=== PATIENT | female | born 1935 | race Asian ===

== ENCOUNTER 2016-07-24 17:00 | Inpatient (IN) | payer MEDICARE, BC ==
[~2016-07-24] VITALS: Ht 152.4 cm; Wt 54.0 kg
[2016-07-24] MEDS ORDERED: ONDANSETRON 4 MG INJ IV STA (17:24)
[2016-07-24] MEDS ORDERED: morphine 4 MG/ML VIAL IV STA (17:24)
[2016-07-24] MEDS ORDERED: SOD CHLORIDE 0.9% 1,000 ML IV STA ×2 (17:25→18:36)
[2016-07-24 17:35] LABS: ADD SCAN DIFF NO
[2016-07-24 17:37] LABS: BASOPHILS % 0.1 % (0.0-2.0); EOSINOPHILS % 0.1 % (0.0-7.0); HEMATOCRIT 43.7 % (37.0-47.0); HEMOGLOBIN 15.1 g/dl (12.0-16.0); LYMPHOCYTES # 0.9 10^3/ul (0.8-2.9); LYMPHOCYTES % 5.3 % (15.0-51.0); MEAN CORPUSCULAR HEMOGLOBIN 31.1 pg (29.0-33.0); MEAN CORPUSCULAR HGB CONC 34.6 g/dl (32.0-37.0); MEAN CORPUSCULAR VOLUME 89.9 fl (82.0-101.0); MEAN PLATELET VOLUME 9.8 fl (7.4-10.4); MONOCYTE # 1.1 10^3/ul (0.3-0.9); MONOCYTES % 6.5 % (0.0-11.0); NEUTROPHIL # 15.3 10^3/ul (1.6-7.5); NEUTROPHILS % 87.3 % (39.0-77.0); PLATELET COUNT 305 10^3/UL (140-415); RED BLOOD COUNT 4.86 10^6/ul (4.20-5.40); WHITE BLOOD COUNT 17.5 10^3/ul (4.8-10.8)
[2016-07-24 17:46] LABS: INR 1.09; PROTIME 14.1 Sec (12.2-14.2); PT RATIO 1.1
[2016-07-24 17:47] LABS: PARTIAL THROMBOPLASTIN TIME 25.4 Sec (25.0-35.0)
[2016-07-24 17:51] LABS: ALBUMIN 3.5 g/dl (3.3-4.9); ALBUMIN/GLOBULIN RATIO 1.12; BILIRUBIN,INDIRECT 0.9 mg/dl (0-1.1); BILIRUBIN,TOTAL 0.9 mg/dl (0.2-1.3); CALCIUM 8.5 mg/dl (8.4-10.2); CREATININE 0.64 mg/dl (0.44-1.00); POTASSIUM 4.1 mmol/L (3.5-5.1); TOTAL PROTEIN 6.6 g/dl (6.1-8.1)
[2016-07-24 18:01] LABS: TROPONIN-I 0.069 ng/ml (0.00-0.12)
--- NOTE | 2016-07-24 18:32 | RADRPT ---
PROCEDURE: XR Chest. CLINICAL INDICATION: Chest and abdomen pain. TECHNIQUE: Single frontal view. COMPARISON: None. FINDINGS: There is mild right basilar atelectasis. The lungs are otherwise clear. The heart size is normal. There is calcification in the aorta consistent with atherosclerosis. There is no pleural effusion. There is no pneumothorax. IMPRESSION: 1. Mild right basilar atelectasis. 2. Atherosclerosis. RPTAT: QQ .Burke Marcus MD, MD Date Time Electronically viewed and signed by .Burke Marcus MD, MD on 07/24/2016 18:32 .R/
[2016-07-24] MEDS ORDERED: CEFEPIME 2GM/50 ML (PMX) 50 ML IVPB STA (18:36)
[2016-07-24] MEDS ORDERED: BLOOD PRESSURE PO (18:36)
[2016-07-24] MEDS ORDERED: CHOLESTEROL PO (18:36)
--- NOTE | 2016-07-24 18:40 | RADRPT ---
PROCEDURE: US Abdomen Limited . CLINICAL INDICATION: Abdominal pain TECHNIQUE: Multiple real-time images were acquired of the patient's right upper quadrant abdomen u tilizing a high resolution transducer. COMPARISON: None FINDINGS: The liver measures 12.4 cm and demonstrates a coarsened echogenicity. The gallbladder is filled with a small amount of bile. 3 mm echogenic potential stone is identified in the gallbladder. The gallbl adder wall is thickened at 4.3 mm. Mild prominence of the mucosa of the gallbladder wall is seen. A moderate amount of pericholecystic fluid is identified adjacent to the gallbladder. The common bile duct measures 3.0 mm in diameter. The visualized portions of the proximal pancreas are unremarkabl e. The tail of the pancreas is not well visualized. Antegrade flow is seen in the portal vein. Right kidney measures 10.2 cm. Right kidney demonstrates a normal echogenicity. No hydronephrosis, masses or stones are noted. IMPRESSION: Cholelithiasis with a thickened gallbladder wall and pericholecystic fluid. Findings raise suspicio n for cholecystitis. Mild prominence of the mucosa of the gallbladder wall. This may reflect accent uation of the mucosa secondary to gallbladder wall edema. Mild sloughing of the inner mucosa and pot ential early gangrenous cholecystitis are not definitely excluded. Further characterization with CT, MRI or HIDA scan could be helpful. Diffuse fatty infiltration of the liver. Tail of the pancreas not well visualized. If characterization of this structure is needed repeat exa m or CT/MRI is recommended. Call report: A call report of the findings was made to Dr. Munoz at 6:38 PM on 07/24/2016 . RPTAT: AA .Shadi Winter MD, MD Date Time Electronically viewed and signed by .Shadi Winter MD, MD on 07/24/2016 18:40 .P/
[2016-07-24 18:52] LABS: ADD UMIC YES; URINE COLOR YELLOW (YELLOW); URINE GLUCOSE (Dip) NEGATIVE (NEGATIVE); URINE KETONES (Dip) 1+ (NEGATIVE); URINE TOTAL PROTEIN (Dip) TRACE (NEGATIVE)
[2016-07-24 18:53] LABS: URINE BLOOD (Dip) TRACE (NEGATIVE); URINE LEUKOCYTE ESTERASE (Dip) NEGATIVE (NEGATIVE); URINE NITRITE (Dip) NEGATIVE (NEGATIVE); URINE UROBILINOGEN (Dip) 0.2 E.U./dL (0.1-1.0)
[2016-07-24 18:56] LABS: URINE BILIRUBIN (Dip) NEGATIVE (NEGATIVE)
[2016-07-24 18:59] LABS: SQUAMOUS EPITHELIAL CELL,UR FEW
[2016-07-24] MEDS ORDERED: ACETAMINOPHEN 325 MG TAB PO PRN (19:30)
[2016-07-24] MEDS ORDERED: NACL 0.9% 3 ML SYG IV SCH (19:30)
[2016-07-24] MEDS ORDERED: ONDANSETRON 4 MG INJ IV PRN ×2 (19:30)
[2016-07-24] MEDS ORDERED: HYDROCODONE/APAP (5/325) TAB PO PRN (19:30)
--- NOTE | 2016-07-24 19:30 | ERA ---
ER Documentation Chief Complaint Date/Time DATE: 07/24/16 TIME: 19:27 Chief Complaint ap x 6 days HPI Patient is an 8-year-old female with breast cancer who presents with abdominal pain. She has had 6 days where she feels like "something is wrong". She has abdominal pain in the right upper quadrant. She had a fall 2010 days ago. She has had decreased intake by mouth over the past 6 days as well. Today she ate a little bit in the morning. The patient has no vomiting or diarrhea. There have been no fevers. The patient lives alone. Upon review of old medical records this the patient's first visit to the emergency department. She does not know the name of her primary doctor. ROS All systems reviewed and are negative except as per history of present illness. Medications Home Meds Reported Medications [Cholesterol] No Conflict Check, PO DAILY 07/24/16 [Blood Pressure] No Conflict Check, PO NON 07/24/16 Allergies Allergies: Coded Allergies: No Known Allergy (Unverified , 07/24/16) PMhx/Soc History of Surgery: No Anesthesia Reaction: No Hx Neurological Disorder: No Hx Respiratory Disorders: No Hx Cardiac Disorders: Yes (htn) Hx Psychiatric Problems: No Hx Miscellaneous Medical Probl: No Hx Alcohol Use: No Hx Substance Use: No Hx Tobacco Use: No Smoking Status: Never smoker FmHx Family History: No diabetes Physical Exam Vitals Vital Signs Date Time Temp Pulse Resp B/P Pulse Ox O2 Delivery O2 Flow Rate FiO2 07/24/16 18:30 98.1 73 20 113/73 99 Room Air 07/24/16 17:55 118/68 07/24/16 17:02 98.1 119 20 132/74 99 Physical Exam Const: Mild distress secondary to pain Head: Atraumatic Eyes: Normal Conjunctiva ENT: Normal External Ears, Nose and Mouth. Neck: Full range of motion..~ No meningismus. Resp: Clear to auscultation bilaterally Cardio: Regular rate and rhythm, no murmurs Abd: Soft, right upper quadrant pain with palpation Skin: No petechiae or rashes Back: No midline or flank tenderness Ext: No cyanosis, or edema Neur: Awake and alert Psych: Normal Mood and Affect Result Diagram: 07/24/16 1730 07/24/16 1730 Results 24 hrs Laboratory Tests Test 4/13/17 17:30 07/24/16 18:30 White Blood Count 17.510^3/ul Red Blood Count 4.8610^6/ul Hemoglobin 15.1g/dl Hematocrit 43.7% Mean Corpuscular Volume 89.9fl Mean Corpuscular Hemoglobin 31.1pg Mean Corpuscular Hemoglobin Concent 34.6g/dl Red Cell Distribution Width 12.0% Platelet Count 35224^3/UL Mean Platelet Volume 9.8fl Neutrophils % 87.3% Lymphocytes % 5.3% Monocytes % 6.5% Eosinophils % 0.1% Basophils % 0.1% Nucleated Red Blood Cells % 0.0/100WBC Neutrophils # 15.310^3/ul Lymphocytes # 0.910^3/ul Monocytes # 1.110^3/ul Eosinophils # 0.010^3/ul Basophils # 0.010^3/ul Nucleated Red Blood Cells # 0.010^3/ul Prothrombin Time 14.1Sec Prothrombin Time Ratio 1.1 INR International Normalized Ratio 1.09 Activated Partial Thromboplast Time 25.4Sec Sodium Level 127mmol/L Potassium Level 4.1mmol/L Chloride Level 91mmol/L Carbon Dioxide Level 31mmol/L Anion Gap 9 Blood Urea Nitrogen 14mg/dl Creatinine 0.64mg/dl Glucose Level 144mg/dl Calcium Level 8.5mg/dl Total Bilirubin 0.9mg/dl Direct Bilirubin 0.00mg/dl Indirect Bilirubin 0.9mg/dl Aspartate Amino Transf (AST/SGOT) 46IU/L Alanine Aminotransferase (ALT/SGPT) 88IU/L Alkaline Phosphatase 60IU/L Troponin I 0.069ng/ml Total Protein 6.6g/dl Albumin 3.5g/dl Globulin 3.10g/dl Albumin/Globulin Ratio 1.12 Lipase 208U/L Urine Color YELLOW Urine Clarity CLEAR Urine pH 5.5 Urine Specific [place] 1.015 Urine Ketones 1+ Urine Nitrite NEGATIVE Urine Bilirubin NEGATIVE Urine Urobilinogen 0.2 E.U./dL Urine Leukocyte Esterase NEGATIVE Urine Microscopic RBC 2-5/HPF Urine Microscopic WBC 0-2/HPF Urine Squamous Epithelial Cells FEW Urine Hemoglobin TRACE Urine Glucose NEGATIVE% Urine Total Protein TRACE Current Medications Medications (Trade) Dose Ordered Sig/Jana Route PRN Reason Start Time Stop Time Status Last Admin Dose Admin Morphine Sulfate (morphine) 4 mg ONCE STAT IV 07/24/16 17:24 4/13/17 17:25 DC 07/24/16 17:52 Ondansetron HCl 4 mg 4 mg ONCE STAT IV 07/24/16 17:24 07/24/16 17:25 DC 07/24/16 17:51 Sodium Chloride 1,000 ml @ 1,000 mls/hr Q1H STAT IV 07/24/16 17:25 07/24/16 18:24 DC 07/24/16 17:52 Cefepime HCl 50 ml @ 100 mls/hr ONCE STAT IVPB 07/24/16 18:36 07/24/16 19:05 DC 07/24/16 18:54 Sodium Chloride (NS) 1,000 ml @ 1,000 mls/hr Q1H STAT IV 07/24/16 18:36 07/24/16 19:35 07/24/16 18:54 Ondansetron HCl (Zofran Inj) 4 mg BRIDGE ORDER PRN IV NAUSEA AND/OR VOMITING 07/24/16 19:30 07/25/16 19:29 Acetaminophen 650 mg 650 mg ER BRIDGE PRN PO MILD PAIN/FEVER 07/24/16 19:30 07/25/16 19:29 Dextrose/Sodium Chloride (D5-1/2ns) 1,000 ml @ 80 mls/hr [id number] IV 07/24/16 19:23 UNV IV Flush (NS 3 ml) 3 ml PER PROTOCOL IV 07/24/16 19:30 UNV Ondansetron HCl (Zofran Inj) 4 mg Q6H PRN IV NAUSEA AND/OR VOMITING 07/24/16 19:30 UNV Acetaminophen (Tylenol Tab) 650 mg Q6H PRN PO PAIN LEVEL 1-3 OR FEVER 07/24/16 19:30 UNV Acetaminophen/ Hydrocodone Bitart ([place] (5/325)) 1 tab Q6H PRN PO MODERATE PAIN LEVEL 4-6 07/24/16 19:30 UNV Morphine Sulfate 2 mg 2 mg Q4H PRN IV SEVERE PAIN LEVEL 7-10 07/24/16 19:30 UNV Piperacillin Sod/ Tazobactam Sod (Zosyn 3.375gm/ 100 ml (Pmx)) 100 ml @ 200 mls/hr Q8 IVPB 07/24/16 22:00 UNV Procedures/MDM Ultrasound shows acute cholecystitis per radiology. CT scan pending at this time. Patient is an 80-year-old female who presents with right upper quadrant abdominal pain. She was found to have leukocytosis and hyponatremia. She was also found to have acute cholecystitis on ultrasound. She was given cefepime IV and I spoke with Dr. Pepper from the panel team for admission as she has Medicare insurance and does not know the name of her primary doctor. I also spoke with Dr. Booth from general surgery who will see patient in consultation. At this point I doubt sepsis but lactic acid is pending. The patient was given a full 2 L of fluid for fluid resuscitation. This is more than the needed 30 mL/kg fluid bolus for sepsis. I doubt appendicitis, pancreatitis, or bowel obstruction. Departure Diagnosis: Primary Impression: Cholecystitis Additional Impressions: Leukocytosis Qualified Code: D72.829 - Leukocytosis, unspecified type Abdominal pain Qualified Code: R10.11 - Right upper quadrant abdominal pain Condition: ANGEL Thomas MD Jul 24, 2016 19:30
--- NOTE | 2016-07-24 19:40 | RADRPT ---
PROCEDURE: CT brain without contrast CLINICAL INDICATION: Fall. Headaches. TECHNIQUE: A CT of the brain was performed utilizing axial sections from the skull base through th e vertex without contrast. Sagittal and coronal images were also reformatted. The exam CTDIvol = 44. 93 mGy and DLP = 720.23 mGy-cm. COMPARISON: None available FINDINGS: No acute intracranial hemorrhage is identified. There is no mass effect or midline shift. No extra -axial fluid collection is seen. The ventricles and sulci are larger in size and configuration for the patient's provided age of 80 years consistent with advanced generalized atrophy. Low attenuatio n of the subcortical and periventricular white matter is not specific but likely reflects chronic sm all vessel ischemic disease. Bentley-white differentiation is preserved with no findings to suggest an acute ischemic infarct. The fourth ventricle is midline and there is no density alteration within the laurie or cerebellum. The osseous structures are unremarkable. The mastoid air cells and visualized paranasal sinuses are clear. RPTAT:HJJR IMPRESSION: Advanced atrophy for the patient's provided age and moderate cerebral white matter disease without e vidence of acute intracranial abnormality or mass effect. Physician Debi Date Time Electronically viewed and signed by Physician Debi on 07/24/2016 19:40 /
--- NOTE | 2016-07-24 20:34 | HP ---
DATE OF ADMISSION: 07/24/2016 CHIEF COMPLAINT: Abdominal pain. HISTORY OF PRESENT ILLNESS: The patient is an 80-year-old female with a history of hypertension; ot herwise, no significant medical history. The patient presents with abdominal pain for the past alona ral days. The patient describes the pain as right upper quadrant tenderness. In the ED, an ultraso und of the abdomen showed cholecystitis. Dr. Booth of surgery was contacted. The patient has no o ther complaints at this time. PAST MEDICAL HISTORY: Hypertension. PAST SURGICAL HISTORY: Denies. HOME MEDICATIONS: Please see medication reconciliation. ALLERGIES: NO KNOWN DRUG ALLERGIES. FAMILY HISTORY: Noncontributory. SOCIAL HISTORY: Denies alcohol, tobacco, or drugs. REVIEW OF SYSTEMS: A 12-point review of systems negative except that discussed in HPI. PHYSICAL EXAMINATION: VITAL SIGNS: Temperature is 98.1, pulse 73, respiratory rate 20, blood pressure is 113/73, saturati on 99% on room air. GENERAL: In no acute distress, alert and oriented. HEENT: Normocephalic, atraumatic. LUNGS: Clear to auscultation. CARDIOVASCULAR: Regular rate and rhythm. ABDOMEN: Soft, nondistended, tender to palpation in the right upper quadrant. EXTREMITIES: No clubbing, cyanosis, or edema. LABORATORY TESTS: White count 8.5, hemoglobin is 15.1, platelets of 305,000. Chemistry within norm al limits except for sodium 127, chloride 91. ALT is 88. INR is 1.09. UA: Within normal limits e xcept for 1+ ketones. DIAGNOSTICS: Gallbladder ultrasound shows cholelithiasis with thickened gallbladder wall and perich olecystic fluid suspicious for cholecystitis. There is also diffuse fatty infiltration of the liver . Chest x-ray shows mild right basilar atelectasis and atherosclerosis. ASSESSMENT AND PLAN: 1. Acute cholecystitis. Dr. Booth of surgery is aware. The patient will likely need a laparoscop ic cholecystectomy. We will treat with Zosyn IV. In the meantime, we will also give morphine p.r.n . for pain control. 2. History of hypertension. Blood pressure is currently stable. 3. Prophylaxis: SCDs. Dictated By: BRANDI SALDIVAR MD BS/NTS Conf#: [id number] DID#: [id number]
--- NOTE | 2016-07-24 20:59 | RADRPT ---
PROCEDURE: CT Abdomen and Pelvis without contrast. CLINICAL INDICATION: Abdominal pain TECHNIQUE: CT scan of the abdomen and pelvis without contrast was performed on a multidetector hig h-resolution CT scanner. The patient was scanned without intravenous contrast. Coronal and sagittal reformatted images were obtained from the axial source images. Images were reviewed on a high-resol NanoH2O PACS workstation. The total exam CTDI equals 5.91 mGy and the total exam DLP equals 333.98 mGy -cm. One or more of the following dose reduction techniques were used: Automated exposure control. Adjustment of the mA and/or kV according to patient size. Use of iterative reconstruction technique. COMPARISON: Right upper quadrant ultrasound 07/24/2016 FINDINGS: CT abdomen: The lung bases are remarkable for trace right pleural effusion. There is bibasilar atelectasis and pleural parenchymal scarring. Visualized ascending aorta measures up to 4 cm, upper limits of [place] l range. The heart size is normal, without pericardial thickening or effusion. There is pneumoperitoneum in the upper abdomen centered around the gallbladder suggesting gallbladde r perforation. The gallbladder is distended with significant wall thickening and pericholecystic in flammatory changes. The liver is normal in size and density without focal mass or intrahepatic biliary dilatation. The spleen is normal in size and homogeneous in density. The stomach is partially collapsed, but is gr ossly unremarkable. The pancreas as visualized is normal. There is no evidence for biliary dilatat ion. The adrenal glands are symmetric and normal. The kidneys are symmetrically unremarkable as we ll. There is 2 mm punctate nonobstructing stone in the upper pole right kidney. The aorta is of normal caliber. Aortic vascular calcifications are present. There is no retroperit etienne lymphadenopathy. The clarence hepatis region is clear. The bowel and mesentery, as visualized, are equally unremarkable. CT pelvis: The small bowel loops situated within the pelvis are unremarkable. The appendix is normal. Several m ild hyperdense fibroids are noted measures up to 3 cm. The pelvic organs are normal. The pelvic nelson ewalls and inguinal regions are clear. The sigmoid colon and rectum are remarkable for sigmoid dive rticulosis. No mass, lymphadenopathy, or free fluid is seen. No acute inflammation is seen. The s urrounding osseous structures are remarkable for degenerative spondylosis of the spine. No osteolyt ic or osteoblastic lesion is detected. A call report was made to Dr. BEA ORTIZ at 07/24/2016 8:50:48 PM following completion of the exami nation. IMPRESSION: 1. Pneumoperitoneum in the upper abdomen predominately around the gallbladder and liver suggesting gallbladder perforation. The gallbladder is markedly distended with significant wall thickening and surrounding inflammatory changes in keeping with cholecystitis. 2. Diverticulosis of the descending and sigmoid colon without evidence of acute diverticulitis. 3. Normal appendix. 4. Punctate nonobstructing stone in the upper pole right kidney. 5. Aortoiliac atherosclerosis. RPTAT: BB .Kin Nunez MD, MD Date Time Electronically viewed and signed by .Kin Nunez MD, MD on 07/24/2016 20:58 .O/
[2016-07-24 21:48] VITALS: TEMP 97.7
[2016-07-24 22:06] VITALS: BP 114/56; RESP 16
[2016-07-24 22:36] VITALS: Ht 152.4 cm; Wt 54.0 kg
[2016-07-24] MEDS: DEXTROSE 5%-0.45% NACL 1,000 ML IV SCH (23:24)
[2016-07-24] MEDS: PIPER-TAZO 3.375 GM IV (PMX) 100 ML IVPB SCH (23:25)
[2016-07-25] VITALS (21 sets, daily range): BP systolic 95–144; BP diastolic 53–80; PULSE 76–82; RESP 12–20
[2016-07-25] MEDS: PIPER-TAZO 3.375 GM IV (PMX) 100 ML IVPB SCH ×3 (05:26→21:13)
[2016-07-25 05:33] LABS: ADD SCAN DIFF NO
[2016-07-25 05:48] LABS: POTASSIUM 3.3 mmol/L (3.5-5.1)
[2016-07-25 05:50] LABS: BASOPHILS % 0.2 % (0.0-2.0); CREATININE 0.56 mg/dl (0.44-1.00); EOSINOPHILS % 0.2 % (0.0-7.0); HEMATOCRIT 36.8 % (37.0-47.0); HEMOGLOBIN 12.3 g/dl (12.0-16.0); LYMPHOCYTES # 0.7 10^3/ul (0.8-2.9); LYMPHOCYTES % 4.9 % (15.0-51.0); MEAN CORPUSCULAR HEMOGLOBIN 31.1 pg (29.0-33.0); MEAN CORPUSCULAR HGB CONC 33.4 g/dl (32.0-37.0); MEAN CORPUSCULAR VOLUME 92.9 fl (82.0-101.0); MONOCYTE # 1.1 10^3/ul (0.3-0.9); MONOCYTES % 8.3 % (0.0-11.0); NEUTROPHIL # 11.4 10^3/ul (1.6-7.5); NEUTROPHILS % 85.5 % (39.0-77.0); PLATELET COUNT 244 10^3/UL (140-415); RED BLOOD COUNT 3.96 10^6/ul (4.20-5.40); RED CELL DISTRIBUTION WIDTH 12.4 % (11.5-14.5); WHITE BLOOD COUNT 13.3 10^3/ul (4.8-10.8)
[2016-07-25 05:51] LABS: CALCIUM 7.4 mg/dl (8.4-10.2); PHOSPHORUS 2.6 mg/dl (2.5-4.9)
--- NOTE | 2016-07-25 07:28 | HP ---
DATE OF ADMISSION: 07/24/2016 REASON FOR CONSULTATION: Acute cholecystitis. HISTORY OF PRESENT ILLNESS: The patient is an otherwise quite healthy 80-year-old female who has mohan d no previous hospitalizations or illnesses, who now presents with severe midepigastric and right up per quadrant abdominal pain. She was noted to have a tender right upper quadrant. A gallbladder ul trasound showed gallstones with a thickened gallbladder and pericholecystic fluid, suspicious for [place] cholecystitis. The patient has had no fevers, chills or jaundice. PAST MEDICAL HISTORY: The patient has a history of a benign right breast mass in the past. OUTPATIENT MEDICATIONS: Blood pressure pill. ALLERGIES: NONE. REVIEW OF SYSTEMS: HEAD, EARS, EYES, NOSE AND THROAT: Unremarkable. PULMONARY: No history of pneumonia, asthma or shortness of breath. CARDIAC: Hypertension. No history of chest pain, [place] or arrhythmia. ABDOMEN: As in the HPI. EXTREMITIES: Unremarkable. PHYSICAL EXAMINATION: GENERAL: The patient is an alert, oriented 80-year-old female, who is in no acute distress. HEAD, EARS, EYES, NOSE, THROAT: Within normal limits. Sclerae are anicteric. LUNGS: Clear. HEART: Regular rhythm. ABDOMEN: There is tender fullness in the right upper quadrant, with a positive Graves's sign. EXTREMITIES: Unremarkable. LABORATORY DATA: Patient's hematocrit is 36.8. White count in the emergency room was 17,500. It h as come down to 13,300. BUN, glucose and electrolytes are unremarkable. INR 1.09. IMPRESSION: This patient has acute cholecystitis and will most certainly be benefited by a laparosc opic cholecystectomy, possibly open. I have discussed the procedure, outcomes, indications, alterna tives and risks in detail with the patient, who has an excellent understanding of the nature of her situation and agrees to the proposed plan of therapy as outlined. Dictated By: RAMON LUNA/CHIARA Conf#: [id number] DID#: [id number]
[2016-07-25] MEDS: DEXTROSE 5%-0.45% NACL 1,000 ML IV SCH ×4 (07:53→21:12)
[2016-07-25] MEDS ORDERED: POTASSIUM CHLORIDE 20 MEQ in SOD CHLORIDE 0.9% 100 ML IVPB ONE (08:30)
[2016-07-25] MEDS ORDERED: FENTAnyl 50 MCG/ML VIAL IV PRN (09:00)
[2016-07-25] MEDS ORDERED: PROCHLORPERAZINE 10 MG INJ IV PRN (09:00)
[2016-07-25] MEDS ORDERED: HYDROmorphONE (0.2 MG/ML) 10ML SYG IV PRN (09:00)
[2016-07-25] MEDS ORDERED: MEPERIDINE 25 MG INJ IV PRN (09:00)
[2016-07-25] MEDS ORDERED: ONDANSETRON 4 MG INJ IV PRN ×2 (09:00→11:00)
[2016-07-25] MEDS ORDERED: EPHEDrine SULFATE 50 MG/5 ML SYG IV PRN (09:00)
[2016-07-25] MEDS ORDERED: LABETALOL HCL 20MG INJ IV PRN (09:00)
[2016-07-25] MEDS ORDERED: DIPHENHYDRAMINE 50 MG INJ IV PRN (09:00)
[2016-07-25] MEDS ORDERED: hydrALAzine 20 MG INJ IV PRN (09:00)
[2016-07-25] MEDS ORDERED: SUCCINYLCHOLINE CHLORIDE 100 MG/5 ML SYG IV ONE (09:29)
[2016-07-25] MEDS ORDERED: LIDOCAINE 2% (SDV) 5 ML INJ ONE (09:29)
[2016-07-25] MEDS ORDERED: FENTAnyl 50 MCG/ML VIAL ONE (09:29)
[2016-07-25] MEDS ORDERED: PROPOFOL 20 ML ONE (09:29)
[2016-07-25] MEDS ORDERED: ROCURONIUM 50 MG INJ ONE (09:47)
[2016-07-25] MEDS ORDERED: DIPHENHYDRAMINE 50 MG INJ ONE (09:48)
[2016-07-25] MEDS ORDERED: ONDANSETRON 4 MG INJ ONE (09:48)
[2016-07-25] MEDS ORDERED: DEXAMETHASONE 4 MG/ML 1 ML INJ ONE (09:48)
[2016-07-25] MEDS ORDERED: BUPIVACAINE 0.25% (MPF) 30 ML INJ ONE (09:52)
[2016-07-25] MEDS ORDERED: GLYCOPYRROLATE 0.4 MG INJ ONE (10:00)
[2016-07-25] MEDS ORDERED: NEOSTIGMINE 3 MG/3 ML SYRINGE ONE (10:00)
[2016-07-25] MEDS ORDERED: ACETAMINOPHEN 1000MG/100ML IV 100 ML ONE (10:28)
[2016-07-25] MEDS ORDERED: BUPIVACAINE 0.25% (MPF) 30 ML INJ INJ ONE (10:30)
--- NOTE | 2016-07-25 10:59 | OPR ---
DATE OF OPERATION: PREOPERATIVE DIAGNOSIS: Acute cholecystitis. OPERATION PERFORMED: 1. Laparoscopic cholecystectomy. 2. Placement of drain. POSTOPERATIVE DIAGNOSIS: Acute cholecystitis. SURGEON: Ramon Booth MD ANESTHESIA: General. DESCRIPTION OF PROCEDURE: After satisfactory general anesthesia was achieved, the abdomen was prepp ed and draped in the usual fashion. The abdomen was insufflated with carbon dioxide through an umbi lical Veress needle to 15 mmHg pressure. The Veress needle was removed and the umbilical incision e xtended to 5 mm, through which a 5 mm trocar was placed. A 5-mm, 0-degree lens was placed. Laparos copy showed an acutely inflamed, edematous suppurative gallbladder covered with fibrin. Under direc t visualization, a 10 mm epigastric trocar was placed as well as two 5 mm right lateral abdominal tr ocars. The dome of the gallbladder was grasped and retracted superiorly. Lisandra pouch was retrac tessie inferiorly. The hepatoduodenal ligament was carefully dissected. The cystic duct was dissected high at the junction of the gallbladder and cystic duct, where it was triply hemoclipped and divide d between clips. The cystic artery was identified immediately posteriorly, this was a very small cy stic artery measuring a millimeter or so, and it was divided over a clip. The gallbladder was then dissected from below using electrocautery dissection and placed fully intact into an EndoCatch, dougie rios via the epigastric route. Hemostasis of the liver bed was adequate and irrigant returned clear. Because of the marked degree of infection and inflammation, it was elected to place a drain. A #1 9 round Chance drain was placed draining the right subhepatic space and gallbladder fossa. It exited through the lateral most puncture site where it was secured to the skin with 2-0 nylon. The abdome n was then desufflated and the trocars were removed. The fascia of the epigastrium was closed with a single suture of 0 Vicryl. The skin punctures were infiltrated with 30 mL of 0.25% plain Marcaine and closed with giorgio. OPERATIVE BLOOD LOSS: Approximately 30 mL. Sponge and needle counts reported as correct x2. The patient tolerated the procedure well and without incident or complication. Dictated By: RAMON LUNA/CHIARA Conf#: [id number] [facility]#: [id number]
[2016-07-25] MEDS ORDERED: morphine 2 MG INJ IV PRN (11:00)
--- NOTE | 2016-07-25 17:53 | PN ---
Date/Time of Note Date/Time of Note DATE: 07/25/16 TIME: 17:51 Assessment/Plan VTE Prophylaxis VTE Prophylaxis Intervention: SCD's Lines/Catheters IV Catheter Type (from Nrsg): Peripheral IV Assessment/Plan Chief Complaint/Hosp Course 1. Acute cholecystitis status post lap james with drain placement Pain control, continue Zosyn DC when cleared by surgery 2. History of hypertension- Blood pressure is currently stable without any meds 3. Prophylaxis: SCDs. Problems: Subjective 24 Hr Interval Summary Gastrointestinal: pain Exam/Review of Systems Vital Signs Vitals Vital Signs Date Time Temp Pulse Resp B/P Pulse Ox O2 Delivery O2 Flow Rate FiO2 07/25/16 15:24 98.9 78 16 100/60 95 07/25/16 11:46 Room Air 07/25/16 10:55 8.0 Intake and Output 07/24/16 07/24/16 07/25/16 15:00 23:00 07:00 Intake Total 2050 ml 1250 ml Balance 2050 ml 1250 ml Exam Constitutional: alert, oriented Respiratory: clear to auscultation Cardiovascular: regular rate and rhythm Gastrointestinal: soft, No distended Musculoskeletal: nl extremities to inspection Results Result Diagram: 07/25/16 0500 07/25/16 0500 Results 24 hrs Laboratory Tests Test 07/24/16 18:30 07/24/16 20:20 07/24/16 22:30 07/25/16 00:39 Urine Color YELLOW Urine Clarity CLEAR Urine pH 5.5 Urine Specific [place] 1.015 Urine Ketones 1+ H Urine Nitrite NEGATIVE Urine Bilirubin NEGATIVE Urine Urobilinogen 0.2 E.U./dL Urine Leukocyte Esterase NEGATIVE Urine Microscopic RBC 2-5 Urine Microscopic WBC 0-2 Urine Squamous Epithelial Cells FEW Urine Hemoglobin TRACE Urine Glucose NEGATIVE Urine Total Protein TRACE Lactic Acid Level 1.0 1.2 1.3 Test 07/25/16 05:00 White Blood Count 13.3 #H Red Blood Count 3.96 L Hemoglobin 12.3 Hematocrit 36.8 L Mean Corpuscular Volume 92.9 Mean Corpuscular Hemoglobin 31.1 Mean Corpuscular Hemoglobin Concent 33.4 Red Cell Distribution Width 12.4 Platelet Count 244 Mean Platelet Volume 10.0 Neutrophils % 85.5 H Lymphocytes % 4.9 L Monocytes % 8.3 Eosinophils % 0.2 Basophils % 0.2 Nucleated Red Blood Cells % 0.0 Neutrophils # 11.4 H Lymphocytes # 0.7 L Monocytes # 1.1 H Eosinophils # 0.0 Basophils # 0.0 Nucleated Red Blood Cells # 0.0 Sodium Level 132 L Potassium Level 3.3 L Chloride Level 99 Carbon Dioxide Level 27 Anion Gap 9 Blood Urea Nitrogen 11 Creatinine 0.56 Glucose Level 118 Hemoglobin A1c 5.6 Calcium Level 7.4 L Phosphorus Level 2.6 Magnesium Level 2.0 Medications Medications Current Medications Dextrose/Sodium Chloride (D5-1/2ns) 1,000 ml @ 80 mls/hr [id number] IV Last administered on 07/24/16 23:24; Admin Dose 80 MLS/HR; Start 07/24/16 at 19:23 Ondansetron HCl (Zofran Inj) 4 mg Q6H PRN IV NAUSEA AND/OR VOMITING; Start at 19:30 Acetaminophen (Tylenol Tab) 650 mg Q6H PRN PO PAIN LEVEL 1-3 OR FEVER; Start at 19:30 Acetaminophen/ Hydrocodone Bitart ([place] (5/325)) 1 tab Q6H PRN PO MODERATE PAIN LEVEL 4-6; Start 07/24/16 at 19:30 Morphine Sulfate 2 mg 2 mg Q4H PRN IV SEVERE PAIN LEVEL 7-10; Start 07/24/16 at 19:30 Piperacillin Sod/ Tazobactam Sod (Zosyn 3.375gm/ 100 ml (Pmx)) 100 ml @ 200 mls /hr Q8 IVPB Last administered on 07/25/16 14:41; Admin Dose 200 MLS/HR; Start 07/24/16 at 22:00 Oxycodone/ Acetaminophen (Percocet (5/ 325)) 1 tab Q4H PRN PO MILD PAIN (1-3); Start 07/25/16 at 11:00 Oxycodone/ Acetaminophen (Percocet (5/ 325)) 2 tab Q4H PRN PO MODERATE PAIN (4- 6); Start 07/25/16 at 11:00 Morphine Sulfate (morphine) 2 mg ONCE PRN IV SEVERE PAIN LEVEL 7-10; Start at 11:00; Stop 07/26/16 at 10:59 Ondansetron HCl (Zofran Inj) 4 mg Q6H PRN IV NAUSEA; Start 07/25/16 at 11:00 BRANDI SALDIVAR Jul 25, 2016 17:53
[2016-07-25] MEDS: morphine 2 MG INJ IV PRN (21:13)
[2016-07-26] MEDS: DEXTROSE 5%-0.45% NACL 1,000 ML IV SCH ×2 (05:31→21:22)
[2016-07-26] MEDS: PIPER-TAZO 3.375 GM IV (PMX) 100 ML IVPB SCH ×3 (05:32→21:14)
[2016-07-26] MEDS: morphine 2 MG INJ IV PRN (05:33)
[2016-07-26] MEDS: DIPHENHYDRAMINE 25 MG CAP PO PRN ×2 (05:37→17:07)
[2016-07-26 05:40] LABS: ADD SCAN DIFF NO
[2016-07-26 05:45] LABS: ABNORMAL IP MESSAGE 1; BASOPHILS % 0.1 % (0.0-2.0); EOSINOPHILS % 0.1 % (0.0-7.0); HEMATOCRIT 37.3 % (37.0-47.0); HEMOGLOBIN 12.3 g/dl (12.0-16.0); LYMPHOCYTES # 0.6 10^3/ul (0.8-2.9); LYMPHOCYTES % 3.3 % (15.0-51.0); MEAN CORPUSCULAR HEMOGLOBIN 30.8 pg (29.0-33.0); MEAN CORPUSCULAR VOLUME 93.3 fl (82.0-101.0); MEAN PLATELET VOLUME 10.1 fl (7.4-10.4); MONOCYTE # 1.1 10^3/ul (0.3-0.9); MONOCYTES % 6.4 % (0.0-11.0); NEUTROPHIL # 14.8 10^3/ul (1.6-7.5); NEUTROPHILS % 89.4 % (39.0-77.0); PLATELET COUNT 300 10^3/UL (140-415); RED CELL DISTRIBUTION WIDTH 12.5 % (11.5-14.5); WHITE BLOOD COUNT 16.6 10^3/ul (4.8-10.8)
[2016-07-26 06:19] LABS: ALBUMIN 2.5 g/dl (3.3-4.9)
[2016-07-26 06:20] LABS: POTASSIUM 3.3 mmol/L (3.5-5.1)
[2016-07-26 06:22] LABS: ALBUMIN/GLOBULIN RATIO 0.89; BILIRUBIN,INDIRECT 0.4 mg/dl (0-1.1); BILIRUBIN,TOTAL 0.4 mg/dl (0.2-1.3); CALCIUM 7.7 mg/dl (8.4-10.2); CREATININE 0.54 mg/dl (0.44-1.00); TOTAL PROTEIN 5.3 g/dl (6.1-8.1)
[2016-07-26 07:30] VITALS: BP 99/56; RESP 19
--- NOTE | 2016-07-26 10:57 | PN ---
Date/Time of Note Date/Time of Note DATE: 07/26/16 TIME: 10:54 Assessment/Plan VTE Prophylaxis VTE Prophylaxis Intervention: SCD's Lines/Catheters IV Catheter Type (from Nrsg): Peripheral IV Assessment/Plan Assessment/Plan 1. Acute cholecystitis status post lap james with drain placement, WBC still high on IV abx zosyn Pain control, continue Zosyn 2. History of hypertension- Blood pressure is currently stable without any meds 3. Prophylaxis: SCDs. IVF D51/2 NS Pain control IV abx zosyn G surg to deccide about drain removal will follow up Subjective 24 Hr Interval Summary Free Text/Dictation s/p lap james, drain in place 410 cc in drain in last 24 hr Exam/Review of Systems Vital Signs Vitals Vital Signs Date Time Temp Pulse Resp B/P Pulse Ox O2 Delivery O2 Flow Rate FiO2 07/26/16 07:30 98.3 81 19 99/56 97 07/25/16 11:46 Room Air 07/25/16 10:55 8.0 Intake and Output 07/25/16 07/25/16 07/26/16 15:00 23:00 07:00 Intake Total 270 ml 760 ml 1500 ml Output Total 40 ml 400 ml Balance 230 ml 360 ml 1500 ml Exam Constitutional: alert, oriented Respiratory: clear to auscultation Cardiovascular: regular rate and rhythm Gastrointestinal: soft, No distended Musculoskeletal: nl extremities to inspection Results Result Diagram: 07/26/16 0422 07/26/16 0422 Results 24 hrs Laboratory Tests Test 07/26/16 04:22 White Blood Count 16.6 #H Red Blood Count 4.00 L Hemoglobin 12.3 Hematocrit 37.3 Mean Corpuscular Volume 93.3 Mean Corpuscular Hemoglobin 30.8 Mean Corpuscular Hemoglobin Concent 33.0 Red Cell Distribution Width 12.5 Platelet Count 300 # Mean Platelet Volume 10.1 Neutrophils % 89.4 H Lymphocytes % 3.3 L Monocytes % 6.4 Eosinophils % 0.1 Basophils % 0.1 Nucleated Red Blood Cells % 0.0 Neutrophils # 14.8 H Lymphocytes # 0.6 L Monocytes # 1.1 H Eosinophils # 0.0 Basophils # 0.0 Nucleated Red Blood Cells # 0.0 Sodium Level 132 L Potassium Level 3.3 L Chloride Level 95 L Carbon Dioxide Level 30 Anion Gap 10 Blood Urea Nitrogen 7 Creatinine 0.54 Glucose Level 159 Calcium Level 7.7 L Total Bilirubin 0.4 Direct Bilirubin 0.00 Indirect Bilirubin 0.4 Aspartate Amino Transf (AST/SGOT) 70 H Alanine Aminotransferase (ALT/SGPT) 81 H Alkaline Phosphatase 46 Total Protein 5.3 #L Albumin 2.5 #L Globulin 2.80 Albumin/Globulin Ratio 0.89 Medications Medications Current Medications Dextrose/Sodium Chloride (D5-1/2ns) 1,000 ml @ 80 mls/hr [id number] IV Last administered on 07/26/16 05:31; Admin Dose 80 MLS/HR; Start 07/24/16 at 19:23 Ondansetron HCl (Zofran Inj) 4 mg Q6H PRN IV NAUSEA AND/OR VOMITING; Start at 19:30 Acetaminophen (Tylenol Tab) 650 mg Q6H PRN PO PAIN LEVEL 1-3 OR FEVER; Start at 19:30 Acetaminophen/ Hydrocodone Bitart ([place] (5/325)) 1 tab Q6H PRN PO MODERATE PAIN LEVEL 4-6; Start 07/24/16 at 19:30 Morphine Sulfate 2 mg 2 mg Q4H PRN IV SEVERE PAIN LEVEL 7-10 Last administered on 07/26/16 05:33; Admin Dose 2 MG; Start 07/24/16 at 19:30 Piperacillin Sod/ Tazobactam Sod (Zosyn 3.375gm/ 100 ml (Pmx)) 100 ml @ 200 mls /hr Q8 IVPB Last administered on 07/26/16 05:32; Admin Dose 200 MLS/HR; Start 07/24/16 at 22:00 Oxycodone/ Acetaminophen (Percocet (5/ 325)) 1 tab Q4H PRN PO MILD PAIN (1-3); Start 07/25/16 at 11:00 Oxycodone/ Acetaminophen (Percocet (5/ 325)) 2 tab Q4H PRN PO MODERATE PAIN (4- 6); Start 07/25/16 at 11:00 Morphine Sulfate (morphine) 2 mg ONCE PRN IV SEVERE PAIN LEVEL 7-10; Start at 11:00; Stop 07/26/16 at 10:59 Ondansetron HCl (Zofran Inj) 4 mg Q6H PRN IV NAUSEA; Start 07/25/16 at 11:00 Diphenhydramine HCl (Benadryl) 25 mg Q6H PRN PO ITCHING Last administered on t 05:37; Admin Dose 25 MG; Start 07/25/16 at 22:00 ALEX SANCHEZ MD Jul 26, 2016 10:57
[2016-07-26] MEDS ORDERED: ONDANSETRON 4 MG INJ IV PRN (11:30)
[2016-07-26] MEDS ORDERED: POTASSIUM CHLORIDE 20 MEQ in SOD CHLORIDE 0.9% 100 ML IVPB ONE (12:00)
[2016-07-26] MEDS: OXYCODONE/ACETAMINOPHEN (5/325) TAB PO PRN ×2 (12:28→21:14)
--- NOTE | 2016-07-26 15:04 | PN ---
Date/Time of Note Date/Time of Note DATE: 07/26/16 TIME: 15:00 Assessment/Plan Lines/Catheters IV [facility] Type (from [facility]): Peripheral IV Assessment/Plan Chief Complaint/Hosp Course Coverage for Dr. Booth: 1. Paralytic ileus -oob/ambulate -chew gum 2. Transaminitis 2nd acute surgery and inflammation -monitor 3. Leukocytosis as above -abx -drain -monitor -oob/ambulate -IS 4. Hypoalbuminemia -eventual diet optimization 5. Hypokalemia -replete 6. Hyponatremia -correct with fluid management 7. HTN -nut and med optimization 8. Hyperlipidemia -nut and med optimization Thank you, Problems: Subjective 24 Hr Interval Summary No f/c/n/v. No flatus or bm. Drain has been leaking around insertion site. No cough/sz/rash/mohan/dizzy/visual or neuro changes. No dysuria. Leukocytosis with slight elevation of LFTs. Exam/Review of Systems Vital Signs Vitals Vital Signs Date Time Temp Pulse Resp B/P Pulse Ox O2 Delivery O2 Flow Rate FiO2 07/26/16 07:30 98.3 81 19 99/56 97 07/25/16 11:46 Room Air 07/25/16 10:55 8.0 Intake and Output 07/25/16 07/25/16 07/26/16 15:00 23:00 07:00 Intake Total 270 ml 760 ml 1500 ml Output Total 40 ml 400 ml Balance 230 ml 360 ml 1500 ml Exam Constitutional: alert, oriented, No distress Psych: nl mood/affect, No anxiety Head: atraumatic, normocephalic Eyes: EOMI, PERRL, nl conjunctiva, No icteric ENMT: mucosa pink and moist, nl external ears & nose, nl lips & teeth Neck: non-tender, supple, No jvd Respiratory: normal air movement, No congested cough, No labored breathing Cardiovascular: regular rate and rhythm, No edema Gastrointestinal: other (CHETAN with serosang), soft, tender (min), No distended, No rebound or guarding Musculoskeletal: nl extremities to inspection, No joint tenderness Extremities: normal pulses, No calf tenderness, No cyanosis Neurological: nl mental status, nl speech, nl strength Skin: nl turgor, No diaphoresis, No rash or lesions Lymph: nl lymph nodes Results Result Diagram: 07/26/16 0422 07/26/16 0422 ANNA MARIE DARLING MD Jul 26, 2016 15:04
[2016-07-26 19:37] VITALS: BP 112/62; RESP 20
[2016-07-27] MEDS: DIPHENHYDRAMINE 25 MG CAP PO PRN (04:24)
[2016-07-27] MEDS: PIPER-TAZO 3.375 GM IV (PMX) 100 ML IVPB SCH ×3 (05:09→21:07)
[2016-07-27 05:12] LABS: ADD SCAN DIFF NO
[2016-07-27 05:18] LABS: INR 1.15; PROTIME 14.7 Sec (12.2-14.2); PT RATIO 1.1
[2016-07-27 05:19] LABS: PARTIAL THROMBOPLASTIN TIME 29.3 Sec (25.0-35.0)
[2016-07-27 05:21] LABS: ALBUMIN 2.7 g/dl (3.3-4.9); ALBUMIN/GLOBULIN RATIO 0.93; BILIRUBIN,INDIRECT 0.4 mg/dl (0-1.1); BILIRUBIN,TOTAL 0.4 mg/dl (0.2-1.3); CALCIUM 7.7 mg/dl (8.4-10.2); CREATININE 0.53 mg/dl (0.44-1.00); POTASSIUM 3.3 mmol/L (3.5-5.1); TOTAL PROTEIN 5.6 g/dl (6.1-8.1)
[2016-07-27 05:51] LABS: BASOPHILS % 0.1 % (0.0-2.0); EOSINOPHILS # 0.1 10^3/ul (0.0-0.5); EOSINOPHILS % 0.7 % (0.0-7.0); HEMOGLOBIN 13.5 g/dl (12.0-16.0); LYMPHOCYTES # 0.9 10^3/ul (0.8-2.9); LYMPHOCYTES % 6.3 % (15.0-51.0); MEAN CORPUSCULAR HEMOGLOBIN 31.3 pg (29.0-33.0); MEAN CORPUSCULAR HGB CONC 33.8 g/dl (32.0-37.0); MEAN CORPUSCULAR VOLUME 92.6 fl (82.0-101.0); MEAN PLATELET VOLUME 9.7 fl (7.4-10.4); MONOCYTES % 6.6 % (0.0-11.0); NEUTROPHIL # 12.7 10^3/ul (1.6-7.5); NEUTROPHILS % 85.8 % (39.0-77.0); PLATELET COUNT 335 10^3/UL (140-415); RED BLOOD COUNT 4.32 10^6/ul (4.20-5.40); RED CELL DISTRIBUTION WIDTH 12.4 % (11.5-14.5); WHITE BLOOD COUNT 14.8 10^3/ul (4.8-10.8)
[2016-07-27 07:30] VITALS: BP 109/64; RESP 19
[2016-07-27] MEDS ORDERED: POTASSIUM CHLORIDE 20 MEQ in SOD CHLORIDE 0.9% 100 ML IVPB ONE (11:30)
--- NOTE | 2016-07-27 12:31 | PN ---
Date/Time of Note Date/Time of Note DATE: 07/27/16 TIME: 12:29 Assessment/Plan VTE Prophylaxis VTE Prophylaxis Intervention: SCD's Lines/Catheters IV Catheter Type (from Nrsg): Peripheral IV Assessment/Plan Assessment/Plan 1. Acute cholecystitis status post lap james with drain placement, WBC 14.9 on IV abx zosyn Pain control, 2. History of hypertension- Blood pressure is currently stable without any meds 3. Prophylaxis: SCDs. IVF D51/2 NS- continue it KCL Repalcement pt tolerating clear liquids but still having high drain output, will have G surgery to decide about Advancement of diet and drain plan will follow up Subjective 24 Hr Interval Summary Free Text/Dictation pain controlled, K low, still having large drain output Exam/Review of Systems Vital Signs Vitals Vital Signs Date Time Temp Pulse Resp B/P Pulse Ox O2 Delivery O2 Flow Rate FiO2 07/27/16 07:30 98.9 86 19 109/64 96 07/25/16 11:46 Room Air 07/25/16 10:55 8.0 Intake and Output 07/26/16 07/26/16 07/27/16 15:00 23:00 07:00 Intake Total 400 ml 2050 ml 1375 ml Output Total 985 ml 450 ml Balance 400 ml 1065 ml 925 ml Exam Constitutional: alert, oriented Respiratory: clear to auscultation Cardiovascular: regular rate and rhythm Gastrointestinal: soft, No distended, + CHETAN drain in place Musculoskeletal: nl extremities to inspection Results Result Diagram: 07/27/16 0415 07/27/16 0415 Results 24 hrs Laboratory Tests Test 07/27/16 04:15 White Blood Count 14.8 H Red Blood Count 4.32 Hemoglobin 13.5 Hematocrit 40.0 Mean Corpuscular Volume 92.6 Mean Corpuscular Hemoglobin 31.3 Mean Corpuscular Hemoglobin Concent 33.8 Red Cell Distribution Width 12.4 Platelet Count 335 Mean Platelet Volume 9.7 Neutrophils % 85.8 H Lymphocytes % 6.3 L Monocytes % 6.6 Eosinophils % 0.7 Basophils % 0.1 Nucleated Red Blood Cells % 0.0 Neutrophils # 12.7 H Lymphocytes # 0.9 Monocytes # 1.0 H Eosinophils # 0.1 Basophils # 0.0 Nucleated Red Blood Cells # 0.0 Prothrombin Time 14.7 H Prothrombin Time Ratio 1.1 INR International Normalized Ratio 1.15 Activated Partial Thromboplast Time 29.3 Sodium Level 131 L Potassium Level 3.3 L Chloride Level 98 Carbon Dioxide Level 30 Anion Gap 6 L Blood Urea Nitrogen 6 L Creatinine 0.53 Glucose Level 104 # Calcium Level 7.7 L Total Bilirubin 0.4 Direct Bilirubin 0.00 Indirect Bilirubin 0.4 Aspartate Amino Transf (AST/SGOT) 46 Alanine Aminotransferase (ALT/SGPT) 69 Alkaline Phosphatase 67 Total Protein 5.6 L Albumin 2.7 L Globulin 2.90 Albumin/Globulin Ratio 0.93 Medications Medications Current Medications Dextrose/Sodium Chloride (D5-1/2ns) 1,000 ml @ 70 mls/hr [id number] IV Last administered on 07/26/16 21:22; Admin Dose 70 MLS/HR; Start 07/24/16 at 19:23 Acetaminophen (Tylenol Tab) 650 mg Q6H PRN PO PAIN LEVEL 1-3 OR FEVER; Start at 19:30 Acetaminophen/ Hydrocodone Bitart ([place] (5/325)) 1 tab Q6H PRN PO MODERATE PAIN LEVEL 4-6; Start 07/24/16 at 19:30 Morphine Sulfate 2 mg 2 mg Q4H PRN IV SEVERE PAIN LEVEL 7-10 Last administered on 07/26/16 05:33; Admin Dose 2 MG; Start 07/24/16 at 19:30 Piperacillin Sod/ Tazobactam Sod (Zosyn 3.375gm/ 100 ml (Pmx)) 100 ml @ 200 mls /hr Q8 IVPB Last administered on 07/27/16 05:09; Admin Dose 200 MLS/HR; Start 07/24/16 at 22:00 Oxycodone/ Acetaminophen (Percocet (5/ 325)) 1 tab Q4H PRN PO MILD PAIN (1-3); Start 07/25/16 at 11:00 Oxycodone/ Acetaminophen (Percocet (5/ 325)) 2 tab Q4H PRN PO MODERATE PAIN (4- 6) Last administered on 07/26/16 21:14; Admin Dose 2 TAB; Start 07/25/16 at 11: 00 Diphenhydramine HCl (Benadryl) 25 mg Q6H PRN PO ITCHING Last administered on 4/ 16/17at 04:24; Admin Dose 25 MG; Start 07/25/16 at 22:00 Ondansetron HCl 4 mg 4 mg Q4H PRN IV NAUSEA AND/OR VOMITING; Start 07/26/16 at 11:30 Potassium Chloride/Sodium Chloride (KCl/NS) 110 ml @ 55 mls/hr ONCE ONCE IVPB Last administered on 07/27/16t 11:35; Admin Dose 55 MLS/HR; Start 07/27/16 at 11:30; Stop 07/27/16 at 13:29 ALEX SANCHEZ MD Jul 27, 2016 12:31
[2016-07-27] MEDS: OXYCODONE/ACETAMINOPHEN (5/325) TAB PO PRN ×2 (12:37→19:03)
[2016-07-27] MEDS: DEXTROSE 5%-0.45% NACL 1,000 ML IV SCH (14:03)
[2016-07-27 21:55] VITALS: BP 98/59; RESP 18
--- NOTE | 2016-07-27 22:13 | PN ---
Date/Time of Note Date/Time of Note DATE: 07/27/16 TIME: 22:12 Assessment/Plan Lines/Catheters IV Catheter Type (from [facility]): Peripheral IV Assessment/Plan Chief Complaint/Hosp Course Coverage for Dr. Booth: 1. Paralytic ileus. Improving -oob/ambulate -chew gum 2. Transaminitis 2nd acute surgery and inflammation -monitor 3. Leukocytosis as above -abx -drain -monitor -oob/ambulate -IS 4. Hypoalbuminemia -eventual diet optimization 5. Hypokalemia -replete 6. Hyponatremia -correct with fluid management 7. HTN -nut and med optimization 8. Hyperlipidemia -nut and med optimization Thank you, Problems: Subjective 24 Hr Interval Summary No f/c/n/v. No flatus or bm. Drain has been leaking around insertion site. No cough/sz/rash/mohan/dizzy/visual or neuro changes. No dysuria. Leukocytosis slowly improving. LFTs improved. High CHETAN output. Exam/Review of Systems Vital Signs Vitals Vital Signs Date Time Temp Pulse Resp B/P Pulse Ox O2 Delivery O2 Flow Rate FiO2 07/27/16 21:55 98.4 81 18 98/59 96 07/25/16 11:46 Room Air 07/25/16 10:55 8.0 Intake and Output 07/26/16 07/26/16 07/27/16 15:00 23:00 07:00 Intake Total 400 ml 2050 ml 1375 ml Output Total 985 ml 450 ml Balance 400 ml 1065 ml 925 ml Exam Free Text/Dictation Constitutional: alert, oriented, No distress Psych: nl mood/affect, No anxiety Head: atraumatic, normocephalic Eyes: EOMI, PERRL, nl conjunctiva, No icteric ENMT: mucosa pink and moist, nl external ears & nose, nl lips & teeth Neck: non-tender, supple, No jvd Respiratory: normal air movement, No congested cough, No labored breathing Cardiovascular: regular rate and rhythm, No edema Gastrointestinal: other (CHETAN with serosang), soft, tender (min), No distended, No rebound or guarding Musculoskeletal: nl extremities to inspection, No joint tenderness Extremities: normal pulses, No calf tenderness, No cyanosis Neurological: nl mental status, nl speech, nl strength Skin: nl turgor, No diaphoresis, No rash or lesions Lymph: nl lymph nodes Results Result Diagram: 07/27/16 0415 07/27/16 0415 ANNA MARIE DARLING MD Jul 27, 2016 22:13
[2016-07-28] VITALS (7 sets, daily range): BP systolic 81–119; BP diastolic 51–68; PULSE 104; RESP 18–20
[2016-07-28] MEDS: OXYCODONE/ACETAMINOPHEN (5/325) TAB PO PRN ×2 (01:27→16:31)
[2016-07-28] MEDS ORDERED: SOD CHLORIDE 0.9% 500 ML IV ONE (01:30)
[2016-07-28] MEDS: DEXTROSE 5%-0.45% NACL 1,000 ML IV SCH ×3 (03:28→18:30)
[2016-07-28] MEDS: PIPER-TAZO 3.375 GM IV (PMX) 100 ML IVPB SCH ×3 (05:12→21:27)
[2016-07-28 05:42] LABS: ADD SCAN DIFF NO
[2016-07-28 05:50] LABS: BASOPHILS % 0.1 % (0.0-2.0); EOSINOPHILS % 0.2 % (0.0-7.0); HEMATOCRIT 27.3 % (37.0-47.0); HEMOGLOBIN 9.2 g/dl (12.0-16.0); LYMPHOCYTES # 0.7 10^3/ul (0.8-2.9); LYMPHOCYTES % 3.9 % (15.0-51.0); MEAN CORPUSCULAR HEMOGLOBIN 31.6 pg (29.0-33.0); MEAN CORPUSCULAR HGB CONC 33.7 g/dl (32.0-37.0); MEAN CORPUSCULAR VOLUME 93.8 fl (82.0-101.0); MEAN PLATELET VOLUME 9.4 fl (7.4-10.4); MONOCYTE # 1.2 10^3/ul (0.3-0.9); MONOCYTES % 6.6 % (0.0-11.0); NEUTROPHIL # 15.5 10^3/ul (1.6-7.5); NEUTROPHILS % 88.5 % (39.0-77.0); PLATELET COUNT 303 10^3/UL (140-415); RED BLOOD COUNT 2.91 10^6/ul (4.20-5.40); RED CELL DISTRIBUTION WIDTH 12.6 % (11.5-14.5); WHITE BLOOD COUNT 17.5 10^3/ul (4.8-10.8)
[2016-07-28 05:59] LABS: INR 1.46; PROTIME 17.8 Sec (12.2-14.2); PT RATIO 1.4
[2016-07-28 06:00] LABS: PARTIAL THROMBOPLASTIN TIME 34.9 Sec (25.0-35.0)
[2016-07-28 07:53] LABS: POTASSIUM 3.5 mmol/L (3.5-5.1)
[2016-07-28 07:56] LABS: CREATININE 0.51 mg/dl (0.44-1.00)
[2016-07-28 07:57] LABS: CALCIUM 7.6 mg/dl (8.4-10.2)
--- NOTE | 2016-07-28 10:34 | PN ---
Date/Time of Note Date/Time of Note DATE: 07/28/16 TIME: 10:32 Assessment/Plan VTE Prophylaxis VTE Prophylaxis Intervention: SCD's Lines/Catheters IV Catheter Type (from Nrsg): Peripheral IV Assessment/Plan Assessment/Plan 1. Acute cholecystitis status post lap james with drain placement, WBC 14.9 on IV abx zosyn Pain control, 2. History of hypertension- Blood pressure is currently stable without any meds 3. Prophylaxis: SCDs. IVF D51/2 NS- continue it KCL Repalcement pt had a large BM today with blood clots, Pain control SCD for DVT Prophylaxis Subjective 24 Hr Interval Summary Free Text/Dictation pt has large BM with blood clots today AM, BP stable, c/o pain Exam/Review of Systems Vital Signs Vitals Vital Signs Date Time Temp Pulse Resp B/P Pulse Ox O2 Delivery O2 Flow Rate FiO2 07/28/16 08:07 97.8 98 18 101/63 96 07/25/16 11:46 Room Air 07/25/16 10:55 8.0 Intake and Output 07/27/16 07/27/16 07/28/16 15:00 23:00 07:00 Intake Total 1910 ml 1200 ml Output Total 1150 ml 200 ml Balance 760 ml 1000 ml Exam Constitutional: alert, oriented Respiratory: clear to auscultation Cardiovascular: regular rate and rhythm Gastrointestinal: soft, No distended, + CHETAN drain in place Musculoskeletal: nl extremities to inspection Results Result Diagram: 07/28/16 0517 07/28/16 0655 Results 24 hrs Laboratory Tests Test 07/28/16 05:17 07/28/16 06:55 White Blood Count 17.5 H Red Blood Count 2.91 #L Hemoglobin 9.2 #L Hematocrit 27.3 #L Mean Corpuscular Volume 93.8 Mean Corpuscular Hemoglobin 31.6 Mean Corpuscular Hemoglobin Concent 33.7 Red Cell Distribution Width 12.6 Platelet Count 303 Mean Platelet Volume 9.4 Neutrophils % 88.5 H Lymphocytes % 3.9 L Monocytes % 6.6 Eosinophils % 0.2 Basophils % 0.1 Nucleated Red Blood Cells % 0.0 Neutrophils # 15.5 H Lymphocytes # 0.7 L Monocytes # 1.2 H Eosinophils # 0.0 Basophils # 0.0 Nucleated Red Blood Cells # 0.0 Prothrombin Time 17.8 #H Prothrombin Time Ratio 1.4 INR International Normalized Ratio 1.46 Activated Partial Thromboplast Time 34.9 Sodium Level 132 L Potassium Level 3.5 Chloride Level 98 Carbon Dioxide Level 28 Anion Gap 10 Blood Urea Nitrogen 11 Creatinine 0.51 Glucose Level 128 Calcium Level 7.6 L Medications Medications Current Medications Dextrose/Sodium Chloride (D5-1/2ns) 1,000 ml @ 70 mls/hr [id number] IV Last administered on 07/28/16 05:14; Admin Dose 70 MLS/HR; Start 07/24/16 at 19:23 Acetaminophen (Tylenol Tab) 650 mg Q6H PRN PO PAIN LEVEL 1-3 OR FEVER; Start at 19:30 Acetaminophen/ Hydrocodone Bitart ([place] (5/325)) 1 tab Q6H PRN PO MODERATE PAIN LEVEL 4-6; Start 07/24/16 at 19:30 Morphine Sulfate 2 mg 2 mg Q4H PRN IV SEVERE PAIN LEVEL 7-10 Last administered on 07/26/16 05:33; Admin Dose 2 MG; Start 07/24/16 at 19:30 Piperacillin Sod/ Tazobactam Sod (Zosyn 3.375gm/ 100 ml (Pmx)) 100 ml @ 200 mls /hr Q8 IVPB Last administered on 07/28/16 05:12; Admin Dose 200 MLS/HR; Start 07/24/16 at 22:00 Oxycodone/ Acetaminophen (Percocet (5/ 325)) 1 tab Q4H PRN PO MILD PAIN (1-3) Last administered on 07/28/16 01:27; Admin Dose 1 TAB; Start 07/25/16 at 11:00 Oxycodone/ Acetaminophen (Percocet (5/ 325)) 2 tab Q4H PRN PO MODERATE PAIN (4- 6) Last administered on 07/27/16 19:03; Admin Dose 2 TAB; Start 07/25/16 at 11: 00 Diphenhydramine HCl (Benadryl) 25 mg Q6H PRN PO ITCHING Last administered on 04:24; Admin Dose 25 MG; Start 07/25/16 at 22:00 Ondansetron HCl (Zofran Inj) 4 mg Q4H PRN IV NAUSEA AND/OR VOMITING; Start at 11:30 ALEX SANCHEZ MD Jul 28, 2016 10:34
[2016-07-28 17:42] LABS: MAGNESIUM 1.7 mg/dl (1.7-2.5); PHOSPHORUS 3.3 mg/dl (2.5-4.9)
[2016-07-28] MEDS ORDERED: PEG/ELECTROLYTES 4L BTL PO ONE (19:00)
[2016-07-28 19:23] LABS: ADD SCAN DIFF NO
[2016-07-28 19:26] LABS: BASOPHILS % 0.1 % (0.0-2.0); EOSINOPHILS # 0.1 10^3/ul (0.0-0.5); EOSINOPHILS % 0.9 % (0.0-7.0); HEMATOCRIT 24.3 % (37.0-47.0); HEMOGLOBIN 8.3 g/dl (12.0-16.0); LYMPHOCYTES % 6.7 % (15.0-51.0); MEAN CORPUSCULAR HEMOGLOBIN 31.7 pg (29.0-33.0); MEAN CORPUSCULAR HGB CONC 34.2 g/dl (32.0-37.0); MEAN CORPUSCULAR VOLUME 92.7 fl (82.0-101.0); MEAN PLATELET VOLUME 8.8 fl (7.4-10.4); MONOCYTE # 1.1 10^3/ul (0.3-0.9); MONOCYTES % 7.5 % (0.0-11.0); NEUTROPHIL # 12.1 10^3/ul (1.6-7.5); PLATELET COUNT 306 10^3/UL (140-415); RED BLOOD COUNT 2.62 10^6/ul (4.20-5.40); RED CELL DISTRIBUTION WIDTH 12.5 % (11.5-14.5); WHITE BLOOD COUNT 14.4 10^3/ul (4.8-10.8)
--- NOTE | 2016-07-28 20:07 | PN ---
Date/Time of Note Date/Time of Note DATE: 07/28/16 TIME: 20:00 Assessment/Plan Lines/Catheters IV Catheter Type (from [facility]): Peripheral IV Assessment/Plan Chief Complaint/Hosp Course Coverage for Dr. Booth: 1. GIB, ? etiology, ? location -ppi -gi consult for EGD and colonoscopy -tx prn -supportive measures 2. Transaminitis 2nd acute surgery and inflammation. Improved -monitor 3. Leukocytosis, ? 2nd bleeding vs other -abx -drain -monitor -oob/ambulate -IS -monitor -as above 4. Hypoalbuminemia -eventual diet optimization 5. Hypokalemia corrected 6. Hyponatremia -correct with fluid management 7. HTN -nut and med optimization 8. Hyperlipidemia -nut and med optimization 9. Paralytic ileus. Improved Thank you, Problems: Subjective 24 Hr Interval Summary No f/c/n/v. Abdominal pain improved. Having large amounts of clots per rectum with hypotension and drop in Hg. No cough/sz/rash/mohan/dizzy/visual or neuro changes. No dysuria. Leukocytosis. CHETAN output with dark blood. Exam/Review of Systems Vital Signs Vitals Vital Signs Date Time Temp Pulse Resp B/P Pulse Ox O2 Delivery O2 Flow Rate FiO2 07/28/16 08:07 97.8 98 18 101/63 96 07/25/16 11:46 Room Air 07/25/16 10:55 8.0 Intake and Output 07/27/16 07/27/16 07/28/16 15:00 23:00 07:00 Intake Total 1910 ml 1200 ml Output Total 1150 ml 200 ml Balance 760 ml 1000 ml Exam Free Text/Dictation Constitutional: alert, oriented, No distress Psych: nl mood/affect, No anxiety Head: atraumatic, normocephalic Eyes: EOMI, PERRL, nl conjunctiva, No icteric ENMT: mucosa pink and moist, nl external ears & nose, nl lips & teeth Neck: non-tender, supple, No jvd Respiratory: normal air movement, No congested cough, No labored breathing Cardiovascular: regular rate and rhythm, No edema Gastrointestinal: other (CHETAN with min dark blood), soft, tender (min), No distended, No rebound or guarding Musculoskeletal: nl extremities to inspection, No joint tenderness Extremities: normal pulses, No calf tenderness, No cyanosis Neurological: nl mental status, nl speech, nl strength Skin: nl turgor, No diaphoresis, No rash or lesions Lymph: nl lymph nodes Results Result Diagram: 07/28/16 1918 07/28/16 0655 ANNA MARIE DARLING MD Jul 28, 2016 20:06
[2016-07-29] VITALS (7 sets, daily range): BP systolic 95–143; BP diastolic 47–67; PULSE 76–84; RESP 14–18
[2016-07-29 04:56] LABS: ADD SCAN DIFF NO
[2016-07-29 05:31] LABS: CALCIUM 7.9 mg/dl (8.4-10.2); CREATININE 0.53 mg/dl (0.44-1.00); POTASSIUM 3.2 mmol/L (3.5-5.1)
[2016-07-29 05:38] LABS: INR 1.17; PARTIAL THROMBOPLASTIN TIME 34.4 Sec (25.0-35.0); PT RATIO 1.2
[2016-07-29 05:39] LABS: BASOPHILS % 0.2 % (0.0-2.0); EOSINOPHILS # 0.2 10^3/ul (0.0-0.5); EOSINOPHILS % 1.9 % (0.0-7.0); HEMATOCRIT 25.6 % (37.0-47.0); HEMOGLOBIN 8.4 g/dl (12.0-16.0); LYMPHOCYTES # 0.9 10^3/ul (0.8-2.9); MEAN CORPUSCULAR HEMOGLOBIN 30.9 pg (29.0-33.0); MEAN CORPUSCULAR HGB CONC 32.8 g/dl (32.0-37.0); MEAN CORPUSCULAR VOLUME 94.1 fl (82.0-101.0); MEAN PLATELET VOLUME 9.1 fl (7.4-10.4); MONOCYTES % 9.3 % (0.0-11.0); NEUTROPHIL # 8.8 10^3/ul (1.6-7.5); NEUTROPHILS % 79.9 % (39.0-77.0); PLATELET COUNT 352 10^3/UL (140-415); RED BLOOD COUNT 2.72 10^6/ul (4.20-5.40); RED CELL DISTRIBUTION WIDTH 12.7 % (11.5-14.5)
[2016-07-29] MEDS: PIPER-TAZO 3.375 GM IV (PMX) 100 ML IVPB SCH ×3 (07:03→20:17)
[2016-07-29] MEDS ORDERED: LIDOCAINE 2% (SDV) 5 ML INJ ONE (10:58)
[2016-07-29] MEDS ORDERED: PROPOFOL 60 ML ONE (10:58)
--- NOTE | 2016-07-29 11:02 | CONS ---
DATE OF ADMISSION: 07/24/2016 DATE OF CONSULTATION: 07/29/2016 REFERRING PHYSICIAN: Alex Sanchez MD Dear Dr. Sanchez: Thank you for allowing me to participate in taking care of your patient who is a pleasant 80-year-ol d female with a history of hypertension, comes to the ER complaining of pain in the right upper quad rant. Patient had an ultrasound which showed acute cholecystitis, also had a CAT scan of abdomen an d pelvis which showed pneumoperitoneum from the possible rupture of the gallbladder. So patient was operated, had a cholecystectomy and CHETAN drain was placed. However, yesterday she was passing clots per rectum. It was dark in color, not ____ blood, so GI consult was called in. No chest pain, no s hortness of breath, no or GERIATRIC PSYCHIATRIST problem. PAST MEDICAL HISTORY: Hypertension. SOCIAL HISTORY: Does not smoke or drink. ALLERGIES: None. REVIEW OF SYSTEMS: Negative. PHYSICAL EXAMINATION: GENERAL: Alert, awake, not in distress. VITAL SIGNS: Stable. HEENT: Unremarkable. NECK: Supple, no thyromegaly, no lymphadenopathy. CARDIOVASCULAR: No murmur, gallop or click. LUNGS: Clear. ABDOMEN: Benign. EXTREMITIES: No edema. CENTRAL NERVOUS SYSTEM: Grossly within normal limit. IMPRESSION: 1. Acute cholecystitis status post cholecystectomy. 2. Rectal bleeding. 3. Hypertension. 4. Anemia. 5. Distended bladder, urinary bladder outlet obstruction. PLAN: I told the staff to immediately pass the Delgadillo catheter to decompress it. We will proceed w ith EGD and colonoscopy to find out the source of bleeding. In the interim, continue present care. Dictated By: MEL FERRER MD PJ/NTS Conf#: [id number] DID#: [id number] CC: MEL FERRER MD; ALEX SANCHEZ MD;*EndCC*
--- NOTE | 2016-07-29 11:03 | PN ---
Date/Time of Note Date/Time of Note DATE: 07/29/16 TIME: 11:01 Assessment/Plan VTE Prophylaxis VTE Prophylaxis Intervention: SCD's Lines/Catheters IV Catheter Type (from Nrsg): Peripheral IV Urinary Cath still in place: Yes Reason Cath still needed: urinary retention Assessment/Plan Assessment/Plan 1. Acute cholecystitis status post lap james with drain placement, WBC 14.9 on IV abx zosyn Pain control, 2. History of hypertension- Blood pressure is currently stable without any meds 3. Prophylaxis: SCDs. 4. BRBPR- s/p GI consult, plan for EGD + colonoscopy 5. acute Urinary retention s/p Martinez catheter placement IVF D51/2 NS- continue it SCD for DVT Prophylaxis Subjective 24 Hr Interval Summary Free Text/Dictation had a urinary retention, required martinez, S/p GI consult, plan for EGD + colonoscopy Exam/Review of Systems Vital Signs Vitals Vital Signs Date Time Temp Pulse Resp B/P Pulse Ox O2 Delivery O2 Flow Rate FiO2 07/29/16 08:08 98.2 81 16 95/47 97 07/25/16 11:46 Room Air 07/25/16 10:55 8.0 Intake and Output 07/28/16 07/28/16 07/29/16 15:00 23:00 07:00 Intake Total 1020 ml 3070 ml Balance 1020 ml 3070 ml Exam Constitutional: alert, oriented Respiratory: clear to auscultation Cardiovascular: regular rate and rhythm Gastrointestinal: soft, No distended, + CHETAN drain in place , + martinez catheter Musculoskeletal: nl extremities to inspection Results Result Diagram: 07/29/16 0415 07/29/16 0415 Results 24 hrs Laboratory Tests Test 07/28/16 19:18 07/29/16 04:15 White Blood Count 14.4 H 11.0 #H Red Blood Count 2.62 L 2.72 L Hemoglobin 8.3 L 8.4 L Hematocrit 24.3 L 25.6 L Mean Corpuscular Volume 92.7 94.1 Mean Corpuscular Hemoglobin 31.7 30.9 Mean Corpuscular Hemoglobin Concent 34.2 32.8 Red Cell Distribution Width 12.5 12.7 Platelet Count 306 352 Mean Platelet Volume 8.8 9.1 Neutrophils % 84.0 H 79.9 H Lymphocytes % 6.7 L 8.0 L Monocytes % 7.5 9.3 Eosinophils % 0.9 1.9 Basophils % 0.1 0.2 Nucleated Red Blood Cells % 0.0 0.0 Neutrophils # 12.1 H 8.8 H Lymphocytes # 1.0 0.9 Monocytes # 1.1 H 1.0 H Eosinophils # 0.1 0.2 Basophils # 0.0 0.0 Nucleated Red Blood Cells # 0.0 0.0 Prothrombin Time 15.0 H Prothrombin Time Ratio 1.2 INR International Normalized Ratio 1.17 Activated Partial Thromboplast Time 34.4 Sodium Level 135 Potassium Level 3.2 L Chloride Level 99 Carbon Dioxide Level 30 Anion Gap 9 Blood Urea Nitrogen 6 L Creatinine 0.53 Glucose Level 111 Calcium Level 7.9 L Magnesium Level 1.8 Medications Medications Current Medications Dextrose/Sodium Chloride (D5-1/2ns) 1,000 ml @ 70 mls/hr [id number] IV Last administered on 07/28/16 18:30; Admin Dose 70 MLS/HR; Start 07/24/16 at 19:23 Acetaminophen (Tylenol Tab) 650 mg Q6H PRN PO PAIN LEVEL 1-3 OR FEVER; Start at 19:30 Acetaminophen/ Hydrocodone Bitart ([place] (5/325)) 1 tab Q6H PRN PO MODERATE PAIN LEVEL 4-6; Start 07/24/16 at 19:30 Morphine Sulfate 2 mg 2 mg Q4H PRN IV SEVERE PAIN LEVEL 7-10 Last administered on 07/26/16 05:33; Admin Dose 2 MG; Start 07/24/16 at 19:30 Piperacillin Sod/ Tazobactam Sod (Zosyn 3.375gm/ 100 ml (Pmx)) 100 ml @ 200 mls /hr Q8 IVPB Last administered on 07/29/16 07:03; Admin Dose 200 MLS/HR; Start 07/24/16 at 22:00 Oxycodone/ Acetaminophen (Percocet (5/ 325)) 1 tab Q4H PRN PO MILD PAIN (1-3) Last administered on 07/28/16 16:31; Admin Dose 1 TAB; Start 07/25/16 at 11:00 Oxycodone/ Acetaminophen (Percocet (5/ 325)) 2 tab Q4H PRN PO MODERATE PAIN (4- 6) Last administered on 07/27/16 19:03; Admin Dose 2 TAB; Start 07/25/16 at 11: 00 Diphenhydramine HCl (Benadryl) 25 mg Q6H PRN PO ITCHING Last administered on 04:24; Admin Dose 25 MG; Start 07/25/16 at 22:00 Ondansetron HCl (Zofran Inj) 4 mg Q4H PRN IV NAUSEA AND/OR VOMITING Last administered on 07/28/16 16:31; Admin Dose 4 MG; Start 07/26/16 at 11:30 ALEX SANCHEZ MD Jul 29, 2016 11:03
--- NOTE | 2016-07-29 12:37 | PN ---
DATE: 07/29/2016 The events over the weekend are noted. The patient is currently not in the room and is down in GI l ab getting an upper and lower GI endoscopy. Further recommendations to follow after completion of h er endoscopy. Dictated By: RAMON RAMOS MD AR/NTS Conf#: [id number] DID#: [id number]
[2016-07-29] MEDS ORDERED: FENTAnyl 25 MCG IV PRN (13:00)
[2016-07-29] MEDS ORDERED: EPHEDRINE SULFATE 5 MG IV PRN (13:00)
[2016-07-29] MEDS ORDERED: LABETALOL 5 MG IV PRN (13:00)
[2016-07-29] MEDS ORDERED: ONDANSETRON 4 MG INJ IV PRN (13:00)
[2016-07-29] MEDS: SUCRALFATE (100 MG/ML) 10ML CUP PO SCH ×3 (13:00→20:17)
--- NOTE | 2016-07-29 13:59 | GILP ---
DATE OF PROCEDURE: PROCEDURE: 1. Esophagogastroduodenoscopy with biopsy. 2. Colonoscopy. SURGEON: Mel Ferrer MD INDICATION: An 80-year-old female undergoing this procedure for GI bleeding manifested in the form of passing dark clots per rectum. The purpose is evaluate both upper GI and lower GI tract and find out the source of bleeding. INFORMED CONSENT: The risk of the procedure, related and unrelated complications, anesthetic risks, alternatives discussed. Informed consent was obtained. DESCRIPTION OF PROCEDURE: The patient was brought to the GI lab, sedated by Dr. Horvath. After optimu m sedation, scope was passed with much ease into the esophagus. She had a very defined ulcer near t he GE junction. Two, 3 such ulcers were identified. Stomach mucosa revealed gastritis. Pyloric ch delfino was edematous, inflamed, opening was barely visible. Managed to pass through that and immedia tely upon entering into the duodenum, the scope tip was right in what appeared to be a diverticulum covered with old blood. Immediately removed it, cleaned thoroughly with water and again the same ol d blood was seen. No vessel was identified. We did not know what it was. Finally, found the batsheva n of this diverticulum, which was ulcerated, so definitely this was a giant duodenal ulcer covered w ith old blood clots. There was another ulcer while entering into the second part, but no attempt wa s made to go into second part because of the fear of creating perforation of this giant duodenal ulc er. Scope was then removed. Multiple biopsies were obtained from the body of the stomach to rule o ut H. pylori infection. Retroversion was normal. Scope was straightened out and removed with good patient tolerance. IMPRESSION 1. 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 The size of the ulc er was that a quarter. 2. Edematous pyloric channel and narrowed lumen secondary to edema. 3. Esophageal ulceration. PLAN: Is to double the dose of PPI. No aspirin, no NSAIDs. COLONOSCOPY: The patient was turned around, scope was passed with much ease into rectum, advanced t hrough sigmoid, descending, transverse colon all the way into cecum. Appendiceal orifice and IC ranjan ve identified. While coming out, mucosa thoroughly inspected. Multiple diverticula seen. None of them were bleeding. It was a normal colon. No altered blood was seen. There was a polyp about 1.5 cm in diameter, appeared to be flat in the sigmoid colon. No attempt was made to take out the poly p. At this point, scope was removed with good patient tolerance. IMPRESSION: 1. A 1.5 cm polyp in the sigmoid colon, needs to be removed after a few months to year. 2. Diverticulosis mainly on the left side of the colon. 3. Negative all the way into cecum. 4. No evidence of bleeding or altered blood. PLAN: Continue present care. Continue PPI. This polyp needs to be removed after 1 year. Dictated By: MEL FERRER MD PJ/NTS Conf#: [id number] DID#: [id number] CC: MEL FERRER MD; ALEX SANCHEZ MD;*End*
[2016-07-29] MEDS: PANTOPRAZOLE 40 MG INJ IV SCH (17:04)
[2016-07-29] MEDS: DEXTROSE 5%-0.45% NACL 1,000 ML IV SCH (22:22)
[2016-07-30 04:46] LABS: ADD SCAN DIFF NO
[2016-07-30 05:06] LABS: INR 1.09; PROTIME 14.1 Sec (12.2-14.2); PT RATIO 1.1
[2016-07-30 05:09] LABS: CALCIUM 7.6 mg/dl (8.4-10.2); CREATININE 0.5 mg/dl (0.44-1.00)
[2016-07-30 05:20] LABS: BASOPHILS % 0.3 % (0.0-2.0); EOSINOPHILS # 0.3 10^3/ul (0.0-0.5); EOSINOPHILS % 3.3 % (0.0-7.0); HEMATOCRIT 23.3 % (37.0-47.0); HEMOGLOBIN 7.8 g/dl (12.0-16.0); LYMPHOCYTES % 13.1 % (15.0-51.0); MEAN CORPUSCULAR HEMOGLOBIN 31.3 pg (29.0-33.0); MEAN CORPUSCULAR HGB CONC 33.5 g/dl (32.0-37.0); MEAN CORPUSCULAR VOLUME 93.6 fl (82.0-101.0); MEAN PLATELET VOLUME 10.1 fl (7.4-10.4); MONOCYTE # 0.8 10^3/ul (0.3-0.9); MONOCYTES % 10.1 % (0.0-11.0); NEUTROPHIL # 5.7 10^3/ul (1.6-7.5); NEUTROPHILS % 72.8 % (39.0-77.0); PLATELET COUNT 317 10^3/UL (140-415); RED BLOOD COUNT 2.49 10^6/ul (4.20-5.40); RED CELL DISTRIBUTION WIDTH 12.6 % (11.5-14.5); WHITE BLOOD COUNT 7.9 10^3/ul (4.8-10.8)
[2016-07-30] MEDS: DEXTROSE 5%-0.45% NACL 1,000 ML IV SCH ×2 (05:20→23:45)
[2016-07-30] MEDS: PIPER-TAZO 3.375 GM IV (PMX) 100 ML IVPB SCH ×3 (05:21→22:33)
[2016-07-30] MEDS: PANTOPRAZOLE 40 MG INJ IV SCH ×2 (05:22→18:32)
[2016-07-30] MEDS: OXYCODONE/ACETAMINOPHEN (5/325) TAB PO PRN (05:24)
[2016-07-30 08:05] VITALS: BP 127/68; RESP 18
[2016-07-30] MEDS: SUCRALFATE (100 MG/ML) 10ML CUP PO SCH ×4 (08:53→20:40)
--- NOTE | 2016-07-30 13:15 | PN ---
Date/Time of Note Date/Time of Note DATE: 07/30/16 TIME: 13:10 Assessment/Plan VTE Prophylaxis VTE Prophylaxis Intervention: SCD's Lines/Catheters IV C[facility]ter Type (from [facility] Peripheral IV Urinary Cath still in place: Yes Reason Cath still needed: urinary retention Assessment/Plan Assessment/Plan 1. Acute cholecystitis status post lap james with drain placement, WBC 14.9 on IV abx zosyn 2. History of hypertension- Blood pressure is currently stable without any meds 4. BRBPR- s/p GI consult, S/p EGD showed Giant duodenal ulcer covered with an old thin layer of black-colored clots. The size of the ulcer was that a quarter. Edematous pyloric channel and narrowed lumen secondary to edema.Esophageal ulceration. Colonoscopy showed 1.5 cm polyp in the sigmoid colon, needs to be removed after a few months to year.Diverticulosis mainly on the left side of the colon.Negative all the way into cecum. No evidence of bleeding or altered blood. no more bleeding today 5. acute Urinary retention s/p Martinez catheter placement IVF D51/2 NS- continue it SCD for DVT Prophylaxis SNF placement Subjective 24 Hr Interval Summary Free Text/Dictation still has CHETAN draink, tolerating po diet, pt has EGD that showed giant duodenal ulcer with bleeding clots, which could be source of bleeding , Colonoscopy showed sigmoid polyp but no evidence of bleeding Exam/Review of Systems Vital Signs Vitals Vital Signs Date Time Temp Pulse Resp B/P Pulse Ox O2 Delivery O2 Flow Rate FiO2 07/30/16 08:05 97.9 81 18 127/68 97 07/29/16 11:53 Nasal Cannula 2.0 Intake and Output 07/29/16 07/29/16 07/30/16 15:00 23:00 07:00 Intake Total 200 ml 800 ml 1450 ml Output Total 30 ml 2700 ml 1900 ml Balance 170 ml -1900 ml -450 ml Exam Constitutional: alert, oriented Respiratory: clear to auscultation Cardiovascular: regular rate and rhythm Gastrointestinal: soft, No distended,, + martinez catheter Musculoskeletal: nl extremities to inspection Results Result Diagram: 07/30/16 0415 07/30/16 0415 Results 24 hrs Laboratory Tests Test 07/30/16 04:15 White Blood Count 7.9 # Red Blood Count 2.49 L Hemoglobin 7.8 L Hematocrit 23.3 L Mean Corpuscular Volume 93.6 Mean Corpuscular Hemoglobin 31.3 Mean Corpuscular Hemoglobin Concent 33.5 Red Cell Distribution Width 12.6 Platelet Count 317 Mean Platelet Volume 10.1 Neutrophils % 72.8 Lymphocytes % 13.1 L Monocytes % 10.1 Eosinophils % 3.3 Basophils % 0.3 Nucleated Red Blood Cells % 0.0 Neutrophils # 5.7 Lymphocytes # 1.0 Monocytes # 0.8 Eosinophils # 0.3 Basophils # 0.0 Nucleated Red Blood Cells # 0.0 Prothrombin Time 14.1 Prothrombin Time Ratio 1.1 INR International Normalized Ratio 1.09 Activated Partial Thromboplast Time 22.0 L Sodium Level 134 L Potassium Level 3.0 L Chloride Level 103 Carbon Dioxide Level 29 Anion Gap 5 L Blood Urea Nitrogen 4 L Creatinine 0.50 Glucose Level 105 Calcium Level 7.6 L Medications Medications Current Medications Dextrose/Sodium Chloride (D5-1/2ns) 1,000 ml @ 70 mls/hr [id number] IV Last administered on 07/30/16 05:20; Admin Dose 70 MLS/HR; Start 07/24/16 at 19:23 Acetaminophen (Tylenol Tab) 650 mg Q6H PRN PO PAIN LEVEL 1-3 OR FEVER; Start at 19:30 Acetaminophen/ Hydrocodone Bitart ([place] (5/325)) 1 tab Q6H PRN PO MODERATE PAIN LEVEL 4-6; Start 07/24/16 at 19:30 Morphine Sulfate 2 mg 2 mg Q4H PRN IV SEVERE PAIN LEVEL 7-10 Last administered on 07/26/16 05:33; Admin Dose 2 MG; Start 07/24/16 at 19:30 Piperacillin Sod/ Tazobactam Sod (Zosyn 3.375gm/ 100 ml (Pmx)) 100 ml @ 200 mls /hr Q8 IVPB Last administered on 07/30/16 05:21; Admin Dose 200 MLS/HR; Start 07/24/16 at 22:00 Oxycodone/ Acetaminophen (Percocet (5/ 325)) 1 tab Q4H PRN PO MILD PAIN (1-3) Last administered on 07/30/16 05:24; Admin Dose 1 TAB; Start 07/25/16 at 11:00 Oxycodone/ Acetaminophen (Percocet (5/ 325)) 2 tab Q4H PRN PO MODERATE PAIN (4- 6) Last administered on 07/27/16 19:03; Admin Dose 2 TAB; Start 07/25/16 at 11: 00 Diphenhydramine HCl (Benadryl) 25 mg Q6H PRN PO ITCHING Last administered on 04:24; Admin Dose 25 MG; Start 07/25/16 at 22:00 Ondansetron HCl (Zofran Inj) 4 mg Q4H PRN IV NAUSEA AND/OR VOMITING Last administered on 07/28/16 16:31; Admin Dose 4 MG; Start 07/26/16 at 11:30 Pantoprazole (Protonix Iv) 40 mg BID@,18 IV Last administered on 07/30/16 05 :22; Admin Dose 40 MG; Start 07/29/16 at 18:00 Sucralfate (Carafate Susp) 1 gm QID PO Last administered on 07/30/16 12:41; Admin Dose 1 GM; Start 07/29/16 at 13:00 ALEX SANCHEZ MD Jul 30, 2016 13:15
[2016-07-30] MEDS ORDERED: POTASSIUM CHLORIDE 20 MEQ in SOD CHLORIDE 0.9% 100 ML IVPB ONE (17:30)
--- NOTE | 2016-07-30 17:58 | CONS ---
Date/Time of Note Date/Time of Note DATE: 07/30/16 TIME: 17:57 Assessment/Plan Assessment/Plan Additional Assessment/Plan IMPRESSION: 1. Acute cholecystitis status post cholecystectomy. 2. Rectal bleeding. From giant duodenal ulcer 3. Hypertension. 4. Anemia. 5. Distended bladder, urinary bladder outlet obstruction. Plan PPI twice daily for at least 8 week Monitor H&H periodically Refrain from aspirin and NSAID CHETAN drain to be removed by the surgeon Consultation Date/Type/Reason Admit Date/Time Jul 24, 2016 at 19:04 Initial Consult Date 24 HR Interval Summary Constitutional: improved, no complaints Exam/Review of Systems Vital Signs Vitals Vital Signs Date Time Temp Pulse Resp B/P Pulse Ox O2 Delivery O2 Flow Rate FiO2 07/30/16 08:05 97.9 81 18 127/68 97 07/29/16 11:53 Nasal Cannula 2.0 Intake and Output 07/29/16 07/29/16 07/30/16 15:00 23:00 07:00 Intake Total 200 ml 800 ml 1450 ml Output Total 30 ml 2700 ml 1900 ml Balance 170 ml -1900 ml -450 ml Exam Constitutional: alert, oriented, well developed Psych: nl mood/affect, no complaints Head: atraumatic, normocephalic Eyes: EOMI, PERRL, nl conjunctiva, nl lids, nl sclera ENMT: nl external ears & nose, nl lips & teeth, nl nasal mucosa & septum Neck: non-tender, supple Respiratory: clear to auscultation, normal air movement Cardiovascular: nl pulses, regular rate and rhythm Gastrointestinal: nl liver, spleen, non-tender, soft Musculoskeletal: nl extremities to inspection, nl gait and stance Extremities: normal pulses Neurological: COMPUTER TYPESETTER KEYLINER II-XII intact, nl mental status, nl speech, nl strength Skin: nl turgor, No rash or lesions Lymph: nl lymph nodes Results Result Diagram: 07/30/16 0415 07/30/16 0415 Results 24 hrs Laboratory Tests Test 07/30/16 04:15 White Blood Count 7.9 # Red Blood Count 2.49 L Hemoglobin 7.8 L Hematocrit 23.3 L Mean Corpuscular Volume 93.6 Mean Corpuscular Hemoglobin 31.3 Mean Corpuscular Hemoglobin Concent 33.5 Red Cell Distribution Width 12.6 Platelet Count 317 Mean Platelet Volume 10.1 Neutrophils % 72.8 Lymphocytes % 13.1 L Monocytes % 10.1 Eosinophils % 3.3 Basophils % 0.3 Nucleated Red Blood Cells % 0.0 Neutrophils # 5.7 Lymphocytes # 1.0 Monocytes # 0.8 Eosinophils # 0.3 Basophils # 0.0 Nucleated Red Blood Cells # 0.0 Prothrombin Time 14.1 Prothrombin Time Ratio 1.1 INR International Normalized Ratio 1.09 Activated Partial Thromboplast Time 22.0 L Sodium Level 134 L Potassium Level 3.0 L Chloride Level 103 Carbon Dioxide Level 29 Anion Gap 5 L Blood Urea Nitrogen 4 L Creatinine 0.50 Glucose Level 105 Calcium Level 7.6 L Medications Medications Current Medications Dextrose/Sodium Chloride (D5-1/2ns) 1,000 ml @ 70 mls/hr [id number] IV Last administered on 07/30/16 05:20; Admin Dose 70 MLS/HR; Start 07/24/16 at 19:23 Acetaminophen (Tylenol Tab) 650 mg Q6H PRN PO PAIN LEVEL 1-3 OR FEVER; Start at 19:30 Acetaminophen/ Hydrocodone Bitart ([place] (5/325)) 1 tab Q6H PRN PO MODERATE PAIN LEVEL 4-6; Start 07/24/16 at 19:30 Morphine Sulfate 2 mg 2 mg Q4H PRN IV SEVERE PAIN LEVEL 7-10 Last administered on 07/26/16 05:33; Admin Dose 2 MG; Start 07/24/16 at 19:30 Piperacillin Sod/ Tazobactam Sod (Zosyn 3.375gm/ 100 ml (Pmx)) 100 ml @ 200 mls /hr Q8 IVPB Last administered on 07/30/16 14:53; Admin Dose 200 MLS/HR; Start 07/24/16 at 22:00 Oxycodone/ Acetaminophen (Percocet (5/ 325)) 1 tab Q4H PRN PO MILD PAIN (1-3) Last administered on 07/30/16 05:24; Admin Dose 1 TAB; Start 07/25/16 at 11:00 Oxycodone/ Acetaminophen (Percocet (5/ 325)) 2 tab Q4H PRN PO MODERATE PAIN (4- 6) Last administered on 07/27/16 19:03; Admin Dose 2 TAB; Start 07/25/16 at 11: 00 Diphenhydramine HCl (Benadryl) 25 mg Q6H PRN PO ITCHING Last administered on 04:24; Admin Dose 25 MG; Start 07/25/16 at 22:00 Ondansetron HCl (Zofran Inj) 4 mg Q4H PRN IV NAUSEA AND/OR VOMITING Last administered on 07/28/16 16:31; Admin Dose 4 MG; Start 07/26/16 at 11:30 Pantoprazole (Protonix Iv) 40 mg BID@06,18 IV Last administered on 07/30/16 05 :22; Admin Dose 40 MG; Start 07/29/16 at 18:00 Sucralfate 1 gm 1 gm QID PO Last administered on 07/30/16 12:41; Admin Dose 1 GM; Start 07/29/16 at 13:00 Potassium Chloride/Sodium Chloride (KCl/NS) 110 ml @ 55 mls/hr ONCE ONCE IVPB ; Start 07/30/16 at 17:30; Stop 07/30/16 at 19:29 MEL FERRER MD Jul 30, 2016 17:58
--- NOTE | 2016-07-30 18:49 | PN ---
DATE: 07/30/2016 Postoperative day #5. The patient's hematocrit is 23 with a white count of 7900 with resolution of left shift. The patient feels clinically well, and her abdominal examination is benign. CHETAN drainag e is draining minimal serosanguineous fluid. EGD findings showed a giant duodenal ulcer yesterday c overed with clot. PLAN: I removed the CHETAN drain at the bedside today. The patient is clinically stable, should be abl e to be discharged tomorrow with outpatient followup. Dictated By: RAMON ULNA/CHIARA Conf#: [id number] DID#: [id number]
[2016-07-30 19:35] VITALS: BP 127/73; RESP 20
[2016-07-31 05:21] LABS: ADD SCAN DIFF NO
[2016-07-31] MEDS: PIPER-TAZO 3.375 GM IV (PMX) 100 ML IVPB SCH ×3 (05:34→21:16)
[2016-07-31] MEDS: PANTOPRAZOLE 40 MG INJ IV SCH ×2 (05:35→18:05)
[2016-07-31 05:36] LABS: BASOPHILS % 0.1 % (0.0-2.0); EOSINOPHILS # 0.2 10^3/ul (0.0-0.5); EOSINOPHILS % 2.5 % (0.0-7.0); HEMATOCRIT 24.9 % (37.0-47.0); HEMOGLOBIN 8.1 g/dl (12.0-16.0); LYMPHOCYTES # 0.9 10^3/ul (0.8-2.9); LYMPHOCYTES % 9.9 % (15.0-51.0); MEAN CORPUSCULAR HEMOGLOBIN 30.2 pg (29.0-33.0); MEAN CORPUSCULAR HGB CONC 32.5 g/dl (32.0-37.0); MEAN CORPUSCULAR VOLUME 92.9 fl (82.0-101.0); MONOCYTE # 0.8 10^3/ul (0.3-0.9); MONOCYTES % 9.7 % (0.0-11.0); NEUTROPHIL # 6.7 10^3/ul (1.6-7.5); NEUTROPHILS % 77.3 % (39.0-77.0); PLATELET COUNT 429 10^3/UL (140-415); RED BLOOD COUNT 2.68 10^6/ul (4.20-5.40); RED CELL DISTRIBUTION WIDTH 12.6 % (11.5-14.5); WHITE BLOOD COUNT 8.7 10^3/ul (4.8-10.8)
[2016-07-31 05:51] LABS: CREATININE 0.53 mg/dl (0.44-1.00)
[2016-07-31 05:52] LABS: CALCIUM 8.1 mg/dl (8.4-10.2)
[2016-07-31 05:56] LABS: POTASSIUM 2.7 mmol/L (3.5-5.1)
[2016-07-31] MEDS ORDERED: POTASSIUM CHLORIDE 250 ML IVPB ONE (07:00)
[2016-07-31 07:30] VITALS: BP 139/75; RESP 18
--- NOTE | 2016-07-31 07:53 | PN ---
DATE: Postoperative day #6. The patient remains afebrile throughout. Her abdominal examination is benign . The CHETAN was removed yesterday. The hematocrit is stable at 24.9. Of note is the fact that the po tassium today is down to 2.7. IMPRESSION: The patient is clinically stable. The patient can be discharged when medically cleared by the hospitalist. I will see the patient in 1 weeks' time for staple removal. Dictated By: RAMON LUNA/CHIARA Conf#: [id number] DID#: [id number]
[2016-07-31] MEDS: SUCRALFATE (100 MG/ML) 10ML CUP PO SCH ×4 (08:19→20:07)
--- NOTE | 2016-07-31 13:25 | PN ---
Date/Time of Note Date/Time of Note DATE: 07/31/16 TIME: 13:23 Assessment/Plan VTE Prophylaxis VTE Prophylaxis Intervention: SCD's Lines/Catheters IV Catheter Type (from Nrs): Peripheral IV Urinary Cath still in place: Yes Reason Cath still needed: other (indicate) (d/c martinez catheter ) Assessment/Plan Assessment/Plan 1. Acute cholecystitis status post lap james with drain placement, WBC 14.9 on IV abx zosyn - CHETAN drain removed 2. History of hypertension- Blood pressure is currently stable without any meds 4. BRBPR- s/p GI consult, S/p EGD showed Giant duodenal ulcer covered with an old thin layer of black-colored clots. The size of the ulcer was that a quarter. Edematous pyloric channel and narrowed lumen secondary to edema.Esophageal ulceration. Colonoscopy showed 1.5 cm polyp in the sigmoid colon, needs to be removed after a few months to year.Diverticulosis mainly on the left side of the colon.Negative all the way into cecum. No evidence of bleeding or altered blood. no more bleeding today 5. acute Urinary retention s/p Martinez catheter placement IVF D51/2 NS- continue it- add 20mEQ KCL to IVF KCL 40MEQ IV already replaced today AM SCD for DVT Prophylaxis SNF placement S/p PT consult, will recommned SNF placement Subjective 24 Hr Interval Summary Free Text/Dictation K 2.7, BP stabel, CHETAN drain removed Exam/Review of Systems Vital Signs Vitals Vital Signs Date Time Temp Pulse Resp B/P Pulse Ox O2 Delivery O2 Flow Rate FiO2 07/31/16 07:30 98.4 90 18 139/75 95 07/29/16 11:53 Nasal Cannula 2.0 Intake and Output 07/30/16 07/30/16 07/31/16 15:00 23:00 07:00 Intake Total 1670 ml 2065 ml Output Total 1700 ml 3000 ml Balance -30 ml -935 ml Exam Constitutional: alert, oriented Respiratory: clear to auscultation Cardiovascular: regular rate and rhythm Gastrointestinal: soft, No distended,, + martinez catheter Musculoskeletal: nl extremities to inspection Results Result Diagram: 07/31/16 0424 07/31/16 0424 Results 24 hrs Laboratory Tests Test 07/31/16 04:24 White Blood Count 8.7 Red Blood Count 2.68 L Hemoglobin 8.1 L Hematocrit 24.9 L Mean Corpuscular Volume 92.9 Mean Corpuscular Hemoglobin 30.2 Mean Corpuscular Hemoglobin Concent 32.5 Red Cell Distribution Width 12.6 Platelet Count 429 #H Mean Platelet Volume 9.0 Neutrophils % 77.3 H Lymphocytes % 9.9 L Monocytes % 9.7 Eosinophils % 2.5 Basophils % 0.1 Nucleated Red Blood Cells % 0.0 Neutrophils # 6.7 Lymphocytes # 0.9 Monocytes # 0.8 Eosinophils # 0.2 Basophils # 0.0 Nucleated Red Blood Cells # 0.0 Sodium Level 138 Potassium Level 2.7 *L Chloride Level 102 Carbon Dioxide Level 28 Anion Gap 11 Blood Urea Nitrogen 3 L Creatinine 0.53 Glucose Level 102 Calcium Level 8.1 L Medications Medications Current Medications Dextrose/Sodium Chloride (D5-1/2ns) 1,000 ml @ 70 mls/hr [id number] IV Last administered on 07/30/16 23:45; Admin Dose 70 MLS/HR; Start 07/24/16 at 19:23 Acetaminophen (Tylenol Tab) 650 mg Q6H PRN PO PAIN LEVEL 1-3 OR FEVER; Start at 19:30 Acetaminophen/ Hydrocodone Bitart ([place] (5/325)) 1 tab Q6H PRN PO MODERATE PAIN LEVEL 4-6; Start 07/24/16 at 19:30 Morphine Sulfate 2 mg 2 mg Q4H PRN IV SEVERE PAIN LEVEL 7-10 Last administered on 07/26/16 05:33; Admin Dose 2 MG; Start 07/24/16 at 19:30 Piperacillin Sod/ Tazobactam Sod (Zosyn 3.375gm/ 100 ml (Pmx)) 100 ml @ 200 mls /hr Q8 IVPB Last administered on 07/31/16 05:34; Admin Dose 200 MLS/HR; Start 07/24/16 at 22:00 Oxycodone/ Acetaminophen (Percocet (5/ 325)) 1 tab Q4H PRN PO MILD PAIN (1-3) Last administered on 07/30/16 05:24; Admin Dose 1 TAB; Start 07/25/16 at 11:00 Oxycodone/ Acetaminophen (Percocet (5/ 325)) 2 tab Q4H PRN PO MODERATE PAIN (4- 6) Last administered on 07/27/16 19:03; Admin Dose 2 TAB; Start 07/25/16 at 11: 00 Diphenhydramine HCl (Benadryl) 25 mg Q6H PRN PO ITCHING Last administered on 04:24; Admin Dose 25 MG; Start 07/25/16 at 22:00 Ondansetron HCl (Zofran Inj) 4 mg Q4H PRN IV NAUSEA AND/OR VOMITING Last administered on 07/28/16 16:31; Admin Dose 4 MG; Start 07/26/16 at 11:30 Pantoprazole (Protonix Iv) 40 mg BID@,18 IV Last administered on 07/31/16 05 :35; Admin Dose 40 MG; Start 07/29/16 at 18:00 Sucralfate (Carafate Susp) 1 gm QID PO Last administered on 07/31/16 08:19; Admin Dose 1 GM; Start 07/29/16 at 13:00 ALEX SANCHEZ MD Jul 31, 2016 13:25
--- NOTE | 2016-07-31 13:32 | PQ ---
Date/Time of Note Date/Time of Note DATE: 07/31/16 TIME: 13:09 Physician Query Documentation Clarification Dear Dr. Tabares, A review of the medical record found a need for documentation clarification. 80-year-old female undergoing this procedure for GI bleeding manifested in the form of passing dark clots per rectum IMPRESSION:1. Giant duodenal ulcer covered with an old thin layer of black- colored clots. The size of the ulcer was that a quarter. 3. Esophageal ulceration. Based on your medical judgment, can you further clarify which, if any, of the following the bleeding was most likely due to? Select all that apply: ( ) Acute duodenal ulcer with hemorrhage ( ) Acute duodenal ulcer without hemorrhage ( ) Ulcer of esophagus with bleeding ( ) Ulcer of esophagus without bleeding ( ) Others ( ) unable to determine Please provide your response by clicking edit document, making your choice ( x ), click ok/save and finally click sign. You may also document your response on your progress notes. Thank you for your time. Wyatt Eisenberg RN, BSN, CCS, CCDS Clinical E Commerce Developer Health Information Management, [employer] and Coding Services [phone] Room # 1525 - Coding [address]~ [address] WYATT EISENBERG Jul 31, 2016 13:31
[2016-07-31] MEDS: D5W-0.45 NACL + KCL 20 MEQ 1,000 ML IV SCH (13:34)
[2016-07-31] MEDS ORDERED: POTASSIUM CHLORIDE 20 MEQ in SOD CHLORIDE 0.9% 100 ML IVPB ONE (18:00)
--- NOTE | 2016-07-31 19:05 | CONS ---
Date/Time of Note Date/Time of Note DATE: 07/31/16 TIME: 19:04 Assessment/Plan Assessment/Plan Additional Assessment/Plan IMPRESSION: 1. Acute cholecystitis status post cholecystectomy. 2. Rectal bleeding. From giant duodenal ulcer bleeding has completely stopped 3. Hypertension. 4. Anemia. 5. Distended bladder, urinary bladder outlet obstruction. Plan PPI twice daily for at least 8 week Monitor H&H periodically Refrain from aspirin and NSAID CHETAN drain removed Follow-up in the office after few week Consultation Date/Type/Reason Admit Date/Time Jul 24, 2016 at 19:04 24 HR Interval Summary Constitutional: improved, no complaints Exam/Review of Systems Vital Signs Vitals Vital Signs Date Time Temp Pulse Resp B/P Pulse Ox O2 Delivery O2 Flow Rate FiO2 07/31/16 07:30 98.4 90 18 139/75 95 07/29/16 11:53 Nasal Cannula 2.0 Intake and Output 07/30/16 07/30/16 07/31/16 15:00 23:00 07:00 Intake Total 1670 ml 2065 ml Output Total 1700 ml 3000 ml Balance -30 ml -935 ml Exam Constitutional: alert, oriented, well developed Psych: nl mood/affect, no complaints Head: atraumatic, normocephalic Eyes: EOMI, PERRL, nl conjunctiva, nl lids, nl sclera ENMT: nl external ears & nose, nl lips & teeth, nl nasal mucosa & septum Neck: non-tender, supple Respiratory: clear to auscultation, normal air movement Cardiovascular: nl pulses, regular rate and rhythm Gastrointestinal: nl liver, spleen, non-tender, soft Musculoskeletal: nl extremities to inspection, nl gait and stance Extremities: normal pulses Neurological: HEALTH INFORMATION PROVIDER II-XII intact, nl mental status, nl speech, nl strength Skin: nl turgor, No rash or lesions Lymph: nl lymph nodes Results Result Diagram: 07/31/16 0424 07/31/16 1452 Results 24 hrs Laboratory Tests Test 07/31/16 04:24 07/31/16 14:52 White Blood Count 8.7 Red Blood Count 2.68 L Hemoglobin 8.1 L Hematocrit 24.9 L Mean Corpuscular Volume 92.9 Mean Corpuscular Hemoglobin 30.2 Mean Corpuscular Hemoglobin Concent 32.5 Red Cell Distribution Width 12.6 Platelet Count 429 #H Mean Platelet Volume 9.0 Neutrophils % 77.3 H Lymphocytes % 9.9 L Monocytes % 9.7 Eosinophils % 2.5 Basophils % 0.1 Nucleated Red Blood Cells % 0.0 Neutrophils # 6.7 Lymphocytes # 0.9 Monocytes # 0.8 Eosinophils # 0.2 Basophils # 0.0 Nucleated Red Blood Cells # 0.0 Sodium Level 138 Potassium Level 2.7 *L 3.3 L Chloride Level 102 Carbon Dioxide Level 28 Anion Gap 11 Blood Urea Nitrogen 3 L Creatinine 0.53 Glucose Level 102 Calcium Level 8.1 L Medications Medications Current Medications Acetaminophen (Tylenol Tab) 650 mg Q6H PRN PO PAIN LEVEL 1-3 OR FEVER; Start at 19:30 Acetaminophen/ Hydrocodone Bitart ([place] (5/325)) 1 tab Q6H PRN PO MODERATE PAIN LEVEL 4-6; Start 07/24/16 at 19:30 Morphine Sulfate 2 mg 2 mg Q4H PRN IV SEVERE PAIN LEVEL 7-10 Last administered on 07/26/16 05:33; Admin Dose 2 MG; Start 07/24/16 at 19:30 Piperacillin Sod/ Tazobactam Sod (Zosyn 3.375gm/ 100 ml (Pmx)) 100 ml @ 200 mls /hr Q8 IVPB Last administered on 07/31/16 13:34; Admin Dose 200 MLS/HR; Start 07/24/16 at 22:00 Oxycodone/ Acetaminophen (Percocet (5/ 325)) 1 tab Q4H PRN PO MILD PAIN (1-3) Last administered on 07/30/16 05:24; Admin Dose 1 TAB; Start 07/25/16 at 11:00 Oxycodone/ Acetaminophen (Percocet (5/ 325)) 2 tab Q4H PRN PO MODERATE PAIN (4- 6) Last administered on 07/27/16 19:03; Admin Dose 2 TAB; Start 07/25/16 at 11: 00 Diphenhydramine HCl (Benadryl) 25 mg Q6H PRN PO ITCHING Last administered on 04:24; Admin Dose 25 MG; Start 07/25/16 at 22:00 Ondansetron HCl (Zofran Inj) 4 mg Q4H PRN IV NAUSEA AND/OR VOMITING Last administered on 07/28/16 16:31; Admin Dose 4 MG; Start 07/26/16 at 11:30 Pantoprazole (Protonix Iv) 40 mg BID@06,18 IV Last administered on 07/31/16 18 :05; Admin Dose 40 MG; Start 07/29/16 at 18:00 Sucralfate 1 gm 1 gm QID PO Last administered on 07/31/16 18:05; Admin Dose 1 GM; Start 07/29/16 at 13:00 Potassium Chloride/Dextrose/ Sod Cl 1,000 ml @ 70 mls/hr [id number] IV Last administered on 07/31/16 13:34; Admin Dose 70 MLS/HR; Start 07/31/16 at 13:30 Potassium Chloride/Sodium Chloride (KCl/NS) 110 ml @ 55 mls/hr ONCE ONCE IVPB Last administered on 07/31/16 18:06; Admin Dose 55 MLS/HR; Start 07/31/16 at 18:00; Stop 07/31/16 at 19:59 MEL FERRER MD Jul 31, 2016 19:05
[2016-07-31 19:31] VITALS: BP 136/68; RESP 18
[2016-07-31] MEDS: ACETAMINOPHEN 325 MG TAB PO PRN (22:23)
[2016-08-01] MEDS: PANTOPRAZOLE 40 MG INJ IV SCH ×2 (05:21→17:41)
[2016-08-01] MEDS: PIPER-TAZO 3.375 GM IV (PMX) 100 ML IVPB SCH ×3 (05:21→22:05)
[2016-08-01] MEDS: D5W-0.45 NACL + KCL 20 MEQ 1,000 ML IV SCH ×2 (05:22→18:06)
[2016-08-01 07:15] VITALS: BP 160/85; PULSE 99; RESP 18
[2016-08-01 07:36] LABS: INR 1.02; PROTIME 13.4 Sec (12.2-14.2)
[2016-08-01 07:47] LABS: CALCIUM 8.6 mg/dl (8.4-10.2); CREATININE 0.52 mg/dl (0.44-1.00); POTASSIUM 3.8 mmol/L (3.5-5.1)
[2016-08-01 08:36] VITALS: BP 123/74; RESP 17
[2016-08-01] MEDS: SUCRALFATE (100 MG/ML) 10ML CUP PO SCH ×4 (09:00→21:08)
--- NOTE | 2016-08-01 12:13 | PN ---
Date/Time of Note Date/Time of Note DATE: 08/01/16 TIME: 12:10 Assessment/Plan VTE Prophylaxis VTE Prophylaxis Intervention: SCD's Lines/Catheters IV [facility]ter Type (from [facility]): Peripheral IV Urinary Cath still in place: Yes Reason Cath still needed: urinary retention Assessment/Plan Assessment/Plan 1. Acute cholecystitis status post lap james with drain placement, WBC 8.7 on IV abx zosyn - CHETAN drain removed 2. History of hypertension- Blood pressure is currently stable without any meds 4. BRBPR- s/p GI consult, S/p EGD showed Giant duodenal ulcer covered with an old thin layer of black-colored clots. The size of the ulcer was that a quarter. Edematous pyloric channel and narrowed lumen secondary to edema.Esophageal ulceration. Colonoscopy showed 1.5 cm polyp in the sigmoid colon, needs to be removed after a few months to year.Diverticulosis mainly on the left side of the colon.Negative all the way into cecum. No evidence of bleeding or altered blood. no more bleeding today 5. acute Urinary retention s/p Martinez catheter placement IVF D51/2 NS with 20mEQ KCL - plan is to d/c IVF tomorrow SCD for DVT Prophylaxis S/p PT consult- need SNF placement Subjective 24 Hr Interval Summary Free Text/Dictation WBC 8.7,K normal, CHETAN drain has been removed, denied by acute rehab Exam/Review of Systems Vital Signs Vitals Vital Signs Date Time Temp Pulse Resp B/P Pulse Ox O2 Delivery O2 Flow Rate FiO2 08/01/16 08:36 98.2 88 17 123/74 97 07/29/16 11:53 Nasal Cannula 2.0 Intake and Output 07/31/16 07/31/16 08/01/16 15:00 23:00 07:00 Intake Total 490 ml 1220 ml 1040 ml Output Total 1600 ml 2400 ml Balance 490 ml -380 ml -1360 ml Exam Constitutional: alert, oriented Respiratory: clear to auscultation Cardiovascular: regular rate and rhythm Gastrointestinal: soft, No distended,, + martinez catheter Musculoskeletal: nl extremities to inspection Results Result Diagram: 07/31/16 0424 08/01/16 0616 Results 24 hrs Laboratory Tests Test 07/31/16 14:52 08/01/16 05:16 08/01/16 06:16 Potassium Level 3.3 L 3.8 Prothrombin Time 13.4 Prothrombin Time Ratio 1.0 INR International Normalized Ratio 1.02 Activated Partial Thromboplast Time 28.0 Magnesium Level 2.0 Sodium Level 137 Chloride Level 106 Carbon Dioxide Level 28 Anion Gap 7 L Blood Urea Nitrogen 2 L Creatinine 0.52 Glucose Level 98 Calcium Level 8.6 Medications Medications Current Medications Acetaminophen (Tylenol Tab) 650 mg Q6H PRN PO PAIN LEVEL 1-3 OR FEVER Last administered on 07/31/16 22:23; Admin Dose 650 MG; Start 07/24/16 at 19:30 Acetaminophen/ Hydrocodone Bitart ([place] (5/325)) 1 tab Q6H PRN PO MODERATE PAIN LEVEL 4-6; Start 07/24/16 at 19:30 Morphine Sulfate 2 mg 2 mg Q4H PRN IV SEVERE PAIN LEVEL 7-10 Last administered on 07/26/16 05:33; Admin Dose 2 MG; Start 07/24/16 at 19:30 Piperacillin Sod/ Tazobactam Sod (Zosyn 3.375gm/ 100 ml (Pmx)) 100 ml @ 200 mls /hr Q8 IVPB Last administered on 08/01/16 05:21; Admin Dose 200 MLS/HR; Start 07/24/16 at 22:00 Oxycodone/ Acetaminophen (Percocet (5/ 325)) 1 tab Q4H PRN PO MILD PAIN (1-3) Last administered on 07/30/16 05:24; Admin Dose 1 TAB; Start 07/25/16 at 11:00 Oxycodone/ Acetaminophen (Percocet (5/ 325)) 2 tab Q4H PRN PO MODERATE PAIN (4- 6) Last administered on 07/27/16 19:03; Admin Dose 2 TAB; Start 07/25/16 at 11: 00 Diphenhydramine HCl (Benadryl) 25 mg Q6H PRN PO ITCHING Last administered on 04:24; Admin Dose 25 MG; Start 07/25/16 at 22:00 Ondansetron HCl (Zofran Inj) 4 mg Q4H PRN IV NAUSEA AND/OR VOMITING Last administered on 07/28/16 16:31; Admin Dose 4 MG; Start 07/26/16 at 11:30 Pantoprazole (Protonix Iv) 40 mg BID@06,18 IV Last administered on 08/01/16 05 :21; Admin Dose 40 MG; Start 07/29/16 at 18:00 Sucralfate 1 gm 1 gm QID PO Last administered on 08/01/16 09:00; Admin Dose 1 GM; Start 07/29/16 at 13:00 Potassium Chloride/Dextrose/ Sod Cl (D5-1/2ns + KCl 20 Meq) 1,000 ml @ 70 mls/ hr [id number] IV Last administered on 08/01/16 05:22; Admin Dose 70 MLS/HR; Start 07/31/16 at 13:30 ALEX SANCHEZ MD Aug 01, 2016 12:13
--- NOTE | 2016-08-01 16:08 | CONS ---
Date/Time of Note Date/Time of Note DATE: 08/01/16 TIME: 16:07 Assessment/Plan Assessment/Plan Additional Assessment/Plan IMPRESSION: 1. Acute cholecystitis status post cholecystectomy. 2. Rectal bleeding. From giant duodenal ulcer bleeding has completely stopped 3. Hypertension. 4. Anemia. 5. Distended bladder, urinary bladder outlet obstruction. Plan PPI twice daily for at least 8 week Monitor H&H periodically Refrain from aspirin and NSAID CHETAN drain removed Physical therapy Consultation Date/Type/Reason Admit Date/Time Jul 24, 2016 at 19:04 24 HR Interval Summary Constitutional: no complaints Exam/Review of Systems Vital Signs Vitals Vital Signs Date Time Temp Pulse Resp B/P Pulse Ox O2 Delivery O2 Flow Rate FiO2 08/01/16 08:36 98.2 88 17 123/74 97 07/29/16 11:53 Nasal Cannula 2.0 Intake and Output 07/31/16 07/31/16 08/01/16 15:00 23:00 07:00 Intake Total 490 ml 1220 ml 1040 ml Output Total 1600 ml 2400 ml Balance 490 ml -380 ml -1360 ml Exam Constitutional: alert, oriented, well developed Psych: nl mood/affect, no complaints Head: atraumatic, normocephalic Eyes: EOMI, PERRL, nl conjunctiva, nl lids, nl sclera ENMT: nl external ears & nose, nl lips & teeth, nl nasal mucosa & septum Neck: non-tender, supple Respiratory: clear to auscultation, normal air movement Cardiovascular: nl pulses, regular rate and rhythm Gastrointestinal: nl liver, spleen, non-tender, soft Musculoskeletal: nl extremities to inspection, nl gait and stance Extremities: normal pulses Neurological: VOLTAGE TESTER II-XII intact, nl mental status, nl speech, nl strength Skin: nl turgor, No rash or lesions Lymph: nl lymph nodes Results Result Diagram: 07/31/16 0424 08/01/16 0616 Results 24 hrs Laboratory Tests Test 08/01/16 05:16 08/01/16 06:16 Prothrombin Time 13.4 Prothrombin Time Ratio 1.0 INR International Normalized Ratio 1.02 Activated Partial Thromboplast Time 28.0 Magnesium Level 2.0 Sodium Level 137 Potassium Level 3.8 Chloride Level 106 Carbon Dioxide Level 28 Anion Gap 7 L Blood Urea Nitrogen 2 L Creatinine 0.52 Glucose Level 98 Calcium Level 8.6 Medications Medications Current Medications Acetaminophen (Tylenol Tab) 650 mg Q6H PRN PO PAIN LEVEL 1-3 OR FEVER Last administered on 07/31/16 22:23; Admin Dose 650 MG; Start 07/24/16 at 19:30 Acetaminophen/ Hydrocodone Bitart ([place] (5/325)) 1 tab Q6H PRN PO MODERATE PAIN LEVEL 4-6; Start 07/24/16 at 19:30 Morphine Sulfate 2 mg 2 mg Q4H PRN IV SEVERE PAIN LEVEL 7-10 Last administered on 07/26/16 05:33; Admin Dose 2 MG; Start 07/24/16 at 19:30 Piperacillin Sod/ Tazobactam Sod (Zosyn 3.375gm/ 100 ml (Pmx)) 100 ml @ 200 mls /hr Q8 IVPB Last administered on 08/01/16 13:59; Admin Dose 200 MLS/HR; Start 07/24/16 at 22:00 Oxycodone/ Acetaminophen (Percocet (5/ 325)) 1 tab Q4H PRN PO MILD PAIN (1-3) Last administered on 07/30/16 05:24; Admin Dose 1 TAB; Start 07/25/16 at 11:00 Oxycodone/ Acetaminophen (Percocet (5/ 325)) 2 tab Q4H PRN PO MODERATE PAIN (4- 6) Last administered on 07/27/16 19:03; Admin Dose 2 TAB; Start 07/25/16 at 11: 00 Diphenhydramine HCl (Benadryl) 25 mg Q6H PRN PO ITCHING Last administered on 04:24; Admin Dose 25 MG; Start 07/25/16 at 22:00 Ondansetron HCl (Zofran Inj) 4 mg Q4H PRN IV NAUSEA AND/OR VOMITING Last administered on 07/28/16 16:31; Admin Dose 4 MG; Start 07/26/16 at 11:30 Pantoprazole (Protonix Iv) 40 mg BID@06,18 IV Last administered on 08/01/16 05 :21; Admin Dose 40 MG; Start 07/29/16 at 18:00 Sucralfate 1 gm 1 gm QID PO Last administered on 08/01/16 13:59; Admin Dose 1 GM; Start 07/29/16 at 13:00 Potassium Chloride/Dextrose/ Sod Cl (D5-1/2ns + KCl 20 Meq) 1,000 ml @ 70 mls/ hr [id number] IV Last administered on 08/01/16t 05:22; Admin Dose 70 MLS/HR; Start 07/31/16 at 13:30 MEL FERRER MD Aug 01, 2016 16:08
[2016-08-01] MEDS ORDERED: METR500T14 PO (17:34)
[2016-08-01] MEDS ORDERED: CIPR500T4 PO (17:34)
[2016-08-01] MEDS ORDERED: PANT40TA3 PO (17:34)
[2016-08-01] MEDS ORDERED: CARAS PO (17:34)
[2016-08-01] MEDS ORDERED: HYDR-3498 PO (17:34)
[2016-08-01 19:40] VITALS: BP 137/75; PULSE 82
[2016-08-01 21:19] VITALS: BP 160/85; RESP 20
[2016-08-01 23:00] VITALS: BP 142/79
[2016-08-02] MEDS: D5W-0.45 NACL + KCL 20 MEQ 1,000 ML IV SCH ×2 (03:10→20:32)
[2016-08-02] MEDS: PANTOPRAZOLE 40 MG INJ IV SCH ×2 (05:41→18:09)
[2016-08-02] MEDS: PIPER-TAZO 3.375 GM IV (PMX) 100 ML IVPB SCH ×3 (05:42→22:13)
[2016-08-02 06:30] LABS: POTASSIUM 3.6 mmol/L (3.5-5.1)
[2016-08-02 06:32] LABS: CREATININE 0.58 mg/dl (0.44-1.00)
[2016-08-02 06:33] LABS: CALCIUM 8.4 mg/dl (8.4-10.2)
[2016-08-02 07:10] VITALS: BP 110/56; RESP 16
[2016-08-02] MEDS: SUCRALFATE (100 MG/ML) 10ML CUP PO SCH ×4 (08:53→20:24)
--- NOTE | 2016-08-02 10:38 | CONS ---
Date/Time of Note Date/Time of Note DATE: 08/02/16 TIME: 10:36 Assessment/Plan Assessment/Plan Chief Complaint/Hosp Course IMPRESSION: 1. Acute cholecystitis status post cholecystectomy. CHETAN drain pulled 2. Rectal bleeding. From giant duodenal ulcer bleeding has completely stopped. h/h stable. 3. Hypertension. 4. Anemia. h/h stable. 5. Distended bladder, urinary bladder outlet obstruction. Plan PPI twice daily for at least 8 week Monitor H&H periodically Refrain from aspirin and NSAID CHETAN drain removed Physical therapy OK from GI perspective to dc to SNF if ok with primary and other consultants Problems: Consultation Date/Type/Reason Admit Date/Time Jul 24, 2016 at 19:04 Initial Consult Date Type of Consultation: GI 24 HR Interval Summary Free Text/Dictation resting comfortably, no n/v, no abdominal pain Constitutional: improved Exam/Review of Systems Vital Signs Vitals Vital Signs Date Time Temp Pulse Resp B/P Pulse Ox O2 Delivery O2 Flow Rate FiO2 08/02/16 07:10 98.6 87 16 110/56 95 08/01/16 07:15 Room Air 07/29/16 11:53 2.0 Intake and Output 08/01/16 08/01/16 08/02/16 15:00 23:00 07:00 Intake Total 100 ml 1920 ml 920 ml Output Total 875 ml 1000 ml Balance 100 ml 1045 ml -80 ml Exam Constitutional: frail Head: atraumatic, normocephalic Eyes: EOMI, nl conjunctiva, nl lids, nl sclera ENMT: mucosa pink and moist, nl external ears & nose, nl lips & teeth, nl nasal mucosa & septum Neck: non-tender, supple Respiratory: clear to auscultation, normal air movement Cardiovascular: nl pulses, regular rate and rhythm Gastrointestinal: bowel sounds, non-tender, soft Results Result Diagram: 07/31/16 0424 08/02/16 0428 Results 24 hrs Laboratory Tests Test 08/02/16 04:28 Sodium Level 138 Potassium Level 3.6 Chloride Level 104 Carbon Dioxide Level 28 Anion Gap 10 Blood Urea Nitrogen 4 L Creatinine 0.58 Glucose Level 94 Calcium Level 8.4 Medications Medications Current Medications Acetaminophen (Tylenol Tab) 650 mg Q6H PRN PO PAIN LEVEL 1-3 OR FEVER Last administered on 07/31/16t 22:23; Admin Dose 650 MG; Start 4/13/17 at 19:30 Acetaminophen/ Hydrocodone Bitart ([place] (5/325)) 1 tab Q6H PRN PO MODERATE PAIN LEVEL 4-6; Start 07/24/16 at 19:30 Morphine Sulfate 2 mg 2 mg Q4H PRN IV SEVERE PAIN LEVEL 7-10 Last administered on 07/26/16 05:33; Admin Dose 2 MG; Start 07/24/16 at 19:30 Piperacillin Sod/ Tazobactam Sod (Zosyn 3.375gm/ 100 ml (Pmx)) 100 ml @ 200 mls /hr Q8 IVPB Last administered on 08/02/16 05:42; Admin Dose 200 MLS/HR; Start 07/24/16 at 22:00 Oxycodone/ Acetaminophen (Percocet (5/ 325)) 1 tab Q4H PRN PO MILD PAIN (1-3) Last administered on 07/30/16 05:24; Admin Dose 1 TAB; Start 07/25/16 at 11:00 Oxycodone/ Acetaminophen (Percocet (5/ 325)) 2 tab Q4H PRN PO MODERATE PAIN (4- 6) Last administered on 07/27/16 19:03; Admin Dose 2 TAB; Start 07/25/16 at 11: 00 Diphenhydramine HCl (Benadryl) 25 mg Q6H PRN PO ITCHING Last administered on 04:24; Admin Dose 25 MG; Start 07/25/16 at 22:00 Ondansetron HCl (Zofran Inj) 4 mg Q4H PRN IV NAUSEA AND/OR VOMITING Last administered on 07/28/16 16:31; Admin Dose 4 MG; Start 07/26/16 at 11:30 Pantoprazole (Protonix Iv) 40 mg BID@06,18 IV Last administered on 08/02/16 05 :41; Admin Dose 40 MG; Start 07/29/16 at 18:00 Sucralfate 1 gm 1 gm QID PO Last administered on 08/02/16 08:53; Admin Dose 1 GM; Start 07/29/16 at 13:00 Potassium Chloride/Dextrose/ Sod Cl (D5-1/2ns + KCl 20 Meq) 1,000 ml @ 70 mls/ hr [id number] IV Last administered on 08/02/16t 03:10; Admin Dose 70 MLS/HR; Start 07/31/16 at 13:30 THERESE BURGESS MD Aug 02, 2016 10:38
--- NOTE | 2016-08-02 11:14 | PN ---
Date/Time of Note Date/Time of Note DATE: 08/02/16 TIME: 11:09 Assessment/Plan VTE Prophylaxis VTE Prophylaxis Intervention: SCD's Lines/Catheters IV [facility] Type (from [facility]): Peripheral IV Assessment/Plan Chief Complaint/Hosp Course 1. Acute cholecystitis status post lap james with drain placement, WBC 8.7 on IV abx zosyn - CHETAN drain removed 2. History of hypertension- Blood pressure is currently stable without any meds 4. BRBPR- s/p GI consult, S/p EGD showed Giant duodenal ulcer covered with an old thin layer of black-colored clots. The size of the ulcer was that a quarter. Edematous pyloric channel and narrowed lumen secondary to edema.Esophageal ulceration. Colonoscopy showed 1.5 cm polyp in the sigmoid colon, needs to be removed after a few months to year.Diverticulosis mainly on the left side of the colon.Negative all the way into cecum. No evidence of bleeding or altered blood. no more bleeding today 5. Acute Urinary retention s/p Delgadillo catheter placement IVF D51/2 NS with 20mEQ KCL - plan is to d/c IVF tomorrow 6. Fall -pt fell yesterday -no pain or SKAGGS reported -S/p PT consult- need SNF placement Dispo- Plan was to [facility] to [facility] but pt fell yesterday and transfer was held, will F /U with [facility] recs, pt will need SNF if [facility] does not accept PPx- SCD's Problems: Subjective 24 Hr Interval Summary Constitutional: no complaints Exam/Review of Systems Vital Signs Vitals Vital Signs Date Time Temp Pulse Resp B/P Pulse Ox O2 Delivery O2 Flow Rate FiO2 08/02/16 07:10 98.6 87 16 110/56 95 08/01/16 07:15 Room Air 07/29/16 11:53 2.0 Intake and Output 08/01/16 08/01/16 08/02/16 15:00 23:00 07:00 Intake Total 100 ml 1920 ml 920 ml Output Total 875 ml 1000 ml Balance 100 ml 1045 ml -80 ml Exam Constitutional: alert Respiratory: clear to auscultation Cardiovascular: regular rate and rhythm Gastrointestinal: soft, No distended Musculoskeletal: nl extremities to inspection Results Result Diagram: 07/31/16 0424 08/02/16 0428 Results 24 hrs Laboratory Tests Test 08/02/16 04:28 Sodium Level 138 Potassium Level 3.6 Chloride Level 104 Carbon Dioxide Level 28 Anion Gap 10 Blood Urea Nitrogen 4 L Creatinine 0.58 Glucose Level 94 Calcium Level 8.4 Medications Medications Current Medications Acetaminophen (Tylenol Tab) 650 mg Q6H PRN PO PAIN LEVEL 1-3 OR FEVER Last administered on 07/31/16 22:23; Admin Dose 650 MG; Start 07/24/16 at 19:30 Acetaminophen/ Hydrocodone Bitart ([place] (5/325)) 1 tab Q6H PRN PO MODERATE PAIN LEVEL 4-6; Start 07/24/16 at 19:30 Morphine Sulfate 2 mg 2 mg Q4H PRN IV SEVERE PAIN LEVEL 7-10 Last administered on 07/26/16 05:33; Admin Dose 2 MG; Start 07/24/16 at 19:30 Piperacillin Sod/ Tazobactam Sod (Zosyn 3.375gm/ 100 ml (Pmx)) 100 ml @ 200 mls /hr Q8 IVPB Last administered on 08/02/16 05:42; Admin Dose 200 MLS/HR; Start 07/24/16 at 22:00 Oxycodone/ Acetaminophen (Percocet (5/ 325)) 1 tab Q4H PRN PO MILD PAIN (1-3) Last administered on 07/30/16 05:24; Admin Dose 1 TAB; Start 07/25/16 at 11:00 Oxycodone/ Acetaminophen (Percocet (5/ 325)) 2 tab Q4H PRN PO MODERATE PAIN (4- 6) Last administered on 07/27/16 19:03; Admin Dose 2 TAB; Start 07/25/16 at 11: 00 Diphenhydramine HCl (Benadryl) 25 mg Q6H PRN PO ITCHING Last administered on 04:24; Admin Dose 25 MG; Start 07/25/16 at 22:00 Ondansetron HCl (Zofran Inj) 4 mg Q4H PRN IV NAUSEA AND/OR VOMITING Last administered on 07/28/16 16:31; Admin Dose 4 MG; Start 07/26/16 at 11:30 Pantoprazole (Protonix Iv) 40 mg BID@06,18 IV Last administered on 08/02/16 05 :41; Admin Dose 40 MG; Start 07/29/16 at 18:00 Sucralfate 1 gm 1 gm QID PO Last administered on 08/02/16 08:53; Admin Dose 1 GM; Start 07/29/16 at 13:00 Potassium Chloride/Dextrose/ Sod Cl (D5-1/2ns + KCl 20 Meq) 1,000 ml @ 70 mls/ hr [id number] IV Last administered on 08/02/16 03:10; Admin Dose 70 MLS/HR; Start 07/31/16 at 13:30 BRANDI SALDIVAR Aug 02, 2016 11:14
[2016-08-02] MEDS: ACETAMINOPHEN 325 MG TAB PO PRN (14:23)
[2016-08-02 20:00] VITALS: BP 110/56; RESP 18
[2016-08-03] MEDS: PANTOPRAZOLE 40 MG INJ IV SCH (05:23)
[2016-08-03] MEDS: PIPER-TAZO 3.375 GM IV (PMX) 100 ML IVPB SCH ×3 (05:23→21:27)
[2016-08-03 05:47] LABS: ADD SCAN DIFF NO
[2016-08-03 06:19] LABS: CALCIUM 8.3 mg/dl (8.4-10.2); CREATININE 0.47 mg/dl (0.44-1.00); POTASSIUM 3.8 mmol/L (3.5-5.1)
[2016-08-03] MEDS: SUCRALFATE (100 MG/ML) 10ML CUP PO SCH ×4 (07:56→20:25)
[2016-08-03 08:33] VITALS: BP 117/68; RESP 18
[2016-08-03 09:29] LABS: BASOPHILS % 0.1 % (0.0-2.0); EOSINOPHILS # 0.3 10^3/ul (0.0-0.5); EOSINOPHILS % 3.2 % (0.0-7.0); HEMATOCRIT 23.8 % (37.0-47.0); HEMOGLOBIN 7.6 g/dl (12.0-16.0); LYMPHOCYTES # 0.9 10^3/ul (0.8-2.9); LYMPHOCYTES % 9.3 % (15.0-51.0); MEAN CORPUSCULAR HEMOGLOBIN 30.6 pg (29.0-33.0); MEAN CORPUSCULAR HGB CONC 31.9 g/dl (32.0-37.0); MEAN PLATELET VOLUME 9.1 fl (7.4-10.4); MONOCYTE # 0.8 10^3/ul (0.3-0.9); MONOCYTES % 8.7 % (0.0-11.0); NEUTROPHIL # 7.2 10^3/ul (1.6-7.5); NEUTROPHILS % 77.9 % (39.0-77.0); PLATELET COUNT 560 10^3/UL (140-415); RED BLOOD COUNT 2.48 10^6/ul (4.20-5.40); WHITE BLOOD COUNT 9.3 10^3/ul (4.8-10.8)
[2016-08-03] MEDS: TAMSULOSIN (SR) 0.4 MG CAP PO SCH (10:16)
[2016-08-03] MEDS ORDERED: SOD CHLORIDE 0.9% 250 ML IV* ONE (10:53)
--- NOTE | 2016-08-03 11:01 | CONS ---
Date/Time of Note Date/Time of Note DATE: 08/03/16 TIME: 10:58 Assessment/Plan Assessment/Plan Chief Complaint/Hosp Course IMPRESSION: 1. Acute cholecystitis status post cholecystectomy. CHETAN drain pulled 2. Rectal bleeding. From giant duodenal ulcer bleeding has completely stopped. h/h stable. 3. Hypertension. 4. Anemia. h/h dropped to 7.6 today 5. Distended bladder, urinary bladder outlet obstruction. Plan changed protonix to PO transfuse 2 units of pRBC Refrain from aspirin and NSAID Physical therapy hold transfer today I dc IVF as patient is eating Problems: Consultation Date/Type/Reason Admit Date/Time Jul 24, 2016 at 19:04 Type of Consultation: GI 24 HR Interval Summary Free Text/Dictation no melena, brbpr, coffee ground emesis or hematemesis. hgb dropped to 7.6 Exam/Review of Systems Vital Signs Vitals Vital Signs Date Time Temp Pulse Resp B/P Pulse Ox O2 Delivery O2 Flow Rate FiO2 08/03/16 08:33 98.2 89 18 117/68 95 08/01/16 07:15 Room Air Intake and Output 08/02/16 08/02/16 08/03/16 15:00 23:00 07:00 Intake Total 1710 ml 800 ml Output Total 1000 ml 1500 ml Balance 710 ml -700 ml Exam Constitutional: alert, oriented, well developed Psych: nl mood/affect, no complaints Head: atraumatic, normocephalic Eyes: EOMI, nl conjunctiva, nl lids, nl sclera ENMT: mucosa pink and moist, nl external ears & nose, nl lips & teeth, nl nasal mucosa & septum Neck: non-tender, supple Respiratory: clear to auscultation, normal air movement Cardiovascular: nl pulses, regular rate and rhythm Gastrointestinal: bowel sounds, non-tender, soft Results Result Diagram: 08/03/16 0430 08/03/16 0430 Results 24 hrs Laboratory Tests Test 08/03/16 04:30 White Blood Count 9.3 Red Blood Count 2.48 L Hemoglobin 7.6 L Hematocrit 23.8 L Mean Corpuscular Volume 96.0 Mean Corpuscular Hemoglobin 30.6 Mean Corpuscular Hemoglobin Concent 31.9 L Red Cell Distribution Width 14.0 Platelet Count 560 #H Mean Platelet Volume 9.1 Neutrophils % 77.9 H Lymphocytes % 9.3 L Monocytes % 8.7 Eosinophils % 3.2 Basophils % 0.1 Nucleated Red Blood Cells % 0.0 Neutrophils # 7.2 Lymphocytes # 0.9 Monocytes # 0.8 Eosinophils # 0.3 Basophils # 0.0 Nucleated Red Blood Cells # 0.0 Sodium Level 136 Potassium Level 3.8 Chloride Level 107 Carbon Dioxide Level 25 Anion Gap 8 Blood Urea Nitrogen 5 L Creatinine 0.47 Glucose Level 93 Calcium Level 8.3 L Medications Medications Current Medications Acetaminophen (Tylenol Tab) 650 mg Q6H PRN PO PAIN LEVEL 1-3 OR FEVER Last administered on 08/02/16 14:23; Admin Dose 650 MG; Start 07/24/16 at 19:30 Acetaminophen/ Hydrocodone Bitart ([place] (5/325)) 1 tab Q6H PRN PO MODERATE PAIN LEVEL 4-6; Start 07/24/16 at 19:30 Morphine Sulfate 2 mg 2 mg Q4H PRN IV SEVERE PAIN LEVEL 7-10 Last administered on 07/26/16 05:33; Admin Dose 2 MG; Start 07/24/16 at 19:30 Piperacillin Sod/ Tazobactam Sod (Zosyn 3.375gm/ 100 ml (Pmx)) 100 ml @ 200 mls /hr Q8 IVPB Last administered on 08/03/16 05:23; Admin Dose 200 MLS/HR; Start 07/24/16 at 22:00 Oxycodone/ Acetaminophen (Percocet (5/ 325)) 1 tab Q4H PRN PO MILD PAIN (1-3) Last administered on 07/30/16 05:24; Admin Dose 1 TAB; Start 07/25/16 at 11:00 Oxycodone/ Acetaminophen (Percocet (5/ 325)) 2 tab Q4H PRN PO MODERATE PAIN (4- 6) Last administered on 07/27/16 19:03; Admin Dose 2 TAB; Start 07/25/16 at 11: 00 Diphenhydramine HCl (Benadryl) 25 mg Q6H PRN PO ITCHING Last administered on 04:24; Admin Dose 25 MG; Start 07/25/16 at 22:00 Ondansetron HCl (Zofran Inj) 4 mg Q4H PRN IV NAUSEA AND/OR VOMITING Last administered on 07/28/16 16:31; Admin Dose 4 MG; Start 07/26/16 at 11:30 Pantoprazole (Protonix Iv) 40 mg BID@06,18 IV Last administered on 08/03/16 05 :23; Admin Dose 40 MG; Start 07/29/16 at 18:00 Sucralfate 1 gm 1 gm QID PO Last administered on 08/03/16 07:56; Admin Dose 1 GM; Start 07/29/16 at 13:00 Potassium Chloride/Dextrose/ Sod Cl (D5-1/2ns + KCl 20 Meq) 1,000 ml @ 70 mls/ hr [id number] IV Last administered on 08/02/16 20:32; Admin Dose 70 MLS/HR; Start 07/31/16 at 13:30 Tamsulosin HCl (Flomax) 0.4 mg DAILY PO Last administered on 08/03/16 10:16; Admin Dose 0.4 MG; Start 08/03/16 at 10:00 THERESE BURGESS MD Aug 03, 2016 11:01
[2016-08-03] MEDS: PANTOPRAZOLE (EC) 40 MG TAB PO SCH ×2 (12:00→18:57)
[2016-08-03 19:20] VITALS: BP 139/72; RESP 21
--- NOTE | 2016-08-03 19:44 | PN ---
Date/Time of Note Date/Time of Note DATE: 08/03/16 TIME: 19:42 Assessment/Plan VTE Prophylaxis VTE Prophylaxis Intervention: SCD's Lines/Catheters IV [facility]ter Type (from [facility]): Peripheral IV Assessment/Plan Chief Complaint/Hosp Course 1. Acute cholecystitis status post lap james with drain placement, WBC 8.7 on IV abx zosyn - CHETAN drain removed 2. History of hypertension- Blood pressure is currently stable without any meds 4. BRBPR- s/p GI consult, S/p EGD showed Giant duodenal ulcer covered with an old thin layer of black-colored clots. The size of the ulcer was that a quarter. Edematous pyloric channel and narrowed lumen secondary to edema.Esophageal ulceration. Colonoscopy showed 1.5 cm polyp in the sigmoid colon, needs to be removed after a few months to year.Diverticulosis mainly on the left side of the colon.Negative all the way into cecum. No evidence of bleeding or altered blood. no more bleeding today 5. Acute Urinary retention s/p Delgadillo catheter placement IVF D51/2 NS with 20mEQ KCL - plan is to d/c IVF tomorrow 6. Fall -pt fell yesterday -no pain or SKAGGS reported -S/p PT consult- need SNF placement 7. Anemia -transfuse 2 units of PRBC's today Dispo- Plan was to DC to [facility] but pt fell and now is anemic and hence may go tomorrow PPx- SCD's Problems: Subjective 24 Hr Interval Summary Constitutional: no complaints Exam/Review of Systems Vital Signs Vitals Vital Signs Date Time Temp Pulse Resp B/P Pulse Ox O2 Delivery O2 Flow Rate FiO2 08/03/16 08:33 98.2 89 18 117/68 95 08/01/16 07:15 Room Air Intake and Output 08/02/16 08/02/16 08/03/16 15:00 23:00 07:00 Intake Total 1710 ml 800 ml Output Total 1000 ml 1500 ml Balance 710 ml -700 ml Exam Constitutional: alert Respiratory: clear to auscultation Cardiovascular: regular rate and rhythm Gastrointestinal: soft, No distended Musculoskeletal: nl extremities to inspection Results Result Diagram: 08/03/16 0430 08/03/16 0430 Results 24 hrs Laboratory Tests Test 08/03/16 04:30 White Blood Count 9.3 Red Blood Count 2.48 L Hemoglobin 7.6 L Hematocrit 23.8 L Mean Corpuscular Volume 96.0 Mean Corpuscular Hemoglobin 30.6 Mean Corpuscular Hemoglobin Concent 31.9 L Red Cell Distribution Width 14.0 Platelet Count 560 #H Mean Platelet Volume 9.1 Neutrophils % 77.9 H Lymphocytes % 9.3 L Monocytes % 8.7 Eosinophils % 3.2 Basophils % 0.1 Nucleated Red Blood Cells % 0.0 Neutrophils # 7.2 Lymphocytes # 0.9 Monocytes # 0.8 Eosinophils # 0.3 Basophils # 0.0 Nucleated Red Blood Cells # 0.0 Sodium Level 136 Potassium Level 3.8 Chloride Level 107 Carbon Dioxide Level 25 Anion Gap 8 Blood Urea Nitrogen 5 L Creatinine 0.47 Glucose Level 93 Calcium Level 8.3 L Medications Medications Current Medications Acetaminophen (Tylenol Tab) 650 mg Q6H PRN PO PAIN LEVEL 1-3 OR FEVER Last administered on 08/02/16 14:23; Admin Dose 650 MG; Start 07/24/16 at 19:30 Acetaminophen/ Hydrocodone Bitart ([place] (5/325)) 1 tab Q6H PRN PO MODERATE PAIN LEVEL 4-6; Start 07/24/16 at 19:30 Morphine Sulfate 2 mg 2 mg Q4H PRN IV SEVERE PAIN LEVEL 7-10 Last administered on 07/26/16 05:33; Admin Dose 2 MG; Start 07/24/16 at 19:30 Piperacillin Sod/ Tazobactam Sod (Zosyn 3.375gm/ 100 ml (Pmx)) 100 ml @ 200 mls /hr Q8 IVPB Last administered on 08/03/16 15:42; Admin Dose 200 MLS/HR; Start 07/24/16 at 22:00 Oxycodone/ Acetaminophen (Percocet (5/ 325)) 1 tab Q4H PRN PO MILD PAIN (1-3) Last administered on 07/30/16 05:24; Admin Dose 1 TAB; Start 07/25/16 at 11:00 Oxycodone/ Acetaminophen (Percocet (5/ 325)) 2 tab Q4H PRN PO MODERATE PAIN (4- 6) Last administered on 07/27/16 19:03; Admin Dose 2 TAB; Start 07/25/16 at 11: 00 Diphenhydramine HCl (Benadryl) 25 mg Q6H PRN PO ITCHING Last administered on 04:24; Admin Dose 25 MG; Start 07/25/16 at 22:00 Ondansetron HCl (Zofran Inj) 4 mg Q4H PRN IV NAUSEA AND/OR VOMITING Last administered on 07/28/16 16:31; Admin Dose 4 MG; Start 07/26/16 at 11:30 Sucralfate (Carafate Susp) 1 gm QID PO Last administered on 08/03/16 18:57; Admin Dose 1 GM; Start 07/29/16 at 13:00 Tamsulosin HCl (Flomax) 0.4 mg DAILY PO Last administered on 08/03/16 10:16; Admin Dose 0.4 MG; Start 08/03/16 at 10:00 Pantoprazole (Protonix Tab) 40 mg BID@,18 PO Last administered on 08/03/16 18:57; Admin Dose 40 MG; Start 08/03/16 at 12:00 BRANDI SALDIVAR Aug 03, 2016 19:44
[2016-08-04] MEDS: PANTOPRAZOLE (EC) 40 MG TAB PO SCH ×2 (05:40→18:02)
[2016-08-04] MEDS: PIPER-TAZO 3.375 GM IV (PMX) 100 ML IVPB SCH ×2 (05:40→13:18)
[2016-08-04 05:58] LABS: ADD SCAN DIFF NO
[2016-08-04 06:12] LABS: BASOPHILS % 0.3 % (0.0-2.0); EOSINOPHILS # 0.3 10^3/ul (0.0-0.5); EOSINOPHILS % 3.1 % (0.0-7.0); HEMOGLOBIN 11.2 g/dl (12.0-16.0); LYMPHOCYTES # 0.9 10^3/ul (0.8-2.9); LYMPHOCYTES % 10.1 % (15.0-51.0); MEAN CORPUSCULAR HEMOGLOBIN 29.7 pg (29.0-33.0); MEAN CORPUSCULAR HGB CONC 33.9 g/dl (32.0-37.0); MEAN CORPUSCULAR VOLUME 87.5 fl (82.0-101.0); MEAN PLATELET VOLUME 8.5 fl (7.4-10.4); MONOCYTE # 0.6 10^3/ul (0.3-0.9); MONOCYTES % 7.1 % (0.0-11.0); NEUTROPHIL # 6.9 10^3/ul (1.6-7.5); NEUTROPHILS % 78.4 % (39.0-77.0); PLATELET COUNT 579 10^3/UL (140-415); RED BLOOD COUNT 3.77 10^6/ul (4.20-5.40); RED CELL DISTRIBUTION WIDTH 16.9 % (11.5-14.5); WHITE BLOOD COUNT 8.8 10^3/ul (4.8-10.8)
[2016-08-04 06:30] LABS: ALBUMIN 2.8 g/dl (3.3-4.9)
[2016-08-04 06:31] LABS: POTASSIUM 3.2 mmol/L (3.5-5.1)
[2016-08-04 06:33] LABS: BILIRUBIN,INDIRECT 1.6 mg/dl (0-1.1); BILIRUBIN,TOTAL 1.6 mg/dl (0.2-1.3); CREATININE 0.49 mg/dl (0.44-1.00); TOTAL PROTEIN 6.1 g/dl (6.1-8.1)
[2016-08-04 06:34] LABS: CALCIUM 8.7 mg/dl (8.4-10.2)
[2016-08-04 06:40] LABS: ALBUMIN/GLOBULIN RATIO 0.84
[2016-08-04 07:05] VITALS: RESP 18
[2016-08-04] MEDS: SUCRALFATE (100 MG/ML) 10ML CUP PO SCH ×3 (09:18→18:02)
[2016-08-04] MEDS: TAMSULOSIN (SR) 0.4 MG CAP PO SCH (09:19)
[2016-08-04 09:25] VITALS: BP 135/67
[2016-08-04] MEDS ORDERED: POTASSIUM CHLORIDE (SR) 20 MEQ TAB PO STA (11:25)
--- NOTE | 2016-08-04 16:36 | CONS ---
Date/Time of Note Date/Time of Note DATE: 08/04/16 TIME: 16:35 Assessment/Plan Assessment/Plan Additional Assessment/Plan Additional Assessment/Plan IMPRESSION: 1. Acute cholecystitis status post cholecystectomy. 2. Rectal bleeding. From giant duodenal ulcer bleeding has completely stopped 3. Hypertension. 4. Anemia. 5. Distended bladder, urinary bladder outlet obstruction. Plan PPI twice daily for at least 8 week Monitor H&H periodically Refrain from aspirin and NSAID CHETAN drain removed Physical therapy Hematocrit is improved now it is 33 after 2 units of packed cell RBC transfusion. There is no evidence of active bleeding Consultation Date/Type/Reason Admit Date/Time Jul 24, 2016 at 19:04 Type of Consultation: GI 24 HR Interval Summary Constitutional: improved, no complaints Exam/Review of Systems Vital Signs Vitals Vital Signs Date Time Temp Pulse Resp B/P Pulse Ox O2 Delivery O2 Flow Rate FiO2 08/04/16 09:25 98.2 90 135/67 08/04/16 07:05 18 97 08/01/16 07:15 Room Air Intake and Output 08/03/16 08/03/16 08/04/16 15:00 23:00 07:00 Intake Total 660 ml 1190 ml 1210 ml Output Total 200 ml 650 ml 500 ml Balance 460 ml 540 ml 710 ml Exam Constitutional: alert, oriented, well developed Psych: nl mood/affect, no complaints Head: atraumatic, normocephalic Eyes: EOMI, PERRL, nl conjunctiva, nl lids, nl sclera ENMT: nl external ears & nose, nl lips & teeth, nl nasal mucosa & septum Neck: non-tender, supple Respiratory: clear to auscultation, normal air movement Cardiovascular: nl pulses, regular rate and rhythm Gastrointestinal: nl liver, spleen, non-tender, soft Musculoskeletal: nl extremities to inspection, nl gait and stance Extremities: normal pulses Neurological: PROFESSOR OF BIOSTATISTICS II-XII intact, nl mental status, nl speech, nl strength Skin: nl turgor, No rash or lesions Lymph: nl lymph nodes Results Result Diagram: 08/04/16 0532 08/04/16 0532 Results 24 hrs Laboratory Tests Test 08/04/16 05:32 White Blood Count 8.8 Red Blood Count 3.77 #L Hemoglobin 11.2 #L Hematocrit 33.0 #L Mean Corpuscular Volume 87.5 Mean Corpuscular Hemoglobin 29.7 Mean Corpuscular Hemoglobin Concent 33.9 Red Cell Distribution Width 16.9 #H Platelet Count 579 H Mean Platelet Volume 8.5 Neutrophils % 78.4 H Lymphocytes % 10.1 L Monocytes % 7.1 Eosinophils % 3.1 Basophils % 0.3 Nucleated Red Blood Cells % 0.0 Neutrophils # 6.9 Lymphocytes # 0.9 Monocytes # 0.6 Eosinophils # 0.3 Basophils # 0.0 Nucleated Red Blood Cells # 0.0 Sodium Level 140 Potassium Level 3.2 L Chloride Level 106 Carbon Dioxide Level 26 Anion Gap 11 Blood Urea Nitrogen 6 L Creatinine 0.49 Glucose Level 97 Calcium Level 8.7 Total Bilirubin 1.6 H Direct Bilirubin 0.00 Indirect Bilirubin 1.6 H Aspartate Amino Transf (AST/SGOT) 34 Alanine Aminotransferase (ALT/SGPT) 41 Alkaline Phosphatase 78 Total Protein 6.1 Albumin 2.8 L Globulin 3.30 H Albumin/Globulin Ratio 0.84 Medications Medications Current Medications Acetaminophen (Tylenol Tab) 650 mg Q6H PRN PO PAIN LEVEL 1-3 OR FEVER Last administered on 08/02/16 14:23; Admin Dose 650 MG; Start 07/24/16 at 19:30 Acetaminophen/ Hydrocodone Bitart ([place] (5/325)) 1 tab Q6H PRN PO MODERATE PAIN LEVEL 4-6; Start 07/24/16 at 19:30 Morphine Sulfate 2 mg 2 mg Q4H PRN IV SEVERE PAIN LEVEL 7-10 Last administered on 07/26/16 05:33; Admin Dose 2 MG; Start 07/24/16 at 19:30 Piperacillin Sod/ Tazobactam Sod (Zosyn 3.375gm/ 100 ml (Pmx)) 100 ml @ 200 mls /hr Q8 IVPB Last administered on 08/04/16 13:18; Admin Dose 200 MLS/HR; Start 07/24/16 at 22:00 Oxycodone/ Acetaminophen (Percocet (5/ 325)) 1 tab Q4H PRN PO MILD PAIN (1-3) Last administered on 07/30/16 05:24; Admin Dose 1 TAB; Start 07/25/16 at 11:00 Oxycodone/ Acetaminophen (Percocet (5/ 325)) 2 tab Q4H PRN PO MODERATE PAIN (4- 6) Last administered on 07/27/16 19:03; Admin Dose 2 TAB; Start 07/25/16 at 11: 00 Diphenhydramine HCl (Benadryl) 25 mg Q6H PRN PO ITCHING Last administered on 04:24; Admin Dose 25 MG; Start 07/25/16 at 22:00 Ondansetron HCl (Zofran Inj) 4 mg Q4H PRN IV NAUSEA AND/OR VOMITING Last administered on 07/28/16 16:31; Admin Dose 4 MG; Start 07/26/16 at 11:30 Sucralfate (Carafate Susp) 1 gm QID PO Last administered on 08/04/16 12:44; Admin Dose 1 GM; Start 07/29/16 at 13:00 Tamsulosin HCl (Flomax) 0.4 mg DAILY PO Last administered on 08/04/16 09:19; Admin Dose 0.4 MG; Start 08/03/16 at 10:00 Pantoprazole (Protonix Tab) 40 mg BID@18 PO Last administered on 08/04/16 05:40; Admin Dose 40 MG; Start 08/03/16 at 12:00 MEL FERRER MD Aug 04, 2016 16:36
--- NOTE | 2016-08-05 03:22 | DS ---
DATE OF ADMISSION: 07/24/2016 DATE OF DISCHARGE: 08/04/2016 DISCHARGE DIAGNOSES: 1. Acute cholecystitis status post laparoscopic cholecystectomy with drain placement and drain dougie ranjan. 2. Gastrointestinal bleed status post esophagogastroduodenoscopy that showed a large duodenal ulcer . 3. Neurogenic bladder secondary to surgery, now improved. 4. Fall with debility. No pain reported by the patient. No change in mentation. The patient is t o be transferred to rehabilitation. HOSPITAL COURSE: The patient is an 80-year-old female with a history of hypertension, otherwise no medical history. The patient presented with abdominal pain and was found to have acute cholecystiti s. She was taken to the OR with Dr. Booth where the patient had a laparoscopic cholecystectomy and drain was ultimately placed. The patient did have a drop in her hemoglobin and was seen by GI. e did have positive stool occult blood. The patient was taken down for EGD with colonoscopy. The p atient had a polyp in the sigmoid colon that needs to be removed after a few months to a year. She had diverticulosis in the left side of the colon. Otherwise, negative colonoscopy. There was no ev idence of bleeding. The patient's EGD did show a giant duodenal ulcer. She did have edematous pylo kennedy channel and narrowed lumen secondary to edema and esophageal ulceration. The patient was put on Protonix as well as Carafate. Her hemoglobin did stabilize. At one point, it did drop again, and she was given 2 units of packed red blood cells. She was approved for acute rehabilitation, but at one point she did fall and at another point she required the 2 units of packed red blood cells; hen e, the transfer was delayed. Ultimately, she was cleared for transfer. The patient was felt to be stable for discharge. Of note, the drain was removed by the surgeon. On the day of discharge, the patient's vitals, labs, and physical exam were stable. She had no acute complaints. All questions were answered. CONDITION ON DISCHARGE: Stable. DISPOSITION: To acute rehab unit. MEDICATIONS: The patient was given 1. Cipro 500 mg p.o. b.i.d. 2. [place]. 3. Flagyl 500 mg q. 8 hours. 4. Protonix 40 mg p.o. b.i.d. 5. Carafate 1 gram p.o. q.i.d. The patient was to stop her blood pressure medications. FOLLOWUP: The patient is to follow up with physicians at the acute rehab unit and ultimately with h er PCP. Greater than 30 minutes was spent coordinating discharge of patient. Dictated By: BRANDI SALDIVAR MD BS/NTS Conf#: [id number] DID#: [id number]
== END 2016-08-04 18:10 | disposition short-term general hospital (02) | DRG 417 ==
LOC: E/R 17:00 → PP2 19:04
PROVIDERS: ADMIT Internal Medicine; ATTEND Internal Medicine
PROC: 0FT44ZZ Resection of Gallbladder, Percutaneous Endoscopic Approach (ICD-10-PCS; principal; 2016-07-25 07:30)
PROC: 0DJD8ZZ Inspection of Lower Intestinal Tract, Via Natural or Artificial Opening Endoscopic (ICD-10-PCS; 2016-07-29)
PROC: 0DB68ZX Excision of Stomach, Via Natural or Artificial Opening Endoscopic, Diagnostic (ICD-10-PCS; 2016-07-29 11:00)
PROC: 30233P1 Transfusion of Nonautologous Frozen Red Cells into Peripheral Vein, Percutaneous Approach (ICD-10-PCS; 2016-08-03)
DX: K81.0 Acute cholecystitis (principal); K26.4 Chronic or unspecified duodenal ulcer with hemorrhage; K56.0 Paralytic ileus; E88.09 Other disorders of plasma-protein metabolism, not elsewhere classified; E87.1 Hypo-osmolality and hyponatremia; K22.10 Ulcer of esophagus without bleeding; D62 Acute posthemorrhagic anemia; D72.829 Elevated white blood cell count, unspecified; I10 Essential (primary) hypertension; Z86.018 Personal history of other benign neoplasm; E87.6 Hypokalemia; E78.5 Hyperlipidemia, unspecified; R74.0 Nonspecific elevation of levels of transaminase and lactic acid dehydrogenase [LDH]; N13.9 Obstructive and reflux uropathy, unspecified; R33.9 Retention of urine, unspecified; K57.30 Diverticulosis of large intestine without perforation or abscess without bleeding; D12.5 Benign neoplasm of sigmoid colon
CPT/HCPCS: 36415; 36430; 70450; 71010; 74176; 76705; 80048; 80053; 81001; 81003; 82270; 83036; 83605; 83690; 83735; 84100; 84132; 84484; 85025; 85610; 85730; 86850; 86900; 86901; 86920; 87070; 87075; 88304; 88305; 88312; 93005; 96374; 96375; 97116; 97162; 97530; A4310; C9113; J0131; J0330; J0692; J1100; J1170; J1200; J2270; J2405; J2543; J2710; J3010; J3480; J7030; J7040; J7042; P9016

== ENCOUNTER 2016-08-04 16:22 | Inpatient (IN) | payer MEDICARE, BC ==
[~2016-08-04] VITALS: Ht 152.4 cm; Wt 54.0 kg
[~2016-08-04 16:22] MED LIST: CARAS PO; CIPR500T4 PO; HYDR-3498 PO; METR500T14 PO; PANT40TA3 PO
[2016-08-04 20:11] VITALS: BP 148/87; RESP 18
[2016-08-04] MEDS ORDERED: HYDROCODONE/APAP (5/325) TAB PO PRN (21:16)
[2016-08-04] MEDS ORDERED: NACL 0.9% 3 ML SYG IV SCH (21:16)
[2016-08-04] MEDS ORDERED: MAGNESIUM HYDROXIDE 30ML CUP PO PRN (21:30)
[2016-08-04] MEDS ORDERED: BISACODYL 10 MG SUPP PR PRN (21:30)
[2016-08-04] MEDS ORDERED: LACTULOSE 30ML CUP PO PRN (21:30)
[2016-08-04] MEDS: SUCRALFATE (100 MG/ML) 10ML CUP PO SCH (22:49)
[2016-08-04] MEDS: metroNIDAZOLE 500 MG TAB PO SCH (22:49)
[2016-08-05 02:44] LABS: ADD UMIC YES; URINE BILIRUBIN (Dip) NEGATIVE (NEGATIVE); URINE BLOOD (Dip) TRACE (NEGATIVE); URINE COLOR LT. YELLOW (YELLOW); URINE GLUCOSE (Dip) NEGATIVE (NEGATIVE); URINE KETONES (Dip) NEGATIVE (NEGATIVE); URINE LEUKOCYTE ESTERASE (Dip) NEGATIVE (NEGATIVE); URINE NITRITE (Dip) NEGATIVE (NEGATIVE); URINE TOTAL PROTEIN (Dip) NEGATIVE (NEGATIVE); URINE UROBILINOGEN (Dip) 0.2 E.U./dL (0.1-1.0)
[2016-08-05 02:55] LABS: BACTERIA,URINE RARE; SQUAMOUS EPITHELIAL CELL,UR RARE
[2016-08-05] MEDS: PANTOPRAZOLE (EC) 40 MG TAB PO SCH ×2 (06:20→17:44)
[2016-08-05] MEDS: metroNIDAZOLE 500 MG TAB PO SCH ×3 (06:20→21:14)
[2016-08-05] MEDS: CIPROFLOXACIN 500 MG TAB PO SCH ×2 (06:20→17:44)
[2016-08-05 07:30] LABS: ADD SCAN DIFF NO
[2016-08-05 07:38] LABS: BASOPHILS % 0.3 % (0.0-2.0); EOSINOPHILS # 0.3 10^3/ul (0.0-0.5); EOSINOPHILS % 3.6 % (0.0-7.0); HEMATOCRIT 32.7 % (37.0-47.0); HEMOGLOBIN 10.9 g/dl (12.0-16.0); LYMPHOCYTES # 0.9 10^3/ul (0.8-2.9); LYMPHOCYTES % 10.1 % (15.0-51.0); MEAN CORPUSCULAR HEMOGLOBIN 30.1 pg (29.0-33.0); MEAN CORPUSCULAR HGB CONC 33.3 g/dl (32.0-37.0); MEAN CORPUSCULAR VOLUME 90.3 fl (82.0-101.0); MEAN PLATELET VOLUME 8.4 fl (7.4-10.4); MONOCYTE # 0.7 10^3/ul (0.3-0.9); MONOCYTES % 7.7 % (0.0-11.0); NEUTROPHIL # 7.1 10^3/ul (1.6-7.5); NEUTROPHILS % 77.5 % (39.0-77.0); RED BLOOD COUNT 3.62 10^6/ul (4.20-5.40); RED CELL DISTRIBUTION WIDTH 16.7 % (11.5-14.5); WHITE BLOOD COUNT 9.2 10^3/ul (4.8-10.8)
[2016-08-05 08:00] LABS: PLATELET COUNT 615 10^3/UL (140-415)
[2016-08-05 08:09] LABS: ALBUMIN 2.9 g/dl (3.3-4.9); ALBUMIN/GLOBULIN RATIO 0.87; BILIRUBIN,INDIRECT 0.6 mg/dl (0-1.1); BILIRUBIN,TOTAL 0.6 mg/dl (0.2-1.3); CALCIUM 8.8 mg/dl (8.4-10.2); CREATININE 0.56 mg/dl (0.44-1.00); POTASSIUM 3.5 mmol/L (3.5-5.1); TOTAL PROTEIN 6.2 g/dl (6.1-8.1)
[2016-08-05] MEDS: SUCRALFATE (100 MG/ML) 10ML CUP PO SCH ×4 (08:48→21:14)
[2016-08-05] MEDS: DOCUSATE SODIUM 100 MG CAP PO SCH ×2 (08:48→21:14)
--- NOTE | 2016-08-05 12:37 | CONS ---
DATE OF ADMISSION: 08/04/2016 DATE OF CONSULTATION: 08/05/2016 REHABILITATION POST ADMISSION PHYSICIAN EVALUATION REHABILITATION IMPAIRMENT CATEGORY: Debility secondary to cholecystitis requiring laparoscopic cholecystectomy in addition to rectal bleed. ACTIVE COMORBIDITIES: 1. Urinary retention. 2. Status post rectal bleeding. 3. Hypertension. 4. Hyponatremia. 5. Impairments in self-care and mobility. HISTORY OF PRESENT ILLNESS: The patient is a very pleasant 80-year-old female who was admitted to [facility] with right upper quadrant pain. Workup was consistent with acute cholecystitis, and the patient did require a laparoscopic cholecystectomy. The patient's hospital course was notable for rectal bleeding, urinary retention, hyponatremia, and significant impairments in self-care and mobility as compared to baseline. The patient has been cleared to transfer to the rehabilitation unit for comprehensive interdisciplinary rehab care. FUNCTIONAL HISTORY: Prior to recent events, she was independent in self-care tasks and mobility. Currently, she requires minimal assist for self-care and mobility tasks. SOCIAL HISTORY: The patient reports living at home and hopes to return there upon discharge. PAST MEDICAL HISTORY: History of: 1. Right breast mass. 2. Hypertension. CURRENT MEDICATIONS: 1. [place] p.r.n. 2. Protonix 40 mg p.o. b.i.d. 3. Carafate 1 g p.o. q.i.d. 4. Ciprofloxacin 500 mg p.o. b.i.d. 5. Metronidazole 500 mg p.o. q.8h. ALLERGIES: THE PATIENT WITH NO KNOWN DRUG ALLERGIES. PHYSICAL EXAMINATION: VITAL SIGNS: The patient is currently afebrile with stable vital signs. HEENT: Extraocular motions intact. Oropharynx clear. NECK: Supple. LUNGS: Clear anteriorly. CARDIAC: S1, S2. ABDOMEN: Soft, nontender, positive bowel sounds. NEUROLOGIC: She is awake and alert and she is oriented x3. She will follow simple 1-step commands. She demonstrates antigravity strength in bilateral upper extremity and lower extremity. She does have impaired dynamic balance. PLAN: The patient has been admitted for comprehensive interdisciplinary acute rehab and is anticipated to tolerate 3 hours of daily therapy in divided doses for at least 5/7 days a week. Treatment plan will include: 1. Physical therapy to focus on bed mobility, transfers, and household ambulation with the goal of having the patient reach a modified independent level. 2. Occupational therapy to focus on hygiene, grooming, dressing, bathing, and toileting activities with goal of having the patient reach a standby assist level. 3. Rehabilitation nursing for carryover of therapeutic interventions with the goal of continent of bowel and bladder, and the goal of pain adequately managed on oral medications. ESTIMATED LENGTH OF STAY: 10 days. DISPOSITION GOAL: Home. Rehabilitation Barrier: weakness Intervention for barrier: Interdisciplinary rehab I acknowledge that I performed a full physical examination on this patient within 24 hours of admission to the rehabilitation unit and believe the patient is a good candidate for comprehensive interdisciplinary rehab care and is anticipated to make reasonable goals in a reasonable period of time as outlined above. Dictated By: GENESIS REYES/CHIARA Conf#: [id number] DID#: [id number] MTDD
--- NOTE | 2016-08-05 15:19 | CONS ---
DATE OF ADMISSION: 08/04/2016 DATE OF CONSULTATION: 08/05/2016 TYPE OF CONSULTATION: Internal Medicine. HISTORY OF PRESENT ILLNESS: This is an 80-year-old lady with a history of hypertension, originally admitted to [facility] in early July, found to have acute cholecystitis following workup for right upper quadrant pain. She underwent laparoscopic cholecystectomy and course was co mplicated by rectal bleeding, urinary retention and hyponatremia. She is now transferred to acute ehab unit for continuing care which she continues to remain stable with no events other than general ized weakness, getting aggressive physical therapy. PAST MEDICAL HISTORY: Includes a history of breast mass, hypertension. MEDICATIONS: Per chart. ALLERGIES: NONE. SOCIAL HISTORY: Nonsmoker, no alcohol, no history of drug use. FAMILY HISTORY: Noncontributory. SYSTEMS REVIEW: A 12-point review of systems was negative other than that mentioned above. PHYSICAL EXAMINATION: GENERAL: Well-nourished, well-developed lady, comfortable at rest, no acute distress. VITAL SIGNS: Currently afebrile, temperature 98, pulse 93, blood pressure 148/87, O2 saturation 97 % on room air. NECK: Supple, no JVD or lymphadenopathy. CARDIAC: S1, S2, no added sounds or murmurs. CHEST: Diminished air entry bilaterally. ABDOMEN: Soft, nontender. No guarding or rebound. EXTREMITIES: No cyanosis, clubbing, edema. NEUROLOGIC: Generalized weakness. LABORATORY DATA: White count 9.2, hemoglobin 10.9, platelets 6.5. Chemistry within normal limits. IMPRESSION AND PLAN: 1. Recent laparoscopic cholecystectomy. 2. History of hypertension. 3. Postop gastrointestinal bleed. The patient will require 1. Continue physical therapy. 2. Deep venous thrombosis and gastrointestinal prophylaxis. Dictated By: NBA BUENROSTRO/CHIARA Conf#: [id number] DID#: [id number]
[2016-08-05 20:00] VITALS: BP 123/76; RESP 18
[2016-08-05] MEDS: SENNA TAB PO SCH (21:14)
[2016-08-06] MEDS: PANTOPRAZOLE (EC) 40 MG TAB PO SCH ×3 (07:00→17:16)
[2016-08-06] MEDS: CIPROFLOXACIN 500 MG TAB PO SCH ×2 (07:00→17:16)
[2016-08-06] MEDS: metroNIDAZOLE 500 MG TAB PO SCH ×3 (07:00→20:19)
[2016-08-06 08:00] VITALS: BP 117/70; PULSE 80; RESP 18
[2016-08-06] MEDS: DOCUSATE SODIUM 100 MG CAP PO SCH ×2 (09:03→20:15)
[2016-08-06] MEDS: SUCRALFATE (100 MG/ML) 10ML CUP PO SCH ×4 (09:03→20:15)
--- NOTE | 2016-08-06 12:27 | CONS ---
Date/Time of Note Date/Time of Note DATE: 08/06/16 TIME: 12:25 Consult Date/Type/Reason Admit Date/Time Aug 04, 2016 at 19:59 Initial Consult Date Subjective Motivated, in good spirits Objective pulm-cta abd-soft sba ambulation Vital Signs Date Time Temp Pulse Resp B/P Pulse Ox O2 Delivery O2 Flow Rate FiO2 08/06/16 08:00 98.0 80 18 117/70 95 Room Air Intake and Output 08/05/16 08/05/16 08/06/16 15:00 23:00 07:00 Intake Total 950 ml 320 ml Output Total 351 ml 2 ml Balance 599 ml 318 ml Results/Medications Result Diagram: 08/05/1610 08/05/16 06 Medications Current Medications Ciprofloxacin (Cipro) 500 mg BID@ PO Last administered on 08/06/16 07:00 ; Admin Dose 500 MG; Start 08/05/16 at 06:00 Metronidazole (Flagyl) 500 mg Q8 PO Last administered on 08/06/16 07:00; Admin Dose 500 MG; Start 08/04/16 at 22:00; Stop 08/11/16 at 14:01 Pantoprazole (Protonix Tab) 40 mg BID@ PO Last administered on 08/06/16 07:00; Admin Dose 40 MG; Start 08/05/16 at 06:00 Acetaminophen/ Hydrocodone Bitart ([place] (5/325)) 1 tab Q6H PRN PO MODERATE PAIN LEVEL 4-6; Start 08/04/16 at 21:16 Docusate Sodium (Colace) 100 mg BID PO Last administered on 08/06/16 09:03; Admin Dose 100 MG; Start 08/05/16 at 09:00 Senna (Senokot) 1 tab HS PO Last administered on 08/05/16 21:14; Admin Dose 1 TAB; Start 08/05/16 at 21:00 Magnesium Hydroxide (Milk Of Mag) 30 ml BID PRN PO CONSTIPATION; Start at 21:30 Lactulose (Enulose) 20 gm DAILY PRN PO CONSTIPATION; Start 08/04/16 at 21:30 Bisacodyl (Dulcolax Supp) 10 mg DAILY PRN [place] CONSTIPATION; Start 08/04/16 at 21 :30 Sucralfate (Carafate Susp) 1 gm QID PO Last administered on 08/06/16t 09:03; Admin Dose 1 GM; Start 08/04/16 at 21:00 Assessment/Plan Additional Assessment/Plan Rehab- Debility secondary to cholecystitis requiring laparoscopic cholecystectomy in addition to rectal bleed. Tolerating rehab program well. Anticipate dc home Thursday Urinary retention-improved Status post rectal bleeding. Hypertension. Hyponatremia.- resolved GENESIS HUTSON MD Aug 06, 2016 12:27
--- NOTE | 2016-08-06 16:27 | CONS ---
Date/Time of Note Date/Time of Note DATE: 08/06/16 TIME: 16:25 Consult Date/Type/Reason Admit Date/Time Aug 04, 2016 at 19:59 Initial Consult Date Type of Consultation: internal medicine Subjective Patient comfortable this morning no new events Objective Vital Signs Date Time Temp Pulse Resp B/P Pulse Ox O2 Delivery O2 Flow Rate FiO2 08/06/16 08:00 98.0 80 18 117/70 95 Room Air Intake and Output 08/05/16 08/05/16 08/06/16 15:00 23:00 07:00 Intake Total 950 ml 320 ml Output Total 351 ml 2 ml Balance 599 ml 318 ml Exam PHYSICAL EXAMINATION: GENERAL: Well-nourished, well-developed lady, comfortable at rest, no acute distress. VITAL SIGNS: As above NECK: Supple, no JVD or lymphadenopathy. CARDIAC: S1, S2, no added sounds or murmurs. CHEST: Diminished air entry bilaterally. ABDOMEN: Soft, nontender. No guarding or rebound. EXTREMITIES: No cyanosis, clubbing, edema. NEUROLOGIC: Generalized weakness. Results/Medications Result Diagram: 08/05/16 0610 08/05/16 0610 Medications Current Medications Ciprofloxacin (Cipro) 500 mg BID@18 PO Last administered on 08/06/16 07:00 ; Admin Dose 500 MG; Start 08/05/16 at 06:00 Metronidazole (Flagyl) 500 mg Q8 PO Last administered on 08/06/16 13:02; Admin Dose 500 MG; Start 08/04/16 at 22:00; Stop 08/11/16 at 14:01 Pantoprazole (Protonix Tab) 40 mg BID@18 PO Last administered on 08/06/16 07:00; Admin Dose 40 MG; Start 08/05/16 at 06:00 Acetaminophen/ Hydrocodone Bitart ([place] (5/325)) 1 tab Q6H PRN PO MODERATE PAIN LEVEL 4-6; Start 08/04/16 at 21:16 Docusate Sodium (Colace) 100 mg BID PO Last administered on 08/06/16 09:03; Admin Dose 100 MG; Start 08/05/16 at 09:00 Senna (Senokot) 1 tab HS PO Last administered on 08/05/16 21:14; Admin Dose 1 TAB; Start 08/05/16 at 21:00 Magnesium Hydroxide (Milk Of Mag) 30 ml BID PRN PO CONSTIPATION; Start at 21:30 Lactulose (Enulose) 20 gm DAILY PRN PO CONSTIPATION; Start 08/04/16 at 21:30 Bisacodyl (Dulcolax Supp) 10 mg DAILY PRN [place] CONSTIPATION; Start 08/04/16 at 21 :30 Sucralfate (Carafate Susp) 1 gm QID PO Last administered on 08/06/16t 13:02; Admin Dose 1 GM; Start 08/04/16 at 21:00 Assessment/Plan Chief Complaint/Hosp Course IMPRESSION 1. Recent laparoscopic cholecystectomy. 2. History of hypertension. 3. Postop gastrointestinal bleed. PLAN 1. Continue physical therapy. 2. Deep venous thrombosis and gastrointestinal prophylaxis. Problems: NBA STRICKLAND MD, [facility] Aug 06, 2016 16:27
[2016-08-06 20:00] VITALS: BP 110/63; RESP 18
[2016-08-06] MEDS: SENNA TAB PO SCH (20:15)
[2016-08-07] MEDS: metroNIDAZOLE 500 MG TAB PO SCH ×3 (06:15→21:29)
[2016-08-07] MEDS: CIPROFLOXACIN 500 MG TAB PO SCH ×2 (06:15→17:36)
[2016-08-07] MEDS: PANTOPRAZOLE (EC) 40 MG TAB PO SCH ×2 (06:15→17:36)
[2016-08-07 07:30] VITALS: BP 120/70; RESP 18
[2016-08-07] MEDS: DOCUSATE SODIUM 100 MG CAP PO SCH ×2 (09:08→20:46)
[2016-08-07] MEDS: SUCRALFATE (100 MG/ML) 10ML CUP PO SCH ×4 (09:08→20:46)
--- NOTE | 2016-08-07 10:44 | PN ---
Date/Time of Note Date/Time of Note DATE: 08/07/16 TIME: 10:37 Assessment/Plan VTE Prophylaxis VTE Prophylaxis Intervention: ambulation, other Lines/Catheters IV [facility] [place] Urinary Cath still in place: No Assessment/Plan Assessment/Plan 1. Debility in the setting of cholecystitis s/p laparoscopic cholecystectomy, and GI bleed, with impaired mobility/gait/ADLs. Continue PT/OT. SBA for bed mobility and transfers. Continue medical management per GI and general surgery. 2. Urinary retention. Continue to monitor PVRs. Continue bladder program. 3. Hypertension. BP Controlled off antihypertensive medications, continue to monitor. 4. Anemia. Continue to monitor hemoglobin/hematocrit, medial management per GI and internal medicine. Subjective 24 Hr Interval Summary Free Text/Dictation Rehab progress note Subjective: No acute complaints. ROS: Denies chest pain, no shortness of breath, no abdominal pain, no nausea, no vomiting, no dysuria, no chills, no constipation. Exam/Review of Systems Vital Signs Vitals Vital Signs Date Time Temp Pulse Resp B/P Pulse Ox O2 Delivery O2 Flow Rate FiO2 08/07/16 07:30 98.5 76 18 120/70 96 08/06/16 08:00 Room Air Intake and Output 08/06/16 08/06/16 08/07/16 15:00 23:00 07:00 Intake Total 850 ml 250 ml Output Total 200 ml Balance 650 ml 250 ml Exam General: Awake, alert, no acute distress CV: Regular rate, s1s2 Lungs: Clear to auscultation, no wheezing or crackles Abdomen soft, nontender Extremities without cyanosis, no edema Neuro: Antigravity strength BUE/BLE. Follows simple commands. Results Result Diagram: 08/05/16 0610 08/05/16 0610 Medications Medications Current Medications Ciprofloxacin (Cipro) 500 mg BID@,18 PO Last administered on 08/07/16 06:15 ; Admin Dose 500 MG; Start 08/05/16 at 06:00 Metronidazole (Flagyl) 500 mg Q8 PO Last administered on 08/07/16 06:15; Admin Dose 500 MG; Start 08/04/16 at 22:00; Stop 08/11/16 at 14:01 Pantoprazole (Protonix Tab) 40 mg BID@,18 PO Last administered on 08/07/16 06:15; Admin Dose 40 MG; Start 08/05/16 at 06:00 Acetaminophen/ Hydrocodone Bitart ([place] (5/325)) 1 tab Q6H PRN PO MODERATE PAIN LEVEL 4-6; Start 08/04/16 at 21:16 Docusate Sodium (Colace) 100 mg BID PO Last administered on 08/07/16 09:08; Admin Dose 100 MG; Start 08/05/16 at 09:00 Senna (Senokot) 1 tab HS PO Last administered on 08/06/16 20:15; Admin Dose 1 TAB; Start 08/05/16 at 21:00 Magnesium Hydroxide (Milk Of Mag) 30 ml BID PRN PO CONSTIPATION; Start at 21:30 Lactulose (Enulose) 20 gm DAILY PRN PO CONSTIPATION; Start 08/04/16 at 21:30 Bisacodyl (Dulcolax Supp) 10 mg DAILY PRN [place] CONSTIPATION; Start 08/04/16 at 21 :30 Sucralfate (Carafate Susp) 1 gm QID PO Last administered on 08/07/16 09:08; Admin Dose 1 GM; Start 08/04/16 at 21:00 MINGO CUEVAS Aug 07, 2016 10:44
--- NOTE | 2016-08-07 12:15 | CONS ---
Date/Time of Note Date/Time of Note DATE: 08/07/16 TIME: 12:15 Consult Date/Type/Reason Admit Date/Time Aug 04, 2016 at 19:59 Type of Consultation: internal medicine Subjective Patient comfortable this morning no new events Objective Vital Signs Date Time Temp Pulse Resp B/P Pulse Ox O2 Delivery O2 Flow Rate FiO2 08/07/16 07:30 98.5 76 18 120/70 96 08/06/16 08:00 Room Air Intake and Output 08/06/16 08/06/16 08/07/16 15:00 23:00 07:00 Intake Total 850 ml 250 ml Output Total 200 ml Balance 650 ml 250 ml Exam PHYSICAL EXAMINATION: GENERAL: Well-nourished, well-developed lady, comfortable at rest, no acute distress. VITAL SIGNS: As above NECK: Supple, no JVD or lymphadenopathy. CARDIAC: S1, S2, no added sounds or murmurs. CHEST: Diminished air entry bilaterally. ABDOMEN: Soft, nontender. No guarding or rebound. EXTREMITIES: No cyanosis, clubbing, edema. NEUROLOGIC: Generalized weakness. Results/Medications Result Diagram: 08/05/16 0610 08/05/16 0610 Medications Current Medications Ciprofloxacin (Cipro) 500 mg BID@18 PO Last administered on 08/07/16 06:15 ; Admin Dose 500 MG; Start 08/05/16 at 06:00 Metronidazole (Flagyl) 500 mg Q8 PO Last administered on 08/07/16 06:15; Admin Dose 500 MG; Start 08/04/16 at 22:00; Stop 08/11/16 at 14:01 Pantoprazole (Protonix Tab) 40 mg BID@18 PO Last administered on 08/07/16 06:15; Admin Dose 40 MG; Start 08/05/16 at 06:00 Acetaminophen/ Hydrocodone Bitart ([place] (5/325)) 1 tab Q6H PRN PO MODERATE PAIN LEVEL 4-6; Start 08/04/16 at 21:16 Docusate Sodium (Colace) 100 mg BID PO Last administered on 08/07/16 09:08; Admin Dose 100 MG; Start 08/05/16 at 09:00 Senna (Senokot) 1 tab HS PO Last administered on 08/06/16 20:15; Admin Dose 1 TAB; Start 08/05/16 at 21:00 Magnesium Hydroxide (Milk Of Mag) 30 ml BID PRN PO CONSTIPATION; Start at 21:30 Lactulose (Enulose) 20 gm DAILY PRN PO CONSTIPATION; Start 08/04/16 at 21:30 Bisacodyl (Dulcolax Supp) 10 mg DAILY PRN [place] CONSTIPATION; Start 08/04/16 at 21 :30 Sucralfate (Carafate Susp) 1 gm QID PO Last administered on 08/07/16t 09:08; Admin Dose 1 GM; Start 08/04/16 at 21:00 Assessment/Plan Chief Complaint/Hosp Course IMPRESSION 1. Recent laparoscopic cholecystectomy. 2. History of hypertension. 3. Postop gastrointestinal bleed. PLAN 1. Continue physical therapy. 2. Deep venous thrombosis and gastrointestinal prophylaxis. Problems: NBA STRICKLAND [facility] Aug 07, 2016 12:15
[2016-08-07 19:27] VITALS: BP 132/78; RESP 18
[2016-08-07] MEDS: SENNA TAB PO SCH (20:47)
[2016-08-08] MEDS: metroNIDAZOLE 500 MG TAB PO SCH ×3 (05:29→21:38)
[2016-08-08] MEDS: CIPROFLOXACIN 500 MG TAB PO SCH ×2 (05:29→17:33)
[2016-08-08] MEDS: PANTOPRAZOLE (EC) 40 MG TAB PO SCH ×2 (05:29→17:33)
[2016-08-08 07:30] VITALS: BP 118/67; RESP 18
[2016-08-08] MEDS: SUCRALFATE (100 MG/ML) 10ML CUP PO SCH ×4 (08:17→20:30)
[2016-08-08] MEDS: DOCUSATE SODIUM 100 MG CAP PO SCH ×2 (08:17→20:30)
--- NOTE | 2016-08-08 12:21 | PN ---
Date/Time of Note Date/Time of Note DATE: 08/08/16 TIME: 12:14 Assessment/Plan VTE Prophylaxis VTE Prophylaxis Intervention: other Lines/Catheters [facility]from [facility] Saline Lock Urinary Cath still in place: No Assessment/Plan Assessment/Plan 1. Debility in the setting of cholecystitis s/p laparoscopic cholecystectomy, and GI bleed, with impaired mobility/gait/ADLs. Continue PT/OT. SBA for gait 300ft on even surfaces, 150ft on uneven surfaces. Negotiating 12 stairs with 1 rail with SBA. Continue medical management per GI and general surgery. Remove surgical giorgio today. 2. Postop Urinary retention. Continue bladder program, timed voidings every 2 hours while awake. Continue to monitor PVRs, I/O cath as needed. Urology consulted for further recommendations. 3. Hypertension. BP Controlled off antihypertensive medications, continue to monitor. 4. Anemia. Continue to monitor hemoglobin/hematocrit, medial management per GI and internal medicine. Subjective 24 Hr Interval Summary Free Text/Dictation Rehab progress note Subjective: Nursing reports catheterized for 500cc earlier this morning. Patient without new complaints. ROS: Denies dysuria, no chills, no abdominal pain, no constipation, no headache , no chest pain, no shortness of breath. Exam/Review of Systems Vital Signs Vitals Vital Signs Date Time Temp Pulse Resp B/P Pulse Ox O2 Delivery O2 Flow Rate FiO2 08/08/16 07:30 98.4 79 18 118/67 98 08/06/16 08:00 Room Air Intake and Output 08/07/16 08/07/16 08/08/16 15:00 23:00 07:00 Intake Total 420 ml 200 ml Output Total 850 ml Balance 420 ml -650 ml Exam General: Awake, alert, no acute distress CV: Regular rate, s1s2 Lungs: Clear to auscultation, no wheezing Abdomen soft, nontender, surgical giorgio in place c/d/i, no active drainage Extremities without cyanosis, no new swelling Neuro: Antigravity strength BUE/BLE. No new sensory changes. Results Result Diagram: 08/05/16 0610 08/05/16 0610 Medications Medications Current Medications Ciprofloxacin (Cipro) 500 mg BID@06,18 PO Last administered on 08/08/16t 05:29 ; Admin Dose 500 MG; Start 08/05/16 at 06:00 Metronidazole (Flagyl) 500 mg Q8 PO Last administered on 08/08/16 05:29; Admin Dose 500 MG; Start 08/04/16 at 22:00; Stop 08/11/16 at 14:01 Pantoprazole (Protonix Tab) 40 mg BID@06,18 PO Last administered on 08/08/16 05:29; Admin Dose 40 MG; Start 08/05/16 at 06:00 Acetaminophen/ Hydrocodone Bitart ([place] (5/325)) 1 tab Q6H PRN PO MODERATE PAIN LEVEL 4-6; Start 08/04/16 at 21:16 Docusate Sodium (Colace) 100 mg BID PO Last administered on 08/08/16 08:17; Admin Dose 100 MG; Start 08/05/16 at 09:00 Senna (Senokot) 1 tab HS PO Last administered on 08/07/16 20:47; Admin Dose 1 TAB; Start 08/05/16 at 21:00 Magnesium Hydroxide (Milk Of Mag) 30 ml BID PRN PO CONSTIPATION; Start at 21:30 Lactulose (Enulose) 20 gm DAILY PRN PO CONSTIPATION; Start 08/04/16 at 21:30 Bisacodyl (Dulcolax Supp) 10 mg DAILY PRN [place] CONSTIPATION; Start 08/04/16 at 21 :30 Sucralfate (Carafate Susp) 1 gm QID PO Last administered on 08/08/16 08:17; Admin Dose 1 GM; Start 08/04/16 at 21:00 MINGO CUEVAS Aug 08, 2016 12:20
--- NOTE | 2016-08-08 15:16 | CONS ---
Date/Time of Note Date/Time of Note DATE: 08/08/16 TIME: 15:14 Consult Date/Type/Reason Admit Date/Time Aug 04, 2016 at 19:59 Type of Consultation: internal medicine Subjective Patient had urinary retention yesterday requiring in and out [place] catheter Improved urine output today. Pending urology evaluation. Objective Vital Signs Date Time Temp Pulse Resp B/P Pulse Ox O2 Delivery O2 Flow Rate FiO2 08/08/16 07:30 98.4 79 18 118/67 98 08/06/16 08:00 Room Air Intake and Output 08/07/16 08/07/16 08/08/16 15:00 23:00 07:00 Intake Total 420 ml 200 ml Output Total 850 ml Balance 420 ml -650 ml Exam PHYSICAL EXAMINATION: GENERAL: Well-nourished, well-developed lady, comfortable at rest, no acute distress. VITAL SIGNS: As above NECK: Supple, no JVD or lymphadenopathy. CARDIAC: S1, S2, no added sounds or murmurs. CHEST: Diminished air entry bilaterally. ABDOMEN: Soft, nontender. No guarding or rebound. EXTREMITIES: No cyanosis, clubbing, edema. NEUROLOGIC: Generalized weakness. Results/Medications Result Diagram: 08/05/16 0610 08/05/16 0610 Medications Current Medications Ciprofloxacin (Cipro) 500 mg BID@,18 PO Last administered on 08/08/16 05:29 ; Admin Dose 500 MG; Start 08/05/16 at 06:00 Metronidazole (Flagyl) 500 mg Q8 PO Last administered on 08/08/16 14:06; Admin Dose 500 MG; Start 08/04/16 at 22:00; Stop 08/11/16 at 14:01 Pantoprazole (Protonix Tab) 40 mg BID@,18 PO Last administered on 08/08/16 05:29; Admin Dose 40 MG; Start 08/05/16 at 06:00 Acetaminophen/ Hydrocodone Bitart ([place] (5/325)) 1 tab Q6H PRN PO MODERATE PAIN LEVEL 4-6; Start 08/04/16 at 21:16 Docusate Sodium (Colace) 100 mg BID PO Last administered on 08/08/16 08:17; Admin Dose 100 MG; Start 08/05/16 at 09:00 Senna (Senokot) 1 tab HS PO Last administered on 08/07/16 20:47; Admin Dose 1 TAB; Start 08/05/16 at 21:00 Magnesium Hydroxide (Milk Of Mag) 30 ml BID PRN PO CONSTIPATION; Start at 21:30 Lactulose (Enulose) 20 gm DAILY PRN PO CONSTIPATION; Start 08/04/16 at 21:30 Bisacodyl (Dulcolax Supp) 10 mg DAILY PRN [place] CONSTIPATION; Start 08/04/16 at 21 :30 Sucralfate (Carafate Susp) 1 gm QID PO Last administered on 08/08/16 12:17; Admin Dose 1 GM; Start 08/04/16 at 21:00 Assessment/Plan Chief Complaint/Hosp Course IMPRESSION 1. Recent laparoscopic cholecystectomy. 2. History of hypertension. 3. Postop gastrointestinal bleed. 4. Recent UTI now with urinary retention PLAN 1. Continue physical therapy. 2. Deep venous thrombosis and gastrointestinal prophylaxis. 3. Repeat UA C&S, urology recommendations, we'll consider stopping ciprofloxacin urine cultures negative. Problems: NBA STRICKLAND MD, [facility] Aug 08, 2016 15:16
[2016-08-08 20:23] VITALS: BP 115/64; RESP 18
[2016-08-08] MEDS: SENNA TAB PO SCH (20:30)
[2016-08-09] MEDS: PANTOPRAZOLE (EC) 40 MG TAB PO SCH ×2 (05:41→18:08)
[2016-08-09] MEDS: metroNIDAZOLE 500 MG TAB PO SCH (05:41)
[2016-08-09] MEDS: CIPROFLOXACIN 500 MG TAB PO SCH (05:41)
--- NOTE | 2016-08-09 06:17 | CONS ---
DATE OF ADMISSION: 08/04/2016 DATE OF CONSULTATION: 08/08/2016 REQUESTING PHYSICIAN: NBA STRICKLAND MD Dear Dr. Strickland: Thank you for asking me to see this patient in urological consultation. HISTORY OF PRESENT ILLNESS: This is an 80-year-old [place] female who initially presented to [facility] Emergency Room with right upper quadrant pain, underwent a CT scan and that showed acute cholecystitis. Therefore, she underwent laparoscopic cholecystectomy. Postop she had a drop in her hemoglobin and then underwent a colonoscopy as well as an upper endoscopy and was foun d to have a large duodenal ulcer. The patient also did have urinary retention and she had to be cat heterized on multiple occasions. She was then transferred to the rehab unit for further care. She still, however, has a high postvoid residual. Therefore, a urological consultation was requested. PAST MEDICAL HISTORY: Includes a history of hypertension. PAST SURGICAL HISTORY: She had a right mastectomy about 2 to 3 years ago at [facility], an d also she has the recent cholecystectomy. She is a 1, para 0. She had a son who . ALLERGIES: THE PATIENT HAS NO KNOWN DRUG ALLERGIES. SOCIAL HISTORY: She does not smoke, does not drink alcohol, and there is no history of drug abuse. MEDICATIONS: She is presently on include: 1. Senna. 2. Colace. 3. Cipro. 4. Protonix. 5. ____ 6. Milk of magnesia p.r.n. 7. Lactulose p.r.n. 8. Dulcolax suppository p.r.n. 9. [place] p.r.n. 10. Carafate suspension 1 gram q.i.d. PHYSICAL EXAMINATION: GENERAL: Reveals an elderly female, 80 years old. She weighs about 54 kilograms. She is 60 inches tall. VITAL SIGNS: Temperature is 98.2, pulse 89, respiration 18, blood pressure 115/64. CHEST: The patient does have a scar from the right mastectomy and she herself denies having cancer i n the breast, but she does not know exactly why the breast was removed; she probably had a mass and when it was removed, it was felt maybe it was benign. She denies undergoing any radiation or chemot herapy for that. ABDOMEN: She is status post laparoscopic cholecystectomy and the abdomen is soft. There is no abdom inal mass palpable. PELVIC: Revealed atrophic vaginitis. RECTAL: There is no sign of much of a constipation. LABORATORY DATA: Her CBC shows a white count of 9.2, hemoglobin 10.9, hematocrit 32.7. BUN is 9, c reatinine 0.56. Electrolytes are normal. Urine culture is showing yeast. IMPRESSION: High postvoid residual urinary tract infection. The patient has a recent history of du odenal ulcer. Therefore one cannot try urecholine on her because that may trigger aggravation of he r ulcer. Therefore, hopefully, as she starts moving around and getting more active, she will be abl e to urinate and empty her bladder better. In the meantime, we shall continue to check her postvoid residual and do straight catheterization for a PVR of over 300. If she cannot void, do a straight c atheterization for bladder volume of 500 or more. I will follow her urological problem with you. I do thank you for allowing me to help in her care. Dictated By: ABRIL COLON MD BB/CHIARA Conf#: [id number] DID#: [id number] CC: NBA STRICKLAND MD;*EndCC*
[2016-08-09 07:23] LABS: ADD SCAN DIFF NO
[2016-08-09 07:30] LABS: BASOPHILS % 0.5 % (0.0-2.0); EOSINOPHILS # 0.4 10^3/ul (0.0-0.5); EOSINOPHILS % 4.9 % (0.0-7.0); HEMATOCRIT 35.4 % (37.0-47.0); HEMOGLOBIN 11.1 g/dl (12.0-16.0); LYMPHOCYTES # 1.3 10^3/ul (0.8-2.9); LYMPHOCYTES % 18.1 % (15.0-51.0); MEAN CORPUSCULAR HEMOGLOBIN 28.8 pg (29.0-33.0); MEAN CORPUSCULAR HGB CONC 31.4 g/dl (32.0-37.0); MEAN CORPUSCULAR VOLUME 91.9 fl (82.0-101.0); MEAN PLATELET VOLUME 8.8 fl (7.4-10.4); MONOCYTE # 0.7 10^3/ul (0.3-0.9); MONOCYTES % 9.8 % (0.0-11.0); NEUTROPHIL # 4.9 10^3/ul (1.6-7.5); NEUTROPHILS % 66.2 % (39.0-77.0); PLATELET COUNT 605 10^3/UL (140-415); RED BLOOD COUNT 3.85 10^6/ul (4.20-5.40); RED CELL DISTRIBUTION WIDTH 15.9 % (11.5-14.5); WHITE BLOOD COUNT 7.4 10^3/ul (4.8-10.8)
[2016-08-09 07:47] LABS: POTASSIUM 3.4 mmol/L (3.5-5.1)
[2016-08-09 07:50] LABS: CREATININE 0.59 mg/dl (0.44-1.00); PHOSPHORUS 3.6 mg/dl (2.5-4.9)
[2016-08-09 07:51] LABS: CALCIUM 8.7 mg/dl (8.4-10.2); MAGNESIUM 2.1 mg/dl (1.7-2.5)
[2016-08-09] MEDS: SUCRALFATE (100 MG/ML) 10ML CUP PO SCH ×4 (08:55→21:31)
[2016-08-09] MEDS: DOCUSATE SODIUM 100 MG CAP PO SCH ×2 (08:55→21:00)
--- NOTE | 2016-08-09 12:00 | PN ---
DATE: 08/09/2016 MEDICINE PROGRESS NOTE TIME: 10:55 a.m. SUBJECTIVE: Ms. Kan doing very well. Denies any shortness of breath, abdominal pain, nausea, vomiting. Able to eat well. PHYSICAL EXAMINATION: GENERAL: Elderly lady, awake, alert, currently in no distress. VITAL SIGNS: Temperature is 98.4 degrees Fahrenheit, heart rate of 80 per minute, respiratory rate is 18 per minute, blood pressure is 116/68, O2 sat 98% on room air. HEENT: Supple. NECK: No JVD, no lymphadenopathy, midline trachea, no thyromegaly, pharynx is clear. CHEST: Clear to auscultation. HEART: S1, S2 audible, no murmurs, regular rhythm. ABDOMEN: Soft, nontender, nondistended. No organomegaly. Bowel sounds audible. EXTREMITIES: No peripheral edema. NEUROLOGIC: No focal deficit. MEDICATIONS: Reviewed. The patient is on: 1. Ciprofloxacin 500 mg b.i.d. 2. Hydrocodone on a p.r.n. basis. 3. Flagyl 500 mg q.8h. 4. Protonix 40 mg orally daily. 5. Carafate 1 gram q.i.d. ASSESSMENT: 1. Patient admitted for laparoscopic cholecystectomy, doing very well. 2. History of hypertension. 3. Postop gastrointestinal bleed with interval resolution. 4. Urinary tract infection. PLAN: Continue current treatment. Continue antibiotics. Dictated By: TESSY SANCHEZ/CHIARA Conf#: [id number] DID#: [id number]
[2016-08-09] MEDS ORDERED: POTASSIUM CHLORIDE (SR) 20 MEQ TAB PO STA (13:25)
--- NOTE | 2016-08-09 13:37 | PN ---
Date/Time of Note Date/Time of Note DATE: 08/09/16 TIME: 13:36 Assessment/Plan VTE Prophylaxis VTE Prophylaxis Intervention: ambulation, other Lines/Catheters [facility]from [facility] Saline Lock Urinary Cath still in place: No Assessment/Plan Assessment/Plan 1. Debility in the setting of cholecystitis s/p laparoscopic cholecystectomy, and GI bleed, with impaired mobility/gait/ADLs. Continue PT/OT. Bed mobility and transfers improving, now supervision level. Continue medical management per GI and general surgery. 2. Postop Urinary retention. Continue bladder program, timed voidings. Continue to monitor PVRs, I/O cath as needed. Urology recs appreciated. 3. Hypertension. BP Controlled, continue to monitor. 4. Anemia. Continue to monitor hemoglobin/hematocrit, stable on labs today. Continue medial management per GI and internal medicine. 5. Hypokalemia. PO Supplement ordered. Will repeat BMP tomorrow. Subjective 24 Hr Interval Summary Free Text/Dictation Rehab progress note Subjective: No acute complaints. Nursing reports required I/O cath earlier this morning for 450cc. ROS: Denies chest pain, no shortness of breath, no dysuria, no chills, no abdominal pain, no constipation. Exam/Review of Systems Vital Signs Vitals Vital Signs Date Time Temp Pulse Resp B/P Pulse Ox O2 Delivery O2 Flow Rate FiO2 08/08/16 20:23 98.2 89 18 115/64 96 08/06/16 08:00 Room Air Intake and Output 08/08/16 08/08/16 08/09/16 15:00 23:00 07:00 Intake Total 360 ml 300 ml Output Total 750 ml Balance 360 ml -450 ml Exam General: Awake, alert, no acute distress CV: Regular rate and rhythm, s1s2 audible Lungs: Clear to auscultation, no wheezing or crackles Abdomen soft, nontender, bowel sounds present Extremities without cyanosis, no new swelling Neuro: No new focal changes. Follows simple commands. Results Result Diagram: 08/09/16 0608 08/09/16 0608 Results 24 hrs Laboratory Tests Test 08/09/16 06:08 White Blood Count 7.4 Red Blood Count 3.85 L Hemoglobin 11.1 L Hematocrit 35.4 L Mean Corpuscular Volume 91.9 Mean Corpuscular Hemoglobin 28.8 L Mean Corpuscular Hemoglobin Concent 31.4 L Red Cell Distribution Width 15.9 H Platelet Count 605 H Mean Platelet Volume 8.8 Neutrophils % 66.2 Lymphocytes % 18.1 Monocytes % 9.8 Eosinophils % 4.9 Basophils % 0.5 Nucleated Red Blood Cells % 0.0 Neutrophils # 4.9 Lymphocytes # 1.3 Monocytes # 0.7 Eosinophils # 0.4 Basophils # 0.0 Nucleated Red Blood Cells # 0.0 Sodium Level 141 Potassium Level 3.4 L Chloride Level 104 Carbon Dioxide Level 27 Anion Gap 13 Blood Urea Nitrogen 7 Creatinine 0.59 Glucose Level 84 Calcium Level 8.7 Phosphorus Level 3.6 Magnesium Level 2.1 Medications Medications Current Medications Pantoprazole (Protonix Tab) 40 mg BID@,18 PO Last administered on 08/09/16 05:41; Admin Dose 40 MG; Start 08/05/16 at 06:00 Acetaminophen/ Hydrocodone Bitart ([place] (5/325)) 1 tab Q6H PRN PO MODERATE PAIN LEVEL 4-6; Start 08/04/16 at 21:16 Docusate Sodium (Colace) 100 mg BID PO Last administered on 08/09/16 08:55; Admin Dose 100 MG; Start 08/05/16 at 09:00 Senna (Senokot) 1 tab HS PO Last administered on 08/08/16 20:30; Admin Dose 1 TAB; Start 08/05/16 at 21:00 Magnesium Hydroxide (Milk Of Mag) 30 ml BID PRN PO CONSTIPATION; Start at 21:30 Lactulose (Enulose) 20 gm DAILY PRN PO CONSTIPATION; Start 08/04/16 at 21:30 Bisacodyl (Dulcolax Supp) 10 mg DAILY PRN [place] CONSTIPATION; Start 08/04/16 at 21 :30 Sucralfate (Carafate Susp) 1 gm QID PO Last administered on 08/09/16 13:15; Admin Dose 1 GM; Start 08/04/16 at 21:00 MINGO CUEVAS Aug 09, 2016 13:37
--- NOTE | 2016-08-09 14:08 | PN ---
DATE: 08/09/2016 SUBJECTIVE: Incomplete bladder emptying. The patient, however, is feeling comfortable. OBJECTIVE: VITAL SIGNS: Her temperature is 98.2, pulse is 89, respirations 18, blood pressure 115/64. ABDOMEN: Soft. She does have the scars from her recent cholecystectomy. During last night she voided about 100 mL and her postvoid residual was over 300; therefore, a strai ght catheterization was done on 485 mL was drained. During the day today she voided 150 and her pos tvoid residual was around 40 mL; therefore, no need to do an in and out catheterization for her. Si nce the patient has also a duodenal ulcer, we could not give her urecholine. Therefore, my recommen dation, again, is to have her urinate and encourage her to urinate a second time even though she may not have the urge to do so. Dictated By: ABRIL SUH/CHIARA Conf#: [id number] DID#: [id number]
--- NOTE | 2016-08-09 19:35 | RADRPT ---
PROCEDURE: XR Abdomen. CLINICAL INDICATION: Abdomen pain. TECHNIQUE: AP supine abdomen x-ray. COMPARISON: CT scan of the abdomen and pelvis dated fourth 13:17. FINDINGS: The bowel gas pattern is normal with no evidence of obstruction. Surgical clips are present in the right upper quadrant of the abdomen recent cholecystectomy. There are no abnormal calcifications overlying the urinary tracts. There are degenerative changes of the lower lumbar spine. IMPRESSION: 1. No evidence of bowel obstruction. 2. Recent cholecystectomy. 3. Degenerative changes of the lower lumbar spine. RPTAT: QQ .Burke Marcus MD, Date Time Electronically viewed and signed by .Burke Marcus MD, on 08/09/2016 19:35 .R/
[2016-08-09 20:37] VITALS: BP 130/78; RESP 18
[2016-08-09] MEDS: SENNA TAB PO SCH (21:00)
[2016-08-10] MEDS: PANTOPRAZOLE (EC) 40 MG TAB PO SCH ×2 (06:54→17:07)
[2016-08-10 07:30] VITALS: BP 121/72; RESP 18
[2016-08-10] MEDS: DOCUSATE SODIUM 100 MG CAP PO SCH ×2 (08:28→20:37)
[2016-08-10] MEDS: SUCRALFATE (100 MG/ML) 10ML CUP PO SCH ×4 (08:28→20:37)
--- NOTE | 2016-08-10 09:47 | PN ---
Date/Time of Note Date/Time of Note DATE: 08/10/16 TIME: 09:45 Assessment/Plan VTE Prophylaxis VTE Prophylaxis Intervention: other Lines/Catheters IV Catheter Type (from Nrs[facility]): Saline Lock Urinary Cath still in place: No Assessment/Plan Assessment/Plan 1. Debility in the setting of cholecystitis s/p laparoscopic cholecystectomy, and GI bleed, with impaired mobility/gait/ADLs. Continue medical management per GI and general surgery. Continue PT/OT. SPV for grooming and lower body dressing. 2. Postop Urinary retention. Continue bladder program, timed voidings. Voiding improving. Continue to monitor PVRs, I/O cath as needed. Urology following. 3. Hypertension. BP Controlled. 4. Anemia. Continue to monitor hemoglobin/hematocrit. Continue medial management per GI and internal medicine. 5. Hypokalemia. S/P PO supplementation yesterday. Repeat BMP today pending. Subjective 24 Hr Interval Summary Free Text/Dictation Rehab progress note Subjective: No acute complaints. Nursing reports has not required I/O cath in past 24 hours, less than 300cc PVR. ROS: Denies dysuria, no chest pain, no shortness of breath, no abdominal pain, no nausea or vomiting, no chills. Exam/Review of Systems Vital Signs Vitals Vital Signs Date Time Temp Pulse Resp B/P Pulse Ox O2 Delivery O2 Flow Rate FiO2 08/10/16 07:30 98.3 84 18 121/72 97 08/06/16 08:00 Room Air Intake and Output 08/09/16 08/09/16 08/10/16 15:00 23:00 07:00 Intake Total 1600 ml 520 ml Output Total 700 ml Balance 900 ml 520 ml Exam General: Awake, alert, no acute distress CV: Regular rate and rhythm, s1s2 Lungs without wheezing, symmetrical air entry bilaterally Abdomen soft, nontender Extremities without cyanosis, no new swelling Neuro without focal changes, follows simple commands. Results Result Diagram: 08/09/1660708/09/16607 Medications Medications Current Medications Pantoprazole (Protonix Tab) 40 mg BID@06,18 PO Last administered on 08/10/16t 06:54; Admin Dose 40 MG; Start 08/05/16 at 06:00 Acetaminophen/ Hydrocodone Bitart ([place] (5/325)) 1 tab Q6H PRN PO MODERATE PAIN LEVEL 4-6; Start 08/04/16 at 21:16 Docusate Sodium (Colace) 100 mg BID PO Last administered on 08/10/16 08:28; Admin Dose 100 MG; Start 08/05/16 at 09:00 Senna (Senokot) 1 tab HS PO Last administered on 08/08/16 20:30; Admin Dose 1 TAB; Start 08/05/16 at 21:00 Magnesium Hydroxide (Milk Of Mag) 30 ml BID PRN PO CONSTIPATION; Start at 21:30 Lactulose (Enulose) 20 gm DAILY PRN PO CONSTIPATION; Start 08/04/16 at 21:30 Bisacodyl (Dulcolax Supp) 10 mg DAILY PRN [place] CONSTIPATION; Start 08/04/16 at 21 :30 Sucralfate (Carafate Susp) 1 gm QID PO Last administered on 08/10/16 08:28; Admin Dose 1 GM; Start 08/04/16 at 21:00 MINGO CUEVAS Aug 10, 2016 09:47
[2016-08-10 10:28] LABS: POTASSIUM 3.1 mmol/L (3.5-5.1)
[2016-08-10 10:31] LABS: CREATININE 0.55 mg/dl (0.44-1.00)
[2016-08-10 10:32] LABS: CALCIUM 8.4 mg/dl (8.4-10.2)
[2016-08-10] MEDS ORDERED: POTASSIUM CHLORIDE (SR) 20 MEQ TAB PO STA (10:56)
--- NOTE | 2016-08-10 14:56 | PN ---
DATE: 08/10/2016 SUBJECTIVE: The patient is comfortable and she has been voiding, but incomplete bladder emptying. OBJECTIVE VITAL SIGNS: Her temperature is 98.3, pulse 84, respiration 18, blood pressure 121/72. ABDOMEN: Soft. There is no abdominal tenderness. This morning the patient voided about 150, her PVR was 278, so no need for straight catheterization. Again, she voided another 100 mL and the PVR was 265. The KUB that she had yesterday did not show any fecal impaction or constipation. LABORATORY DATA: Her BUN 7, creatinine 0.55, sodium 138, potassium 3.1, chloride 102, CO2 28, and s he just also received potassium chloride p.o. IMPRESSION: Increased high post-void residual urine, but not to a degree where she will require cat heterization. PLAN: To continue to encourage her to urinate every 2 hours and also when she urinates, try to void again. Also, as she moves around or more, she will hopefully empty her bladder. Dictated By: ABRIL SUH/CHIARA Conf#: [id number] DID#: [id number]
[2016-08-10 20:31] VITALS: BP 121/72; RESP 18
[2016-08-10] MEDS: SENNA TAB PO SCH (20:37)
[2016-08-11] MEDS: PANTOPRAZOLE (EC) 40 MG TAB PO SCH ×2 (05:59→18:38)
[2016-08-11 07:30] VITALS: BP_SYST 108; RESP 18
[2016-08-11] MEDS: SUCRALFATE (100 MG/ML) 10ML CUP PO SCH ×4 (09:26→20:25)
[2016-08-11] MEDS: DOCUSATE SODIUM 100 MG CAP PO SCH ×2 (09:26→20:25)
--- NOTE | 2016-08-11 12:18 | CONS ---
Date/Time of Note Date/Time of Note DATE: 08/11/16 TIME: 12:18 Consult Date/Type/Reason Admit Date/Time Aug 04, 2016 at 19:59 Type of Consultation: internal medicine Objective Vital Signs Date Time Temp Pulse Resp B/P Pulse Ox O2 Delivery O2 Flow Rate FiO2 08/10/16 20:31 98.9 86 18 121/72 97 Intake and Output 08/10/16 08/10/16 08/11/16 14:59 22:59 06:59 Intake Total 1670 ml 240 ml Output Total 950 ml 1000 ml Balance -950 ml 670 ml 240 ml INTERDISCIPLINARY TEAM CONFERENCE BOWEL- Cont BLADDER-Retention requiring I&O cath 1/day SKIN- intact OT- DRESSING-I BATHING-RI TOILETING-RI PT- BED MOBILITY-I TRANSFERS-I AMBULATION-RI 200 feet A/P- Interdisciplinary team conference held today. Please see interdisciplinary sheet. Working toward d.c. on 08/12 with post discharge follow up of physical therapy, occupational therapy. Results/Medications Result Diagram: 08/09/16 0608 08/11/16 0600 Results 24 hrs Laboratory Tests Test 08/11/16 06:00 Potassium Level 4.0 Medications Current Medications Pantoprazole (Protonix Tab) 40 mg BID@06,18 PO Last administered on 08/11/16 05 :59; Admin Dose 40 MG; Start 08/05/16 at 06:00 Acetaminophen/ Hydrocodone Bitart ([place] (5/325)) 1 tab Q6H PRN PO MODERATE PAIN LEVEL 4-6; Start 08/04/16 at 21:16 Docusate Sodium (Colace) 100 mg BID PO Last administered on 08/11/16 09:26; Admin Dose 100 MG; Start 08/05/16 at 09:00 Senna (Senokot) 1 tab HS PO Last administered on 08/10/16 20:37; Admin Dose 1 TAB; Start 08/05/16 at 21:00 Magnesium Hydroxide (Milk Of Mag) 30 ml BID PRN PO CONSTIPATION; Start at 21:30 Lactulose (Enulose) 20 gm DAILY PRN PO CONSTIPATION; Start 08/04/16 at 21:30 Bisacodyl (Dulcolax Supp) 10 mg DAILY PRN [place] CONSTIPATION; Start 08/04/16 at 21 :30 Sucralfate (Carafate Susp) 1 gm QID PO Last administered on 08/11/16t 09:26; Admin Dose 1 GM; Start 08/04/16 at 21:00 GENESIS HUTSON MD August 11, 2016 12:18
--- NOTE | 2016-08-11 15:28 | CONS ---
Date/Time of Note Date/Time of Note DATE: 08/11/16 TIME: 15:27 Consult Date/Type/Reason Admit Date/Time Aug 04, 2016 at 19:59 Type of Consultation: internal medicine Subjective Patient comfortable no new events Objective Vital Signs Date Time Temp Pulse Resp B/P Pulse Ox O2 Delivery O2 Flow Rate FiO2 08/11/16 07:30 98.7 79 18 108/ 97 Intake and Output 08/10/16 08/10/16 08/11/16 15:00 23:00 07:00 Intake Total 1670 ml 240 ml Output Total 950 ml 1000 ml Balance -950 ml 670 ml 240 ml Exam PHYSICAL EXAMINATION: GENERAL: Well-nourished, well-developed lady, comfortable at rest, no acute distress. VITAL SIGNS: As above NECK: Supple, no JVD or lymphadenopathy. CARDIAC: S1, S2, no added sounds or murmurs. CHEST: Diminished air entry bilaterally. ABDOMEN: Soft, nontender. No guarding or rebound. EXTREMITIES: No cyanosis, clubbing, edema. NEUROLOGIC: Generalized weakness. Results/Medications Result Diagram: 08/09/16 0608 08/11/16 0600 Results 24 hrs Laboratory Tests Test 08/11/16 06:00 Potassium Level 4.0 Medications Current Medications Pantoprazole (Protonix Tab) 40 mg BID@06,18 PO Last administered on 08/11/16 05 :59; Admin Dose 40 MG; Start 08/05/16 at 06:00 Acetaminophen/ Hydrocodone Bitart ([place] (5/325)) 1 tab Q6H PRN PO MODERATE PAIN LEVEL 4-6; Start 08/04/16 at 21:16 Docusate Sodium (Colace) 100 mg BID PO Last administered on 08/11/16 09:26; Admin Dose 100 MG; Start 08/05/16 at 09:00 Senna (Senokot) 1 tab HS PO Last administered on 08/10/16 20:37; Admin Dose 1 TAB; Start 08/05/16 at 21:00 Magnesium Hydroxide (Milk Of Mag) 30 ml BID PRN PO CONSTIPATION; Start at 21:30 Lactulose (Enulose) 20 gm DAILY PRN PO CONSTIPATION; Start 08/04/16 at 21:30 Bisacodyl (Dulcolax Supp) 10 mg DAILY PRN [place] CONSTIPATION; Start 08/04/16 at 21 :30 Sucralfate (Carafate Susp) 1 gm QID PO Last administered on 08/11/16t 13:06; Admin Dose 1 GM; Start 08/04/16 at 21:00 Assessment/Plan Chief Complaint/Hosp Course IMPRESSION 1. Recent laparoscopic cholecystectomy. 2. History of hypertension. 3. Postop gastrointestinal bleed. 4. Recent UTI now with urinary retention PLAN 1. Continue physical therapy. 2. Deep venous thrombosis and gastrointestinal prophylaxis. Discharge scheduled for tomorrow Problems: NBA STRICKLAND MD, [facility] August 11, 2016 15:28
[2016-08-11 20:08] VITALS: BP 118/72; RESP 18
[2016-08-11] MEDS: SENNA TAB PO SCH (20:25)
[2016-08-12] MEDS: PANTOPRAZOLE (EC) 40 MG TAB PO SCH (06:01)
[2016-08-12 08:04] VITALS: BP 118/69; RESP 18
[2016-08-12] MEDS: SUCRALFATE (100 MG/ML) 10ML CUP PO SCH (08:37)
[2016-08-12] MEDS: DOCUSATE SODIUM 100 MG CAP PO SCH (08:37)
== END 2016-08-12 13:20 | disposition home health service (06) | DRG 949 ==
LOC: VRC 19:59
PROVIDERS: ADMIT Physical Medicine & Rehabilitation; ATTEND Internal Medicine Pulmonary Disease
DX: Z48.815 Encounter for surgical aftercare following surgery on the digestive system (principal); E87.1 Hypo-osmolality and hyponatremia; K26.9 Duodenal ulcer, unspecified as acute or chronic, without hemorrhage or perforation; D64.9 Anemia, unspecified; I10 Essential (primary) hypertension; R53.81 Other malaise; R33.9 Retention of urine, unspecified; Z74.09 Other reduced mobility; E87.6 Hypokalemia
CPT/HCPCS: 74000; 80048; 80053; 81001; 81003; 83735; 84100; 84132; 85025; 87081; 87086; 97110; 97112; 97116; 97150; 97163; 97166; 97530; 97535; A4310